=== PATIENT | female | born 1955 | race Hispanic/Latino ===

== ENCOUNTER 2018-10-06 09:09 | Emergency (ER) | payer OTHER ==
[2018-10-06] MEDS ORDERED: ONDANSETRON 4 MG/2 ML VIAL ONE (09:46)
[2018-10-06] MEDS ORDERED: NA CHLORIDE 0.9% 500 ML ONE (09:46)
[2018-10-06] MEDS ORDERED: MORPHINE 4 MG/ML SYR ONE (09:46)
[2018-10-06 10:16] LABS: Urine Blood 2+ (NEG); Urine Glucose NEGATIVE (NEG); Urine Protein NEGATIVE (NEG); Urine pH 5.5 (5.0-7.0)
[2018-10-06 10:19] LABS: Absolute Lymphocytes (CBC) 1.2 K/uL (0.7-4.9); Absolute Monocytes 0.6 K/uL (0.1-1.3); Absolute Neutrophil 7.9 K/uL (1.8-8.0); Basophils % 0.6 % (0-1.3); Eosinophils % 0.8 % (0-4.4); Hematocrit 38.1 % (36.0-45.0); MPV 9.2 fL (7.6-11.3); Monocytes % 6.5 % (3.3-12.3); RBC Red Blood Cell Count 4.18 M/uL (3.86-4.86)
[2018-10-06 10:32] LABS: Albumin 3.2 g/dL (3.4-5.0); Bilirubin Direct 0.1 mg/dL (0-0.2); Bilirubin Total 0.4 mg/dL (0.2-1.0); Potassium 3.8 mmol/L (3.5-5.1); Protein, Total 7.4 g/dL (6.4-8.2)
--- NOTE | 2018-10-06 11:14 | RAD REPORT ---
EXAM DESCRIPTION: CT - Abdomen Pelvis W Contrast - 10/06/2018 10:56 am CLINICAL HISTORY: Left lower quadrant pain COMPARISON: October 2012 TECHNIQUE: Biphasic, helical CT imaging of the abdomen and pelvis was performed following 100 ml non -ionic IV contrast. No oral contrast administered. All CT scans are performed using dose optimization technique as appropriate and may include automated exposure control or mA/KV adjustment according to patient size. A FINDINGS: No suspicious findings in the lung bases. The liver, spleen, and pancreas show no suspicious findings. Gallbladder and biliary tree are also wi thout suspicious finding. Gallstones can be occult on CT imaging. Symmetric renal function is seen with no hydronephrosis or suspicious renal mass. No pyelonephritis o r acute parenchymal process. No bladder abnormalities. No adrenal abnormalities. No stomach or small bowel acute finding. No appendicitis findings. Moderate stool volume in the right -side of the colon. Sigmoid colon shows a 7 centimeter long segment of circumferential wall thickenin g with stranding in the adjacent fat. Infectious/inflammatory process is favored over malignancy. Mal ignancy is not excluded but can be correlated with a follow-up colonoscopy after medical management. Patient has moderate diverticulosis. Trace amount of free fluid adjacent to the involved colon. No ex traluminal free air or abscess. No extravasation of bowel content suspected. No free air or pneumatos is. No hernia, mass or bulky lymphadenopathy. Uterus is absent. Ovaries are absent or atrophic. No suspicious bony findings. IMPRESSION: Moderate sigmoid diverticulitis. Malignancy of the sigmoid colon is unlikely but can be correlated with follow-up endoscopic evaluation after medical management. No abscess, free air or surgically emergent finding.
--- NOTE | 2018-10-06 11:57 | ER ---
Nurse's Notes [facility] Name: Ginger Marquez Age: 63 yrs Sex: Female : 1955 Arrival Date: 10/06/2018 Time: 09:13 Bed 14 Private MD: Diagnosis: Sigmoid Diverticulitis;Abdominal and pelvic pain Presentation: 10/06 09:22 Presenting complaint: Patient states: LLQ pain that radiates to L lower back x 2 days, ph also reports nausea, denies V/D or urinary symptoms. Transition of care: patient was not received from another setting of care. Onset of symptoms was October 06, 2018. Risk Assessment: Do you want to hurt yourself or someone else? Patient reports no desire to harm self or others. Initial Sepsis Screen: Does the patient meet any 2 criteria? No. Patient's initial sepsis screen is negative. Does the patient have a suspected source of infection? No. Patient's initial sepsis screen is negative. Care prior to arrival: None. 09:22 Method Of Arrival: Ambulatory 09:22 Acuity: [place] 3 ph Historical: - Allergies: 09:25 Bactrim; ph - PMHx: 09:25 Hypertension; Hypothyroidism; Depression; ph - Immunization history:: Adult Immunizations unknown. - Social history:: Smoking status: Patient/guardian denies using tobacco. - Ebola Screening: : No symptoms or risks identified at this time. Screenin:20 Abuse screen: Denies threats or abuse. Denies injuries from another. Nutritional jl7 screening: No deficits noted. Tuberculosis screening: No symptoms or risk factors identified. Fall Risk IV access (20 points). Assessment: 09:55 General: Appears in no apparent distress. uncomfortable, Behavior is calm, cooperative, jl7 appropriate for age. Pain: Complains of pain in left lower quadrant and suprapubic area Pain radiates to left flank Pain currently is 7 out of 10 on a pain scale. Pain began 2-3 days ago. Is intermittent. Neuro: Level of Consciousness is awake, alert, obeys commands, Oriented to person, place, time, situation. Cardiovascular: Patient's skin is warm and dry. Respiratory: Airway is patent Respiratory effort is even, unlabored, Respiratory pattern is regular, symmetrical. GI: Abdomen is round non-distended, Reports nausea, Patient currently denies diarrhea, vomiting. : Denies burning with urination, inability to void, pain with urination urinary frequency. Derm: Skin is pink, warm \T\ dry. 11:00 Reassessment: Patient appears in no apparent distress at this time. Patient and/or jl7 family updated on plan of care and expected duration. Pain level reassessed. Patient is alert, oriented x 3, equal unlabored respirations, skin warm/dry/pink. Patient states symptoms have improved. 12:00 Reassessment: Patient appears in no apparent distress at this time. Patient and/or jl7 family updated on plan of care and expected duration. Pain level reassessed. Patient is alert, oriented x 3, equal unlabored respirations, skin warm/dry/pink. pt reports increased pain at this time, ERD notified, see MAR for orders. Vital Signs: 09:23 BP 152 / 62; Pulse 76; Resp 18; Temp 97.5; Pulse Ox 98% on R/A; Weight 92.08 kg; Height ph 5 ft. 3 in. (160.02 cm); 10:00 BP 148 / 59; Pulse 68; Resp 16 S; Pulse Ox 96% on R/A; Pain 7/10; jl7 10:37 Pain 3/10; jl7 12:00 BP 149 / 60; Pulse 69; Resp 16 S; Pulse Ox 98% on R/A; Pain 6/10; jl7 09:23 Body Mass Index 35.96 (92.08 kg, 160.02 cm) ph ED Course: 09:13 Patient arrived in ED. mr 09:16 Yana Abrams RN is Primary Nurse. jl7 09:23 Adrian Horn MD is Attending Physician. kdr 09:23 Triage completed. ph 09:25 Arm band placed on Patient placed in an exam room. ph 09:37 Radiology exam delayed due to lab results not completed at this time. (BUN/Creatinine). vr 10:00 Radiology exam delayed due to lab results not completed at this time. (BUN/Creatinine). kw1 10:20 Patient has correct armband on for positive identification. Placed in gown. Bed in low jl7 position. Call light in reach. Side rails up X 1. Pulse ox on. NIBP on. Warm blanket given. 10:20 Initial lab(s) drawn, by me, sent to lab. Urine collected: clean catch specimen, clear. jl7 Inserted saline lock: 20 gauge in right antecubital area, using aseptic technique. Blood collected. 10:54 CT completed. Patient tolerated procedure well. Patient moved to CT via wheelchair. vr Patient moved back from CT. 10:56 CT Abd/Pelvis - W/Contrast In Process Unspecified. EDMS 12:18 No provider procedures requiring assistance completed. IV discontinued, intact, jl7 bleeding controlled, No redness/swelling at site. Pressure dressing applied. Administered Medications: 10:00 Drug: NS 0.9% 500 ml Route: IV; Rate: bolus; Site: right antecubital; jl7 10:01 Drug: Zofran 4 mg Route: IVP; Site: right antecubital; jl7 10:19 Follow up: Response: No adverse reaction; Nausea is decreased jl7 10:03 Drug: morphine 4 mg Route: IVP; Site: right antecubital; jl7 10:37 Follow up: Pain 3/10 Adult; Response: No adverse reaction; Pain is decreased jl7 12:13 Drug: Flagyl 500 mg Route: PO; jl7 12:14 Follow up: Response: Medication administered at discharge. jl7 12:13 Drug: Cipro 500 mg Route: PO; jl7 12:15 Follow up: Response: Medication administered at discharge. jl7 12:13 Drug: [place] 10 mg-325 mg 1 tabs Route: PO; jl7 12:15 Follow up: Response: Medication administered at discharge. jl7 Outcome: 11:56 Discharge ordered by . kdr 12:18 Discharged to home ambulatory, with family. jl7 12:18 Condition: stable 12:18 Discharge instructions given to patient, family, Instructed on discharge instructions, follow up and referral plans. medication usage, Demonstrated understanding of instructions, follow-up care, medications, Prescriptions given X 4. 12:19 Patient left the ED. jl7 Signatures: Dispatcher [employer] EDMS Adrian Horn MD MD kdr Rivera, Mary mr Davis, Pam Ambrocio RN RN Yana Huff RN RN joi7 Mari Kear[place]1 Corrections: (The following items were deleted from the chart) 12:18 12:00 No provider procedures requiring assistance completed. jl7 jl7 12:18 12:00 IV discontinued, intact, bleeding controlled, No redness/swelling at site. jl7 Pressure dressing applied, jl7
--- NOTE | 2018-10-06 11:57 | EDPHYS ---
Physician Documentation [facility] Name: Ginger Marquez Age: 63 yrs Sex: Female : 1955 Arrival Date: 10/06/2018 Time: 09:13 Bed 14 Private MD: ED Physician Adrian Horn HPI: 10/06 09:34 This 63 yrs old Female presents to ER via Ambulatory with complaints of Flank kdr Pain. 09:34 The patient presents with abdominal pain in the lower abdomen, in the left lower kdr quadrant. Onset: The symptoms/episode began/occurred last night. The symptoms radiate to the left flank. Associated signs and symptoms: Pertinent positives: nausea and vomiting, diarrhea, fever, Pertinent negatives: anorexia, chest pain, constipation, palpitations, vaginal discharge, vomiting, vomiting blood. The symptoms are described as achy, crampy, intermittent, vague, waxing/waning. Modifying factors: The symptoms are alleviated by nothing, the symptoms are aggravated by movement, pressure, touching the area. Severity of pain: At its worst the pain was mild moderate just prior to arrival, in the emergency department the pain is unchanged. The patient has experienced similar episodes in the past, a few times, Has had diverticulitis in the past. The patient has not recently seen a physician. Historical: - Allergies: 09:25 Bactrim; ph - PMHx: 09:25 Hypertension; Hypothyroidism; Depression; ph - Immunization history:: Adult Immunizations unknown. - Social history:: Smoking status: Patient/guardian denies using tobacco. - Ebola Screening: : No symptoms or risks identified at this time. ROS: 09:34 Constitutional: Negative for fever, chills, and weight loss, Eyes: Negative for injury, kdr pain, redness, and discharge, ENT: Negative for injury, pain, and discharge, Neck: Negative for injury, pain, and swelling, Cardiovascular: Negative for chest pain, palpitations, and edema, Respiratory: Negative for shortness of breath, cough, wheezing, and pleuritic chest pain, Back: Negative for injury and pain, : Negative for injury, bleeding, discharge, and swelling, MS/Extremity: Negative for injury and deformity, Skin: Negative for injury, rash, and discoloration, Neuro: Negative for headache, weakness, numbness, tingling, and seizure activity. Psych: Negative for depression, anxiety, suicide ideation, homicidal ideation, and hallucinations, Allergy/Immunology: Negative for hives, rash, and allergies, Endocrine: Negative for neck swelling, polydipsia, polyuria, polyphagia, and marked weight changes, Hematologic/Lymphatic: Negative for swollen nodes, abnormal bleeding, and unusual bruising. 09:34 Abdomen/GI: Positive for abdominal pain, nausea and vomiting, Negative for constipation, abdominal cramps, abdominal distension, anorexia, dysphagia, hematemesis, black/tarry stool, rectal bleeding, bowel incontinence. Exam: 09:34 Constitutional: This is a well developed, well nourished patient who is awake, alert, kdr and in no acute distress. Head/Face: Normocephalic, atraumatic. Eyes: Pupils equal round and reactive to light, extra-ocular motions intact. Lids and lashes normal. Conjunctiva and sclera are non-icteric and not injected. Cornea within normal limits. Periorbital areas with no swelling, redness, or edema. Neck: Trachea midline, no thyromegaly or masses palpated, and no cervical lymphadenopathy. Supple, full range of motion without nuchal rigidity, or vertebral point tenderness. No Meningismus. Chest/axilla: Normal chest wall appearance and motion. Nontender with no deformity. No lesions are appreciated. Cardiovascular: Regular rate and rhythm with a normal S1 and S2. No gallops, murmurs, or rubs. Normal PMI, no JVD. No pulse deficits. Respiratory: Lungs have equal breath sounds bilaterally, clear to auscultation and percussion. No rales, rhonchi or wheezes noted. No increased work of breathing, no retractions or nasal flaring. Back: No spinal tenderness. No costovertebral tenderness. Full range of motion. Skin: Warm, dry with normal turgor. Normal color with no rashes, no lesions, and no evidence of cellulitis. MS/ Extremity: Pulses equal, no cyanosis. Neurovascular intact. Full, normal range of motion. Neuro: Awake and alert, GCS 15, oriented to person, place, time, and situation. Cranial nerves II-XII grossly intact. Motor strength 5/5 in all extremities. Sensory grossly intact. Cerebellar exam normal. Normal gait. Psych: Awake, alert, with orientation to person, place and time. Behavior, mood, and affect are within normal limits. 09:34 Abdomen/GI: Inspection: abdomen appears normal, obese Bowel sounds: active, diminished, in all quadrants, Palpation: soft, mild abdominal tenderness, in the suprapubic area, left upper quadrant and left lower quadrant. Vital Signs: 09:23 BP 152 / 62; Pulse 76; Resp 18; Temp 97.5; Pulse Ox 98% on R/A; Weight 92.08 kg; Height ph 5 ft. 3 in. (160.02 cm); 10:00 BP 148 / 59; Pulse 68; Resp 16 S; Pulse Ox 96% on R/A; Pain 7/10; jl7 10:37 Pain 3/10; jl7 12:00 BP 149 / 60; Pulse 69; Resp 16 S; Pulse Ox 98% on R/A; Pain 6/10; jl7 09:23 Body Mass Index 35.96 (92.08 kg, 160.02 cm) ph MDM: 09:34 Data reviewed: vital signs, nurses notes, lab test result(s), radiologic studies. kdr Counseling: I had a detailed discussion with the patient and/or guardian regarding: the historical points, exam findings, and any diagnostic results supporting the discharge/admit diagnosis, lab results, radiology results, the need for outpatient follow up. 11:56 Patient medically screened. [facility] 10/06 09:34 Order name: Basic Metabolic Panel; Complete Time: 10:50 kdr 10/06 09:34 Order name: CBC with Diff; Complete Time: 10:50 kdr 10/06 09:34 Order name: Creatinine for Radiology; Complete Time: 10:50 kdr 10/06 09:34 Order name: Hepatic Function; Complete Time: 10:50 kdr 10/06 09:34 Order name: Lipase; Complete Time: 10:50 kdr 10/06 10:04 Order name: Urine Dipstick--Ancillary (enter results); Complete Time: 10:50 eb 10/06 09:34 Order name: IV Saline Lock; Complete Time: 10:17 kdr 10/06 09:34 Order name: CT Abd/Pelvis - W/Contrast; Complete Time: 11:54 kdr 10/06 09:34 Order name: Labs collected and sent; Complete Time: 10:17 kdr Administered Medications: 10:00 Drug: NS 0.9% 500 ml Route: IV; Rate: bolus; Site: right antecubital; jl7 10:01 Drug: Zofran 4 mg Route: IVP; Site: right antecubital; jl7 10:19 Follow up: Response: No adverse reaction; Nausea is decreased jl7 10:03 Drug: morphine 4 mg Route: IVP; Site: right antecubital; jl7 10:37 Follow up: Pain 3/10 Adult; Response: No adverse reaction; Pain is decreased jl7 12:13 Drug: Flagyl 500 mg Route: PO; jl7 12:14 Follow up: Response: Medication administered at discharge. jl7 12:13 Drug: Cipro 500 mg Route: PO; jl7 12:15 Follow up: Response: Medication administered at discharge. jl7 12:13 Drug: [place] 10 mg-325 mg 1 tabs Route: PO; jl7 12:15 Follow up: Response: Medication administered at discharge. jl7 Disposition: 10/06/18 11:56 Discharged to Home. Impression: Sigmoid Diverticulitis, Abdominal and pelvic pain. - Condition is Stable. - Discharge Instructions: Abdominal Pain, Adult, [id number]. - Prescriptions for Cipro 500 mg Oral Tablet - take 1 tablet by ORAL route every 12 hours for 10 days; 20 tablet. Flagyl 500 mg Oral Tablet - take 1 tablet by ORAL route every 6 hours for 10 days; 40 tablet. Tylenol- Codeine #3 300-30 mg Oral Tablet - take 2 tablets by ORAL route every 4-6 hours As needed Take one to two tablets every four to six hours as needed for pain.; 16 tablet. Zofran 4 mg Oral Tablet - take 1 tablet by ORAL route every 4-6 hours As needed; 16 tablet. - Medication Reconciliation Form, Thank You Letter, Antibiotic Education, Prescription Opioid Use form. - Follow up: Private Physician; When: 2 - 3 days; Reason: If symptoms return, Further diagnostic work-up, Recheck today's complaints, Continuance of care, Re-evaluation by your physician. - Problem is an acute exacerbation. - Symptoms have improved. Signatures: Dispatcher [employer] EDMS Adrian Horn MD MD kdr Hall, Patricia, RN RN Yana Huff RN RN jl7 Corrections: (The following items were deleted from the chart) 12:19 11:56 10/06/2018 11:56 Discharged to Home. Impression: Sigmoid Diverticulitis; jl7 Abdominal and pelvic pain. Condition is Stable. Forms are Medication Reconciliation Form, Thank You Letter, Antibiotic Education, Prescription Opioid Use. Follow up: Private Physician; When: 2 - 3 days; Reason: If symptoms return, Further diagnostic work-up, Recheck today's complaints, Continuance of care, Re-evaluation by your physician. Problem is an acute exacerbation. Symptoms have improved. kdr
[2018-10-06] MEDS ORDERED: metroNIDAZOLE 500 MG TABLET ONE (12:07)
[2018-10-06] MEDS ORDERED: HYDROCODONE/APAP 10/325 TAB ONE (12:08)
[2018-10-06] MEDS ORDERED: CIPROFLOXACIN HCL 500 MG TAB ONE (12:09)
== END 2018-10-06 12:19 | disposition home or self-care (01) ==
LOC: ER 09:09
DX: K57.32 Diverticulitis of large intestine without perforation or abscess without bleeding (principal); I10 Essential (primary) hypertension; Z88.1 Allergy status to other antibiotic agents
CPT/HCPCS: 36415; 74177; 80048; 80076; 81003; 83690; 85025; J2405; Q9967; 96374; 96375; 99284

== ENCOUNTER 2019-03-22 22:18 | Inpatient (IN) | payer OTHER ==
--- OUTSIDE RECORDS SUMMARY | 2019-03-22 22:20 | XMS REPORT ---
:1955 [facility] Address [address] [place] [place] [address] Care Team Providers Name Role Phone Unavailable Unavailable Unavailable Payers Payer Name Policy Type Policy Number Effective Date Expiration Date Problems This patient has no known problems. Allergies, Adverse Reactions, Alerts Allergy Name Allergy Status Severity Reaction(s) Onset Inactive Treating Comments Type Date Date Clinician levofloxacin DA Active SV 2018-06 00:00:0 0 fluconazole DA Active MO 2017-02 00:00:0 0 levofloxacin DA Active SV 2017-02 00:00:0 0 Medications This patient has no known medications.
[2019-03-22 23:53] LABS: Absolute Lymphocytes (CBC) 1.6 K/uL (0.7-4.9); Basophils % 0.3 % (0-1.3); Eosinophils % 2.2 % (0-4.4); Hematocrit 36.9 % (36.0-45.0); MPV 9.1 fL (7.6-11.3); Monocytes % 8.4 % (3.3-12.3); RBC Red Blood Cell Count 4.05 M/uL (3.86-4.86)
[2019-03-22 23:55] LABS: Urine Blood 1+ (NEG); Urine Glucose NEGATIVE (NEG); Urine Protein NEGATIVE (NEG)
[2019-03-22] MEDS ORDERED: FENTANYL CITR 100 MCG/2 ML ONE (23:57)
[2019-03-23 00:04] LABS: Albumin 3.2 g/dL (3.4-5.0); Bilirubin Direct 0.1 mg/dL (0-0.2); Bilirubin Total 0.3 mg/dL (0.2-1.0); Potassium 3.7 mmol/L (3.5-5.1); Protein, Total 7.6 g/dL (6.4-8.2)
[2019-03-23 00:06] LABS: Urine Bacteria <20 /HPF (<20); Urine Culture Reflex Order NOT NEEDED; Urine RBC <5 /HPF (NONE SEEN)
[2019-03-23] MEDS ORDERED: NA CHLORIDE 0.9% 50 ML IV ONE (01:49)
[2019-03-23] MEDS ORDERED: CEFOXITIN SODIUM 1 GM/VIAL ONE (01:49)
--- NOTE | 2019-03-23 02:49 | EDPHYS ---
Physician Documentation [facility] Name: Ginger Marquez Age: 63 yrs Sex: Female : 1955 Arrival Date: 03/22/2019 Time: 22:21 Bed 17 Private MD: ED Physician Austen [place] Historical: - Allergies: 03/22 22:37 Bactrim; ak1 - Home Meds: 22:37 losartan oral oral [Active]; primin [Active]; levothyroxine oral [Active]; ak1 22:38 Lexapro 15mg Oral once daily [Active]; ak1 - PMHx: 22:37 Depression; Hypertension; Hypothyroidism; Diverticulitis; ak1 - PSHx: 22:37 left knee replacement; Hysterectomy; Bladder suspension; ak1 - Immunization history:: Adult Immunizations up to date. - Social history:: Smoking status: Patient/guardian denies using tobacco. - Ebola Screening: : No symptoms or risks identified at this time. Vital Signs: 22:35 BP 159 / 67; Pulse 73; Resp 16; Temp 97.9; Pulse Ox 97% on R/A; Weight 95.25 kg (R); ak1 Height 5 ft. 3 in. (160.02 cm) (R); Pain 10/10; 23:00 BP 139 / 57; Pulse 72; Resp 17 S; Pulse Ox 100% on R/A; cc3 03/23 00:45 BP 129 / 59; Pulse 68; Resp 16 S; Pulse Ox 96% on R/A; cc3 01:18 BP 134 / 57; Pulse 69; Resp 16 S; Pulse Ox 98% on R/A; cc3 02:25 BP 127 / 53; Pulse 72; Resp 15 S; Pulse Ox 98% on R/A; cc3 03:33 BP 132 / 77; Pulse 75; Resp 16 S; Pulse Ox 98% on R/A; cc3 04:15 BP 131 / 63; Pulse 72; Resp 17 S; Pulse Ox 96% on R/A; cc3 03/22 22:35 Body Mass Index 37.20 (95.25 kg, 160.02 cm) ak1 MDM: 03/22 23:21 Patient medically screened. 03/22 22:53 Order name: Urine Microscopic Only; Complete Time: 00:23 03/22 23:24 Order name: Basic Metabolic Panel; Complete Time: 00:23 03/22 23:24 Order name: CBC with Diff; Complete Time: 00:23 03/22 23:24 Order name: Hepatic Function; Complete Time: 00:23 03/22 23:24 Order name: Lipase; Complete Time: 00:23 03/22 23:41 Order name: Urine Dipstick--Ancillary (enter results); Complete Time: 00:23 [facility] 03/22 22:53 Order name: Urine Dipstick-Ancillary (obtain specimen); Complete Time: 23:40 03/22 23:24 Order name: IV Saline Lock; Complete Time: 23:46 03/22 23:24 Order name: Labs collected and sent; Complete Time: 23:46 03/22 23:24 Order name: CT Stone Protocol gs Administered Medications: 23:40 Drug: fentaNYL (PF) 50 mcg Route: IVP; Site: right antecubital; cc3 03/23 00:30 Follow up: Response: No adverse reaction; Pain is decreased cc3 01:30 Drug: cefOXitin 1 grams Route: IVPB; Infused Over: 30 mins; Site: right antecubital; cc3 02:00 Follow up: Response: No adverse reaction; IV Status: Completed infusion; IV Intake: [id number] Disposition: 03/23/19 02:49 Hospitalization ordered by Marcio Camp for Inpatient Admission. Preliminary diagnosis is Diverticulitis of large intestine without perforation or abscess without bleeding. - Bed requested for Telemetry/MedSurg (Inpatient). - Status is Inpatient Admission. cc3 - Condition is Stable. - Problem is new. - Symptoms have improved. UTI on Admission? No Signatures: Dispatcher [employer] EDMS Ursula Sawyer RN RN ak1 Jessica Neville RN RN Austen Ellington MD MD Davina Last cc3 Corrections: (The following items were deleted from the chart) 03:21 02:49 Hospitalization Ordered by Marcio Camp MD for Inpatient Admission. Preliminary cg diagnosis is Diverticulitis of large intestine without perforation or abscess without bleeding. Bed requested for Telemetry/MedSurg (Inpatient). Status is Inpatient Admission. Condition is Stable. Problem is new. Symptoms have improved. UTI on Admission? No. gs 04:01 03:21 03/23/2019 02:49 Hospitalization Ordered by Marcio Camp MD for Inpatient cg Admission. Preliminary diagnosis is Diverticulitis of large intestine without perforation or abscess without bleeding. Bed requested for Telemetry/MedSurg (Inpatient). Status is Inpatient Admission. Condition is Stable. Problem is new. Symptoms have improved. UTI on Admission? No. cg 04:31 04:01 03/23/2019 02:49 Hospitalization Ordered by Marcio Camp MD for Inpatient cc3 Admission. Preliminary diagnosis is Diverticulitis of large intestine without perforation or abscess without bleeding. Bed requested for Telemetry/MedSurg (Inpatient). Status is Inpatient Admission. Condition is Stable. Problem is new. Symptoms have improved. UTI on Admission? No. cg
--- NOTE | 2019-03-23 02:49 | ER ---
Nurse's Notes [facility] Name: Ginger Marquez Age: 63 yrs Sex: Female : 1955 Arrival Date: 03/22/2019 Time: 22:21 Bed 17 Private MD: Diagnosis: Diverticulitis of large intestine without perforation or abscess without bleeding Presentation: 03/22 22:34 Presenting complaint: Patient states: lower abd pain and burning with urination since ak1 last . Transition of care: patient was not received from another setting of care. Onset of symptoms is unknown. Risk Assessment: Do you want to hurt yourself or someone else? Patient reports no desire to harm self or others. Initial Sepsis Screen: Does the patient meet any 2 criteria? No. Patient's initial sepsis screen is negative. Does the patient have a suspected source of infection? No. Patient's initial sepsis screen is negative. Care prior to arrival: None. 22:34 Method Of Arrival: Ambulatory ak1 22:34 Acuity: [place] 3 ak1 22:35 Note pt started macrobid . ak1 Triage Assessment: 22:37 General: Appears in no apparent distress. Behavior is calm, cooperative. ak1 Historical: - Allergies: 22:37 Bactrim; ak1 - Home Meds: 22:37 losartan oral oral [Active]; primin [Active]; levothyroxine oral [Active]; ak1 22:38 Lexapro 15mg Oral once daily [Active]; ak1 - PMHx: 22:37 Depression; Hypertension; Hypothyroidism; Diverticulitis; ak1 - PSHx: 22:37 left knee replacement; Hysterectomy; Bladder suspension; ak1 - Immunization history:: Adult Immunizations up to date. - Social history:: Smoking status: Patient/guardian denies using tobacco. - Ebola Screening: : No symptoms or risks identified at this time. Screenin:38 Abuse screen: Denies threats or abuse. Denies injuries from another. Nutritional ak1 screening: No deficits noted. Tuberculosis screening: No symptoms or risk factors identified. Fall Risk None identified. Assessment: 23:15 Pain: Complains of pain in abdomen. GI: Bowel sounds present X 4 quads. Abd is soft and cc3 non tender X 4 quads. 23:15 General: Appears in no apparent distress. uncomfortable, Behavior is calm, cooperative, cc3 appropriate for age. Neuro: Level of Consciousness is awake, alert, obeys commands, Oriented to person, place, time, situation, Appropriate for age. Cardiovascular: Patient's skin is warm and dry. Respiratory: Airway is patent Respiratory effort is even, unlabored, Respiratory pattern is regular, symmetrical. EENT: No signs and/or symptoms were reported regarding the EENT system. Derm: Skin is intact, is healthy with good turgor, Skin is pink, warm \T\ dry. normal. Musculoskeletal: Circulation, motion, and sensation intact. Range of motion: intact in all extremities. 03/23 00:18 Reassessment: Patient appears in no apparent distress at this time. Patient and/or cc3 family updated on plan of care and expected duration. Pain level reassessed. Patient is alert, oriented x 3, equal unlabored respirations, skin warm/dry/pink. 01:26 Reassessment: Patient appears in no apparent distress at this time. Patient and/or cc3 family updated on plan of care and expected duration. Pain level reassessed. Patient is alert, oriented x 3, equal unlabored respirations, skin warm/dry/pink. 02:18 Reassessment: Patient appears in no apparent distress at this time. Patient and/or cc3 family updated on plan of care and expected duration. Pain level reassessed. Patient is alert, oriented x 3, equal unlabored respirations, skin warm/dry/pink. 03:00 Reassessment: Patient appears in no apparent distress at this time. Patient and/or cc3 family updated on plan of care and expected duration. Pain level reassessed. Patient is alert, oriented x 3, equal unlabored respirations, skin warm/dry/pink. Patient for admission, Dr. Camp at bedside. 04:15 Reassessment: Patient appears in no apparent distress at this time. Patient and/or cc3 family updated on plan of care and expected duration. Pain level reassessed. Patient is alert, oriented x 3, equal unlabored respirations, skin warm/dry/pink. Room available in 426, called for report and handed over to [facility] for continuity of care and management. 04:30 Reassessment: Patient appears in no apparent distress at this time. Patient and/or cc3 family updated on plan of care and expected duration. Pain level reassessed. Patient is alert, oriented x 3, equal unlabored respirations, skin warm/dry/pink. Patient left ER for admission vitally stable by wheelchair escorted by me and the patient's . Patient denies pain at this time. Patient states feeling better. Patient states symptoms have improved. Vital Signs: 03/22 22:35 BP 159 / 67; Pulse 73; Resp 16; Temp 97.9; Pulse Ox 97% on R/A; Weight 95.25 kg (R); ak1 Height 5 ft. 3 in. (160.02 cm) (R); Pain 10/10; 23:00 BP 139 / 57; Pulse 72; Resp 17 S; Pulse Ox 100% on R/A; cc3 03/23 00:45 BP 129 / 59; Pulse 68; Resp 16 S; Pulse Ox 96% on R/A; cc3 01:18 BP 134 / 57; Pulse 69; Resp 16 S; Pulse Ox 98% on R/A; cc3 02:25 BP 127 / 53; Pulse 72; Resp 15 S; Pulse Ox 98% on R/A; cc3 03:33 BP 132 / 77; Pulse 75; Resp 16 S; Pulse Ox 98% on R/A; cc3 04:15 BP 131 / 63; Pulse 72; Resp 17 S; Pulse Ox 96% on R/A; cc3 03/22 22:35 Body Mass Index 37.20 (95.25 kg, 160.02 cm) ak1 ED Course: 03/22 22:21 Patient arrived in ED. es 22:35 Triage completed. ak1 22:38 Patient has correct armband on for positive identification. Bed in low position. Call ak1 light in reach. Side rails up X 1. Adult w/ patient. 22:38 Arm band placed on Patient placed in an exam room, on a stretcher, Patient notified of ak1 wait time. 22:53 Austen Ellington MD is Attending Physician. gs 23:00 Inserted saline lock: 20 gauge in right antecubital area, using aseptic technique. ea Blood collected. 23:15 Davina Last is Primary Nurse. cc3 03/23 00:41 CT Stone Protocol In Process Unspecified. EDMS 02:47 Marcio Camp MD is Hospitalizing Provider. gs 04:15 No provider procedures requiring assistance completed. Patient admitted, IV remains in cc3 place. Administered Medications: 03/22 23:40 Drug: fentaNYL (PF) 50 mcg Route: IVP; Site: right antecubital; cc3 03/23 00:30 Follow up: Response: No adverse reaction; Pain is decreased cc3 01:30 Drug: cefOXitin 1 grams Route: IVPB; Infused Over: 30 mins; Site: right antecubital; cc3 02:00 Follow up: Response: No adverse reaction; IV Status: Completed infusion; IV Intake: [id number] Intake: 02:00 IV: 50ml; Total: 50ml. cc3 Outcome: 02:49 Decision to Hospitalize by Provider. gs 04:15 Admitted to Tele accompanied by nurse, family with patient, via wheelchair, room 426, cc3 with chart, Report called to [facility] 04:15 Condition: stable 04:15 Instructed on the need for admit, Demonstrated understanding of instructions. 04:31 Patient left the ED. cc3 Signatures: Dispatcher [employer] Angeline Briseno Amber RN RN ak1 Beba Farias RN RN ea Starr, Gregory, MD MD gs Cordel, Charlene cc3
--- NOTE | 2019-03-23 03:22 | P.HP ---
Certification for Inpatient Patient admitted to: Inpatient With expected LOS: >2 Midnights Practitioner: I am a practitioner with admitting privileges, knowledge of patient current condition, hospital course, and medical plan of care. Services: Services provided to patient in accordance with Admission requirements found in Title 42 Section 412.3 of the Code of Federal Regulations Patient History Date of Service: 03/23/19 Reason for admission: Diverticulitis History of Present Illness: Ms Marquez is a 63 years old woman with history of HTN, Hypothyroidism, who start about 4 days ago with lower abdominal pain, more localized on LLQ, associated with nausea but no vomiting. She also had burning urination. The patient went to see her PCP and was prescribed antibiotics for UTI. Then, abdominal pain got worse, intensity 8/10, constant. She continue to be nauseated, some diarrhea, and start having chills. Lab work shows leukocytosis 12.0K, CT abd/pelvis consistent with acute sigmoid diverticulitis. No signs of abscess or perforation. Home medications list reviewed: Yes - Past Medical/Surgical History -: diverticulitis -: HTN -: hypothyroidism -: left knee replacement -: hysterectomy -: bladder suspension - Family History Family History: Reviewed- Non-Contributory - Social History Smoking Status: Former smoker Alcohol use: No CD- Drugs: No Place of Residence: Home Review of Systems 10-point ROS is otherwise unremarkable Physical Examination - Physical Exam General: Alert, In no apparent distress HEENT: Atraumatic, PERRLA, Mucous membr. moist/pink, EOMI, Sclerae nonicteric Neck: Supple, 2+ carotid pulse no bruit, No LAD, Without JVD or thyroid abnormality Respiratory: Clear to auscultation bilaterally, Normal air movement Cardiovascular: Regular rate/rhythm, Normal S1 S2 Gastrointestinal: Normal bowel sounds, Tenderness (LLQ) Musculoskeletal: No tenderness Integumentary: No rashes Neurological: Normal speech, Normal strength at 5/5 x4 extr, Normal tone, Normal affect Lymphatics: No axilla or inguinal lymphadenopathy - Studies Laboratory Data (last 24 hrs) 03/22/19 23:30: WBC 12.0 H, Hgb 12.5, Hct 36.9, Plt Count 296 03/22/19 23:30: Sodium 138, Potassium 3.7, BUN 17, Creatinine 0.74, Glucose 111 H, Total Bilirubin 0.3, AST 11 L, ALT 13, Alkaline Phosphatase 79, Lipase 44 L Assessment and Plan - Problems (Diagnosis) (1) Diverticulitis Current Visit: Yes Status: Acute (2) HTN (hypertension) Current Visit: Yes Status: Acute Qualifiers: Hypertension type: essential hypertension Qualified Code(s): I10 - Essential (primary) hypertension (3) Hypothyroidism Current Visit: Yes Status: Acute Qualifiers: Hypothyroidism type: unspecified Qualified Code(s): E03.9 - Hypothyroidism , unspecified - Plan Will admit the patient due to acute diverticulitis. Her UA is slightly abnormal as well. Order empiric treatment with Cipro and Flagyl IV. Check C.Diff. Order symptomatic medication for nausea and pain. - Advance Directives Does patient have a Living Will: No Does patient have a Durable POA for Healthcare: No - Code Status/Comfort Care Code Status Assessed: Yes Code Status: Full Code
[2019-03-23] MEDS ORDERED: ONDANSETRON 4 MG/2 ML VIAL IV PRN (04:46)
[2019-03-23] MEDS ORDERED: ACETAMINOPHEN 500 MG TAB PO PRN (04:46)
[2019-03-23] MEDS: NA CHLORIDE 0.9% 1,000 ML IV SCH ×3 (05:00→20:13)
[2019-03-23] MEDS: KETOROLAC 30 MG/ML INJ IV PRN ×3 (05:20→18:47)
[2019-03-23] MEDS: METRONIDAZOLE 500mg IVPB 500 MG/100 ML BAG IV SCH ×2 (08:30→09:00)
[2019-03-23] MEDS: CIPROFLOXACIN 400mg IV 400 MG/200 ML BAG IV SCH ×2 (08:31→20:13)
[2019-03-23 08:47] VITALS: BMI 39.6
[2019-03-23] MEDS ORDERED: DIPHENHYDRAMINE 25 MG TAB/CAP PO STA (08:49)
--- NOTE | 2019-03-23 09:53 | RAD REPORT ---
EXAM DESCRIPTION: CT - Stone Protocol - 03/23/2019 2:37 am CLINICAL HISTORY: The patient is 63 years old and is Female; ABD PAIN TECHNIQUE: Axial computed tomography images of the abdomen and pelvis without intravenous contrast. Sagittal and coronal reformatted images were created and reviewed. This CT exam was performed usi ng one or more of the following dose reduction techniques: automated exposure control, adjustment o f the mA and/or kV according to patient size, and/or use of iterative reconstruction technique. COMPARISON: Comparison: CT of the abdomen and pelvis October 06, 2018. FINDINGS: LUNG BASES: Unremarkable. No mass. No consolidation. ABDOMEN: LIVER: There is a diffuse decrease in hepatic parenchymal density, consistent with fatty infiltr ation. The liver is enlarged. GALLBLADDER AND BILE DUCTS: No calcified stones. No ductal dilation. PANCREAS: Unremarkable. No ductal dilation. SPLEEN: Unremarkable. ADRENALS: Unremarkable. No mass. KIDNEYS AND URETERS: No obstructing stones. No hydronephrosis. STOMACH AND BOWEL: The stomach is decompressed. The small bowel is normal in caliber. Stool is p resent throughout the colon. Scattered colonic diverticula are noted. Colonic wall thickening with sainz rrounding inflammatory stranding involving the sigmoid colon is present. PELVIS: APPENDIX: The appendix is normal in caliber without surrounding inflammation. BLADDER: The bladder is moderately distended. No stones. REPRODUCTIVE: The patient is status post hysterectomy. ABDOMEN and PELVIS: INTRAPERITONEAL SPACE: Unremarkable. No free air. No significant fluid collection. BONES/JOINTS: No acute fracture. SOFT TISSUES: The soft tissues are normal. VASCULATURE: Unremarkable. No abdominal aortic aneurysm. LYMPH NODES: Unremarkable. No enlarged lymph nodes. IMPRESSION: Findings consistent with acute sigmoid colon diverticulitis. No evidence of a diverticul ar abscess at this time. Electronically signed by: Bety Waters MD 03/23/2019 12:52 AM CDT Due to temporary technical issues with the PACS/Fluency reporting system, reports are being signed by the in house radiologist as a courtesy to ensure prompt reporting. The interpreting radiologist is ryley robertsonly responsible for the content of the report.
[2019-03-24] MEDS: KETOROLAC 30 MG/ML INJ IV PRN ×3 (01:35→15:20)
[2019-03-24 04:30] LABS: Absolute Lymphocytes (CBC) 2.5 K/uL (0.7-4.9); Basophils % 0.4 % (0-1.3); Hematocrit 31.3 % (36.0-45.0); Lymphocytes % 34.5 % (15.3-44.8); MPV 9.3 fL (7.6-11.3); Monocytes % 8.5 % (3.3-12.3); RBC Red Blood Cell Count 3.43 M/uL (3.86-4.86)
[2019-03-24 04:38] LABS: Magnesium 1.9 mg/dL (1.8-2.4)
[2019-03-24] MEDS: CIPROFLOXACIN 400mg IV 400 MG/200 ML BAG IV SCH (08:00)
[2019-03-24] MEDS: NA CHLORIDE 0.9% 1,000 ML IV SCH ×2 (10:46→14:31)
--- NOTE | 2019-03-24 14:55 | P.PN ---
Subjective Date of Service: 03/24/19 Chief Complaint: Diverticulitis Subjective: Improving Patient seen and examined at bedside. No family at bedside. Chart reviewed and case discussed with nursing staff. Patient reports improvement in abdominal pain. Denies any nausea/vomting, fevers , chills No bowel movement but passing gas. Review of Systems 10-point ROS is otherwise unremarkable Physical Examination - Vital Signs Temperature: 97.3 F Blood Pressure: 130/58 Pulse: 61 Respirations: 16 Pulse Ox (%): 94 - Physical Exam General: Alert, In no apparent distress, Oriented x3 HEENT: Atraumatic, PERRLA, EOMI Neck: Supple, JVD not distended Respiratory: Clear to auscultation bilaterally, Normal air movement Cardiovascular: Regular rate/rhythm, Normal S1 S2 Gastrointestinal: Normal bowel sounds, Tenderness (1+ pain on palpation, LLQ) Musculoskeletal: No tenderness Integumentary: No rashes Neurological: Normal speech, Normal tone, Normal affect Lymphatics: No axilla or inguinal lymphadenopathy Assessment And Plan - Current Problems (Diagnosis) (1) Diverticulitis Current Visit: Yes Status: Acute Plan: Improving. - Flagyl discontinued due to allergic reaction. Medication added to list of allergies. Ciprofloxacin adjusted to zosyn to add anaerobic coverage. - Start CLD, advance as tolerated (2) HTN (hypertension) Current Visit: Yes Status: Acute Plan: Stable, continue home medications. Qualifiers: Hypertension type: essential hypertension Qualified Code(s): I10 - Essential (primary) hypertension (3) Hypothyroidism Current Visit: Yes Status: Acute Plan: Stable, continue home medications Qualifiers: Hypothyroidism type: unspecified Qualified Code(s): E03.9 - Hypothyroidism , unspecified - Plan DVT prophylaxis: Lovenox GI prophylaxis: None Diet: CLD, advance as tolerated Disposition: Pending symptomatic improvement.
[2019-03-24] MEDS: PIPER/TAZO/NS 3.375gm 3.375 GM/100 ML BAG IV SCH (16:19)
[2019-03-24] MEDS ORDERED: FLUCONAZOLE 100 MG TAB PO ONE (17:00)
[2019-03-24] MEDS: LOSARTAN/HCTZ 50-12.5 PO SCH (20:45)
[2019-03-24] MEDS: ESCITALOPRAM 5 MG PO SCH (20:47)
[2019-03-24] MEDS: ESCITALOPRAM 10 MG TABLETS PO SCH (20:48)
[2019-03-24] MEDS ORDERED: MELATONIN 3 MG TABLET PO PRN (21:47)
[2019-03-25] MEDS: PIPER/TAZO/NS 3.375gm 3.375 GM/100 ML BAG IV SCH ×2 (01:00→08:07)
[2019-03-25] MEDS: NA CHLORIDE 0.9% 1,000 ML IV SCH ×2 (01:00→06:46)
[2019-03-25] MEDS ORDERED: LEVOTHYROXINE SOD 0.075 MG TAB PO SCH (06:00)
[2019-03-25] MEDS: LOSARTAN/HCTZ 50-12.5 PO SCH (08:07)
[2019-03-25] MEDS: ESCITALOPRAM 5 MG PO SCH (08:09)
[2019-03-25] MEDS: ESCITALOPRAM 10 MG TABLETS PO SCH (08:10)
[2019-03-25] MEDS ORDERED: LOSARTAN POTASSIUM 50 MG TABLET PO SCH (09:00)
[2019-03-25] MEDS ORDERED: ESCITALOPRAM 20 MG TAB PO SCH (09:00)
[2019-03-25] MEDS ORDERED: ESTROGENS CONJUGATED 0.9 MG PO SCH (09:00)
[2019-03-25] MEDS ORDERED: HOME MED 1 EA UNK (Losartan/Hydrochlorothiazide [Losartan-Hctz 100-12.5 Mg Tab] 1 TAB) PO SCH (09:00)
[2019-03-25 09:37] VITALS: O2SAT 94
--- NOTE | 2019-03-25 10:37 | P.DS ---
Admission Date: 03/23/19 Discharge Date: 03/25/19 Disposition: ROUTINE DISCHARGE Discharge Condition: GOOD Reason for Admission: Diverticulitis - Problems (1) Diverticulitis Current Visit: Yes Status: Acute (2) HTN (hypertension) Current Visit: Yes Status: Acute Qualifiers: Hypertension type: essential hypertension Qualified Code(s): I10 - Essential (primary) hypertension (3) Hypothyroidism Current Visit: Yes Status: Acute Qualifiers: Hypothyroidism type: unspecified Qualified Code(s): E03.9 - Hypothyroidism , unspecified Brief History of Present Illness: Ms Marquez is a 63 years old woman with history of HTN, Hypothyroidism, who start about 4 days ago with lower abdominal pain, more localized on LLQ, associated with nausea but no vomiting. She also had burning urination. The patient went to see her PCP and was prescribed antibiotics for UTI. Then, abdominal pain got worse, intensity 8/10, constant. She continue to be nauseated, some diarrhea, and start having chills. Lab work shows leukocytosis 12.0K, CT abd/pelvis consistent with acute sigmoid diverticulitis. No signs of abscess or perforation. Hospital Course: Patient was admitted for acute diverticulitis. She was started on IV Flagyl ciprofloxacin. She had a reaction after Flagyl. This medication was discontinued, added to list of allergies. Ciprofloxacin was adjusted to Zosyn to add anaerobic coverage. Her symptoms improved. She tolerated the new antibiotics well. She was started on clear liquid diet, advance as tolerated. Prior to discharge, she was tolerating a GI soft diet. Her abdominal pain, nausea vomiting had resolved. She remained otherwise hemodynamically stable. Her labs were stable. Her diagnoses and treatment plan were explained to her. All questions were answered and then she was discharged home in a safe and stable manner. She was discharged on oral ciprofloxacin and Augmentin to complete a 12 day course. She was instructed to follow up with the primary care physician in 2-3 days. Vital Signs/Physical Exam: Temp Pulse Resp BP Pulse Ox 97.5 F 61 14 134/60 96 03/25/19 08:00 03/25/19 08:07 03/25/19 08:00 03/25/19 08:07 03/25/19 08:00 General: Alert, In no apparent distress, Oriented x3, Obese HEENT: Atraumatic, PERRLA, EOMI Neck: Supple, JVD not distended Respiratory: Clear to auscultation bilaterally, Normal air movement Cardiovascular: Regular rate/rhythm, Normal S1 S2 Gastrointestinal: Normal bowel sounds, No tenderness Musculoskeletal: No tenderness Integumentary: No rashes Neurological: Normal speech, Normal tone, Normal affect Lymphatics: No axilla or inguinal lymphadenopathy Laboratory Data at Discharge: WBC 7.3 K/uL (4.3-10.9) D 03/24/19 03:43 Hgb 10.6 g/dL (12.0-15.0) L 03/24/19 03:43 Hct 31.3 % (36.0-45.0) L D 03/24/19 03:43 Plt Count 254 K/uL (152-406) 03/24/19 03:43 Sodium 140 mmol/L (136-145) 03/24/19 03:43 Potassium 4.0 mmol/L (3.5-5.1) 03/24/19 03:43 BUN 20 mg/dL (7-18) H 03/24/19 03:43 Creatinine 0.83 mg/dL (0.55-1.3) 03/24/19 03:43 Glucose 107 mg/dL (74-106) H 03/24/19 03:43 Magnesium 1.9 mg/dL (1.8-2.4) 03/24/19 03:43 Total Bilirubin 0.3 mg/dL (0.2-1.0) 03/22/19 23:30 AST 11 U/L (15-37) L 03/22/19 23:30 ALT 13 U/L (12-78) 03/22/19 23:30 Alkaline Phosphatase 79 U/L (45-117) 03/22/19 23:30 Lipase 44 U/L (73-393) L 03/22/19 23:30 Home Medications: RX: Escitalopram [Lexapro*] 15 mg PO DAILY 03/23/19 RX: Estrogens, Conjugated [Premarin] 0.9 mg PO DAILY 03/23/19 RX: Levothyroxine Sodium 75 mcg PO [id number] 03/23/19 RX: Losartan/Hydrochlorothiazide [Losartan-Hctz 100-12.5 mg Tab] 1 tab PO DAILY 03/23/19 RX: Temazepam [Restoril*] 15 mg PO BEDTIME PRN 03/24/19 Amoxicillin/Potassium Clav [Augmentin 500-125 Tablet] 1 each PO Q12HR #20 tablet 03/25/19 Ciprofloxacin HCl [Cipro 500 MG Tablet] 500 mg PO BID #20 tab 03/25/19 New Medications: Amoxicillin/Potassium Clav [Augmentin 500-125 Tablet] 1 each PO Q12HR #20 tablet Ciprofloxacin HCl [Cipro 500 MG Tablet] 500 mg PO BID #20 tab Followup: Tayo Schaffer MD [Primary Care Provider] - 2-3 Days Time spent managing pt's care (in minutes): 55
[2019-03-25 12:04] VITALS: BP 148/60; TEMP 98.4
== END 2019-03-25 12:28 | disposition home or self-care (01) | DRG 392 ==
LOC: ER 22:18 → ERHOLD 03-23 03:07 → 4TH 03-23 04:22
PROVIDERS: ADMIT Internal Medicine; ATTEND Family Medicine
DX: K57.92 Diverticulitis of intestine, part unspecified, without perforation or abscess without bleeding (principal); I10 Essential (primary) hypertension; Z87.891 Personal history of nicotine dependence; E03.9 Hypothyroidism, unspecified
CPT/HCPCS: 36415; 74176; 76377; 80048; 80076; 81003; 81015; 83690; 83735; 85025; 96365; 96375; 99285; J0694; J0744; J2405; J2543; J3010; J7030

== ENCOUNTER 2023-03-31 02:21 | Emergency (ER) | payer OTHER ==
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
[2023-03-31] MEDS ORDERED: MORPHINE 4 MG/ML SYR ONE (03:05)
[2023-03-31] MEDS ORDERED: ONDANSETRON 4 MG/2 ML VIAL ONE (03:05)
[2023-03-31 03:13] LABS: Renal Epithelial <5 /HPF (None Seen); Specific Gravity 1.022 (1.005-1.030); Urine Bacteria None Seen /HPF (<20); Urine Bilirubin 1+ (Negative); Urine Blood Negative (Negative); Urine Clarity Extremely Turbid (Clear); Urine Color Dark-Yellow (Yellow); Urine Glucose NEGATIVE (Negative); Urine Mucus Slight /HPF (None Seen); Urine Protein TRACE (Negative); Urine RBC <5 /HPF (None Seen); Urine Urobilinogen 1+ (Normal); Urine pH 5.5 (5.0-7.0)
[2023-03-31 03:47] LABS: Absolute Lymphocytes (CBC) 0.6 K/uL (0.7-4.9); Hematocrit 34.3 % (36.0-45.0); Lymphocytes % 4.9 % (15.3-44.8); MCV 90.6 fL (80-100); RBC Red Blood Cell Count 3.79 M/uL (3.86-4.86)
[2023-03-31 04:14] LABS: Bilirubin Total 0.5 mg/dL (0.2-1.0); Potassium 3.2 mEq/L (3.5-5.1); Protein, Total 7.2 g/dL (6.4-8.2)
[2023-03-31 05:28] LABS: Blood Morphology Comment NOT SEEN (NOT SEEN); Platelet Estimate ADEQ
--- NOTE | 2023-03-31 05:36 | ER ---
Nurse's Notes [facility] Name: Ginger Marquez Age: 67 yrs Sex: Female : 1955 Arrival Date: 03/31/2023 Time: 02:21 Bed 6 Private MD: Diagnosis: Diverticulitis of large intestine without perforation or abscess without bleeding;Abdominal pain, unspecified;Essential (primary) hypertension Presentation: 03/31 02:39 Chief complaint: Patient states: I started having urination problems on and jb4 abdominal pain on Friday. Coronavirus screen: At this time, the client does not indicate any symptoms associated with coronavirus-19. Ebola Screen: No symptoms or risks identified at this time. Initial Sepsis Screen: Does the patient meet any 2 criteria? No. Patient's initial sepsis screen is negative. Does the patient have a suspected source of infection? No. Patient's initial sepsis screen is negative. Risk Assessment: Do you want to hurt yourself or someone else? Patient reports no desire to harm self or others. Onset of symptoms was March 31, 2023. Transition of care: patient was not received from another setting of care. 02:39 Method Of Arrival: Wheelchair jb4 02:39 Acuity: [place] 3 jb4 Historical: - Allergies: 02:42 Bactrim; jb4 02:42 Levaquin; jb4 - PMHx: 02:42 Depression; Diverticulitis; Hypertension; Hypothyroidism; jb4 - PSHx: 02:42 Left knee replacement; jb4 - Immunization history:: Adult Immunizations up to date, Pneumococcal vaccine is not up to date, Flu vaccine is not up to date. - Social history:: Smoking status: Patient denies any tobacco usage or history of. Screenin:48 [facility] ED Fall Risk Assessment (Adult) History of falling in the last 3 months, jb4 including since admission No falls in past 3 months (0 pts) Confusion or Disorientation No (0 pts) Score/Fall Risk Level 0 - 2 = Low Risk Oriented to surroundings, Maintained a safe environment. Abuse screen: Denies threats or abuse. Nutritional screening: No deficits noted. Tuberculosis screening: No symptoms or risk factors identified. Assessment: 02:43 General: Appears in no apparent distress. uncomfortable, Behavior is calm, cooperative, jb4 appropriate for age. Pain: Complains of pain in abdomen Pain does not radiate. Pain currently is 8 out of 10 on a pain scale. Neuro: Level of Consciousness is awake, alert, obeys commands, Oriented to person, place, time, situation. Cardiovascular: Patient's skin is warm and dry. Respiratory: Airway is patent Respiratory effort is even, unlabored, Respiratory pattern is regular, symmetrical. GI: Abdomen is non-distended, obese, Abd is soft X 4 quads Abdomen is tender to palpation X 4 quads. Reports upper abdominal pain. :. EENT: No signs and/or symptoms were reported regarding the EENT system. Derm: Skin is intact, Skin is pink, warm \T\ dry. Musculoskeletal: Circulation, motion, and sensation intact. Range of motion: intact in all extremities. 03:42 Reassessment: Patient appears in no apparent distress at this time. Patient and/or jb4 family updated on plan of care and expected duration. Pain level reassessed. Patient is alert, oriented x 3, equal unlabored respirations, skin warm/dry/pink. 05:01 Reassessment: Patient appears in no apparent distress at this time. Patient and/or jb4 family updated on plan of care and expected duration. Pain level reassessed. Patient is alert, oriented x 3, equal unlabored respirations, skin warm/dry/pink. Vital Signs: 02:39 BP 183 / 66; Pulse 83; Resp 16; Temp 98.1(O); Pulse Ox 98% on R/A; Weight 102.51 kg; jb4 Height 5 ft. 3 in. ; 03:30 BP 124 / 42; Pulse 70; Resp 16; Pulse Ox 93% on R/A; jb4 05:01 BP 150 / 50; Pulse 66; Resp 16; Pulse Ox 95% on R/A; jb4 02:39 Body Mass Index 40.03 (102.51 kg, 160.02 cm) jb4 ED Course: 02:25 Patient arrived in ED. ja2 02:26 Ousmane Newell DO is Attending Physician. ms3 02:39 Rodríguez Sandoval, [facility] is Primary Nurse. jb4 02:42 Triage completed. jb4 02:42 Arm band placed on right wrist. jb4 02:49 Inserted saline lock: 20 gauge in right antecubital area, using aseptic technique. rv1 Blood collected. 02:49 CBC with Diff Sent. rv1 02:49 CMP Sent. rv1 02:49 Lipase Sent. rv1 02:49 Urinalysis w/ reflexes Sent. rv1 04:40 CT Abd/Pelvis - IV Contrast Only In Process Unspecified. EDMS 05:35 Raymundo Clinton MD is Referral Physician. ms3 05:48 Patient has correct armband on for positive identification. Bed in low position. Call jb4 light in reach. Side rails up X 1. Client placed on continuous cardiac and pulse oximetry monitoring. NIBP monitoring applied. 05:48 No provider procedures requiring assistance completed. IV discontinued, intact, jb4 bleeding controlled, No redness/swelling at site. Pressure dressing applied. Administered Medications: 03:01 Drug: Ondansetron IVP 4 mg Route: IVP; Site: right antecubital; jb4 03:01 Drug: morphine IVP or IV 4 mg Route: IVP; Infused Over: 4 mins; Site: right antecubital;jb4 05:46 Drug: Amoxicillin-Clavulanate PO 875 mg Route: PO; jb4 Outcome: 05:35 Discharge ordered by . ms3 05:48 Discharged to home ambulatory, with family. jb4 05:48 Condition: stable 05:48 Discharge instructions given to patient, family, Instructed on discharge instructions, follow up and referral plans. medication usage, Demonstrated understanding of instructions, follow-up care, medications, Prescriptions given X 1. 05:49 Patient left the ED. jb4 Signatures: Dispatcher [employer] EDMS Rodríguez Sandoval, [facility] RN jb4 Ousmane Newell DO DO ms3 Madisyn Alonso Cristina Corona rv1
--- NOTE | 2023-03-31 05:36 | EDPHYS ---
Physician Documentation [facility] Name: Ginger Marquez Age: 67 yrs Sex: Female : 1955 Arrival Date: 03/31/2023 Time: 02:21 Bed 6 Private MD: ED Physician Ousmane Newell HPI: 03/31 02:40 This 67 yrs old Female presents to ER via Unassigned with complaints of ms3 abdominal pain. 02:40 67-year-old female with past medical history of hypertension hypothyroidism presents ms3 for abdominal pain. Patient states she developed dysuria on and generalized abdominal pain on Friday. Patient had a virtual visit yesterday and was prescribed Macrobid which she has taken. Patient states her pain is currently an 8/10 located generally throughout the abdomen. Patient denies alleviating or inciting factors. Patient endorses chills. Patient denies nausea, vomiting, diarrhea.. Historical: - Allergies: 02:42 Bactrim; jb4 02:42 Levaquin; jb4 - PMHx: 02:42 Depression; Diverticulitis; Hypertension; Hypothyroidism; jb4 - PSHx: 02:42 Left knee replacement; jb4 - Immunization history:: Adult Immunizations up to date, Pneumococcal vaccine is not up to date, Flu vaccine is not up to date. - Social history:: Smoking status: Patient denies any tobacco usage or history of. ROS: 02:40 Eyes: Negative for injury, pain, redness, and discharge, Neck: Negative for injury, ms3 pain, and swelling, Cardiovascular: Negative for chest pain, and palpitations. Respiratory: Negative for shortness of breath, cough, wheezing, and pleuritic chest pain, MS/Extremity: Negative for injury and deformity. 02:40 Constitutional: Positive for chills. 02:40 Abdomen/GI: Positive for abdominal pain. 02:40 All other systems are negative. Exam: 02:40 Constitutional: This is a well developed, well nourished patient who is awake, alert, ms3 and in no acute distress. Head/Face: Normocephalic, atraumatic. Neck: Trachea midline, no cervical lymphadenopathy. Supple, full range of motion without nuchal rigidity, or vertebral point tenderness. No Meningismus. Chest/axilla: Normal chest wall appearance and motion. Nontender with no deformity. Cardiovascular: Regular rate and rhythm with a normal S1 and S2. No gallops, murmurs, or rubs. Normal PMI, no JVD. No pulse deficits. Respiratory: Lungs have equal breath sounds bilaterally, clear to auscultation and percussion. No rales, rhonchi or wheezes noted. No increased work of breathing, no retractions or nasal flaring. 02:40 Skin: Warm, dry with normal turgor. Normal color with no rashes, no lesions, and no evidence of cellulitis. MS/ Extremity: Pulses equal, no cyanosis. Neurovascular intact. Full, normal range of motion. 02:40 Abdomen/GI: Inspection: abdomen appears normal, Bowel sounds: normal, Palpation: moderate abdominal tenderness, in all quadrants. Vital Signs: 02:39 BP 183 / 66; Pulse 83; Resp 16; Temp 98.1(O); Pulse Ox 98% on R/A; Weight 102.51 kg; jb4 Height 5 ft. 3 in. ; 03:30 BP 124 / 42; Pulse 70; Resp 16; Pulse Ox 93% on R/A; jb4 05:01 BP 150 / 50; Pulse 66; Resp 16; Pulse Ox 95% on R/A; jb4 02:39 Body Mass Index 40.03 (102.51 kg, 160.02 cm) jb4 MDM: 02:38 Patient medically screened. ms3 02:40 Differential diagnosis: bowel obstruction, diverticulitis, gastritis, urinary tract ms3 infection. 05:41 Data reviewed: vital signs, nurses notes, lab test result(s), radiologic studies, and ms3 as a result, I will discharge patient. I considered the following discharge prescriptions or medication management in the emergency department Medications were administered in the Emergency Department. See MAR. Historians other than the Patient: Spouse/Significant Other: Patient's . Care significantly affected by the following chronic conditions: Hypertension. Counseling: I had a detailed discussion with the patient and/or guardian regarding: the historical points, exam findings, and any diagnostic results supporting the discharge/admit diagnosis, lab results, radiology results, the need for outpatient follow up, to return to the emergency department if symptoms worsen or persist or if there are any questions or concerns that arise at home. Response to treatment: the patient's symptoms have markedly improved after treatment, and as a result, I will discharge patient. Special discussion: I discussed with the patient/guardian in detail that at this point there is no indication for admission to the hospital. It is understood, however, that if the symptoms persist or worsen the patient needs to return immediately for re-evaluation. 03/31 02:40 Order name: CBC with Diff; Complete Time: 05:30 ms3 03/31 02:40 Order name: CMP; Complete Time: 04:37 ms3 03/31 02:40 Order name: Lipase; Complete Time: 04:37 ms3 03/31 02:40 Order name: Urinalysis w/ reflexes; Complete Time: 03:33 ms3 03/31 03:57 Order name: Manual Differential; Complete Time: 05:30 EDMS 03/31 02:40 Order name: CT Abd/Pelvis - IV Contrast Only ms3 03/31 02:40 Order name: IV Saline Lock; Complete Time: 02:49 ms3 03/31 02:40 Order name: Labs collected and sent; Complete Time: 02:49 ms3 Administered Medications: 03:01 Drug: Ondansetron IVP 4 mg Route: IVP; Site: right antecubital; jb4 03:01 Drug: morphine IVP or IV 4 mg Route: IVP; Infused Over: 4 mins; Site: right antecubital;jb4 05:46 Drug: Amoxicillin-Clavulanate PO 875 mg Route: PO; jb4 Disposition Summary: 03/31/23 05:35 Discharge Ordered Location: Home ms3 Condition: Stable ms3 Diagnosis - Diverticulitis of large intestine without perforation or abscess without bleeding ms3 - Abdominal pain, unspecified ms3 - Essential (primary) hypertension ms3 Followup: ms3 - With: Raymundo Clinton MD - When: 2 - 3 days - Reason: Recheck today's complaints Discharge Instructions: - Discharge Summary Sheet ms3 - Abdominal Pain, Adult ms3 - Diverticulitis ms3 Forms: - Medication Reconciliation Form ms3 - Thank You Letter ms3 - Antibiotic Education ms3 - Prescription Opioid Use ms3 Prescriptions: - Augmentin 875-125 mg Oral Tablet - take 1 tablet by ORAL route every 12 hours for 10 days; 20 tablet; Refills: 0, ms3 Product Selection Permitted Signatures: Dispatcher [employer] Rodríguez Mcknight RN RN jb4 Ousmane Newell DO DO ms3
[2023-03-31] MEDS ORDERED: AMOX/K CLAV 875 MG TAB ONE (05:47)
[2023-03-31 06:07] VITALS: TEMP 98.1
[2023-03-31 06:14] VITALS: BP 150/50; O2SAT 95
--- NOTE | 2023-04-01 11:10 | RAD REPORT ---
EXAM DESCRIPTION: CT - Abdomen Pelvis W Contrast - 03/31/2023 6:37 am CLINICAL HISTORY: ABD PAIN TECHNIQUE: Contiguous axial images obtained through the abdomen and pelvis following the uneventful administration of IV contrast. Coronal and sagittal reformatted images were provided. This exam was performed according to our departmental dose-optimization program, which includes autom ated exposure control, adjustment of the mA and/or kV according to patient size and/or use of iterati ve reconstruction technique. COMPARISON: None available for comparison. FINDINGS: Lung bases: Scattered tiny pulmonary nodules in the lung bases the largest measuring appro ximately 3 mm No routine follow-up imaging is recommended per Fleischner Society Guidelines. These guidelines do not apply to immunocompromised patients and patients with cancer. Follow up in pa tients with significant comorbidities as clinically warranted. For lung cancer screening, adhere to L juan [place]-RADS guidelines. Reference: Radiology. 2017; 284(1):228-43. . Liver: Mild diffuse fatty infiltration of the liver. Gallbladder and biliary system: Multiple small gallstones. Pancreas: Unremarkable Spleen: Unremarkable Adrenals: Unremarkable Kidneys: Normal renal cortical enhancement. No calculi. No hydronephrosis. GI: Multiple sigmoid diverticula. Pericolonic inflammatory changes and thickening of the sigmoid colo n consistent with acute sigmoid diverticulitis. No evidence of perforation or organized pericolonic abscess. Appendix: No findings to suggest acute appendicitis. Urinary bladder: Unremarkable Reproductive: Status post hysterectomy. Lymph nodes: No pathologically enlarged lymph nodes. Peritoneum: No focal fluid collection. No free air. Vessels: No abdominal aortic aneurysm. Abdominal wall: Unremarkable Bones: No acute bony pathology. IMPRESSION: 1. Acute sigmoid diverticulitis without evidence of perforation or organized pericolon ic abscess. 2. Mild diffuse fatty infiltration of the liver. 3. Cholelithiasis. 4. Scattered tiny pulmonary nodules in the lung bases the largest measuring approximately 3 mm. See recommendations above. Electronically signed by: Ludwin Elder MD 03/31/2023 5:10 AM CDT Due to temporary technical issues with the PACS/Fluency reporting system, reports are being signed by the in house radiologists without review as a courtesy to insure prompt reporting. The interpreting radiologist is fully responsible for the content of the report.
== END 2023-03-31 05:49 | disposition home or self-care (01) ==
LOC: ER 02:21
DX: K57.32 Diverticulitis of large intestine without perforation or abscess without bleeding (principal); I10 Essential (primary) hypertension; Z88.1 Allergy status to other antibiotic agents
CPT/HCPCS: 85025; 81001; 36415; 83690; 80053; 74177; Q9967; J2405

== ENCOUNTER 2023-05-06 18:10 | Emergency (ER) | payer OTHER ==
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
[2023-05-06] MEDS ORDERED: MORPHINE 4 MG/ML SYR ONE (18:38)
[2023-05-06] MEDS ORDERED: DIAZEPAM 10 MG/2 ML INJ SYRINGE ONE (18:39)
[2023-05-06] MEDS ORDERED: NA CHLORIDE 0.9% 1,000 ML ONE (18:40)
[2023-05-06] MEDS ORDERED: KETOROLAC 30 MG/ML INJ ONE (18:40)
[2023-05-06] MEDS ORDERED: FAMOTIDINE 20 MG/2 ML VIAL IV ONE (18:40)
[2023-05-06 19:02] LABS: Absolute Lymphocytes (CBC) 2.1 K/uL (0.7-4.9); Hematocrit 37.6 % (36.0-45.0); Lymphocytes % 15.7 % (15.3-44.8); MCV 90.7 fL (80-100); MPV 8.9 fL (7.6-11.3); RBC Red Blood Cell Count 4.14 M/uL (3.86-4.86)
[2023-05-06 19:18] LABS: Albumin 3.3 g/dL (3.4-5.0); Bilirubin Total 0.5 mg/dL (0.2-1.0); Potassium 3.6 mEq/L (3.5-5.1); Protein, Total 7.6 g/dL (6.4-8.2)
--- NOTE | 2023-05-06 20:21 | RAD REPORT ---
EXAM DESCRIPTION: CT - Abdomen Pelvis W Contrast - 05/06/2023 8:03 pm CLINICAL HISTORY: Abdominal pain COMPARISON: March 2023 TECHNIQUE: Computed axial tomography of the abdomen pelvis was obtained. 100 cc Isovue-300 was admin istered intravenously. Oral contrast was not requested which limits evaluation of bowel and appendix All CT scans are performed using dose optimization technique as appropriate and may include automated exposure control or mA/KV adjustment according to patient size. FINDINGS: Mild fatty liver. Multiple gallstones. Gallbladder wall not thickened. Spleen, pancreas, adrenals and kidneys unremarkable Hysterectomy. No adnexal mass. Diverticula stem from the colon without visualization diverticulitis. No evidence of appendicitis IMPRESSION: Resolution of sigmoid diverticulitis Cholelithiasis
[2023-05-06] MEDS ORDERED: CEFTRIAXONE 1000 MG/VIAL ONE (21:35)
[2023-05-06 22:03] LABS: Urine Bacteria None Seen /HPF (<20); Urine Bilirubin NEGATIVE (Negative); Urine Blood Trace (Negative); Urine Clarity Clear (Clear); Urine Color Light-Yellow (Yellow); Urine Glucose NEGATIVE (Negative); Urine Mucus Slight /HPF (None Seen); Urine Protein TRACE (Negative); Urine RBC <5 /HPF (None Seen); Urine Urobilinogen Normal (Normal)
[2023-05-06 22:05] LABS: Specific Gravity > 1.030 (1.005-1.030)
--- NOTE | 2023-05-06 22:13 | EDPHYS ---
Physician Documentation [facility] Name: Ginger Marquez Age: 67 yrs Sex: Female : 1955 Arrival Date: 05/06/2023 Time: 18:10 Bed 8 Private MD: ED Physician Samir Guadarrama HPI: 05/06 18:35 This 67 yrs old Female presents to ER via EMS with complaints of Hip Pain. snw 18:35 sustained from unknown reason, The patient is able to bear partial body weight. The snw complaints affect the left leg. Onset: The symptoms/episode began/occurred acutely, and became worse today. Associated signs and symptoms: Pertinent positives: abdominal pain. Severity of symptoms: At their worst the symptoms were moderate, severe. The patient has experienced similar episodes in the past. sees Dr. Abel. Historical: - Allergies: 18:21 Bactrim; aa5 18:21 Levaquin; aa5 - PMHx: 18:21 Depression; Diverticulitis; Hypertension; Hypothyroidism; "nerve pain"; aa5 - PSHx: 18:21 Left knee replacement; aa5 - Immunization history:: Adult Immunizations up to date. - Social history:: Smoking status: Patient denies any tobacco usage or history of. ROS: 18:36 Constitutional: Negative for fever, chills, and weight loss, Eyes: Negative for injury, snw pain, redness, and discharge, ENT: Negative for injury, pain, and discharge, Neck: Negative for injury, pain, and swelling, Cardiovascular: Negative for chest pain, palpitations, and edema, Respiratory: Negative for shortness of breath, cough, wheezing, and pleuritic chest pain, Back: Negative for injury and pain, : Negative for injury, bleeding, discharge, and swelling, Skin: Negative for injury, rash, and discoloration, Neuro: Negative for headache, weakness, numbness, tingling, and seizure, Psych: Negative for depression, anxiety, suicide ideation, homicidal ideation, and hallucinations. 18:36 Abdomen/GI: Positive for abdominal pain, of the left lower quadrant. 18:36 MS/extremity: Positive for decreased range of motion, pain, of the left leg. Exam: 18:34 Head/Face: Normocephalic, atraumatic. Eyes: Pupils equal round and reactive to light, snw extra-ocular motions intact. Lids and lashes normal. Conjunctiva and sclera are non-icteric and not injected. Cornea within normal limits. Periorbital areas with no swelling, redness, or edema. ENT: Nares patent. No nasal discharge, no septal abnormalities noted. Tympanic membranes are normal and external auditory canals are clear. Oropharynx with no redness, swelling, or masses, exudates, or evidence of obstruction, uvula midline. Mucous membranes moist. Neck: Trachea midline, no thyromegaly or masses palpated, and no cervical lymphadenopathy. Supple, full range of motion without nuchal rigidity, or vertebral point tenderness. No Meningismus. Chest/axilla: Normal chest wall appearance and motion. Nontender with no deformity. No lesions are appreciated. Cardiovascular: Regular rate and rhythm with a normal S1 and S2. No gallops, murmurs, or rubs. Normal PMI, no JVD. No pulse deficits. Respiratory: Lungs have equal breath sounds bilaterally, clear to auscultation and percussion. No rales, rhonchi or wheezes noted. No increased work of breathing, no retractions or nasal flaring. Abdomen/GI: Soft, non-tender exept to left lower quad, with normal bowel sounds. No distension or tympany. mild guarding to left lower abd Back: No spinal tenderness. No costovertebral tenderness. Full range of motion. Skin: Warm, dry with normal turgor. Normal color with no rashes, no lesions, and no evidence of cellulitis. 18:34 Constitutional: The patient appears alert, awake, anxious, obese, uncomfortable. 18:34 Musculoskeletal/extremity: Extremities: grossly normal except: noted in the left inner thigh and medial aspect of left thigh: tenderness, Circulation is intact in all extremities. Sensation intact. Vital Signs: 18:19 BP 155 / 51; Pulse 74; Resp 20 S; Temp 99.1(O); Pulse Ox 98% on R/A; aa5 18:30 BP 142 / 52; Pulse 64; Resp 20 S; Pulse Ox 98% on R/A; aa5 19:00 BP 134 / 44; Pulse 62; Resp 18 S; Pulse Ox 96% on R/A; aa5 19:56 BP 137 / 47; Pulse 64; Resp 18 S; Pulse Ox 98% on R/A; lg3 21:37 BP 137 / 68; Pulse 65; Resp 17 S; Pulse Ox 97% on R/A; lg3 MDM: 18:13 Patient medically screened. snw 18:25 ED course: sees Dr. Abel. snw 18:37 Differential diagnosis: bursitis, arthritis, strain, diverticulitis. snw 18:38 Data reviewed: vital signs, nurses notes, lab test result(s), radiologic studies. snw 05/06 18:24 Order name: CBC with Diff; Complete Time: 19:06 snw 05/06 18:24 Order name: CMP; Complete Time: 19:28 snw 05/06 18:24 Order name: Lipase; Complete Time: 19:28 snw 05/06 18:24 Order name: Urinalysis w/ reflexes; Complete Time: 22:11 snw 05/06 18:24 Order name: CT Abd/Pelvis - IV Contrast Only; Complete Time: 20:24 snw 05/06 18:24 Order name: IV Saline Lock; Complete Time: 18:54 snw 05/06 18:24 Order name: Labs collected and sent; Complete Time: 18:54 snw Administered Medications: 18:30 Drug: NS 0.9% IV 1000 ml Route: IV; Rate: 75 ml/hr; Site: left forearm; aa5 18:33 Drug: Diazepam IVP 2 mg Route: IVP; Site: left forearm; aa5 21:36 Follow up: Response: No adverse reaction; RASS: Alert and Calm (0) lg3 18:35 Drug: Famotidine IVP 20 mg Route: IVP; Site: left forearm; aa5 21:36 Follow up: Response: No adverse reaction lg3 18:35 Drug: TORadol - Ketorolac IVP 15 mg Route: IVP; Site: left forearm; aa5 21:36 Follow up: Response: No adverse reaction lg3 18:37 Drug: morphine IVP or IV 4 mg Route: IVP; Infused Over: 4 mins; Site: left forearm; aa5 21:36 Follow up: Response: No adverse reaction lg3 21:36 Drug: Rocephin IV 1 grams Route: IV; Rate: calculated rate; Site: left forearm; lg3 22:27 Follow up: Response: No adverse reaction; IV Status: Completed infusion; IV Intake: [id number] Disposition Summary: 05/06/23 22:12 Discharge Ordered Location: Home snw Condition: Stable snw Diagnosis - Lumbago with sciatica, left side snw - Dental caries, unspecified snw - Other cholelithiasis without obstruction snw - Diverticulosis of intestine, part unspecified, without perforation or abscess snw without bleeding Followup: snw - With: Emergency Department - When: As needed - Reason: Worsening of condition Followup: snw - With: Private Physician - When: 2 - 3 days - Reason: Recheck today's complaints, Continuance of care, Re-evaluation by your physician Discharge Instructions: - Discharge Summary Sheet snw - Dental Abscess snw - Diverticulitis snw - Sciatica snw - Cholelithiasis snw Forms: - Medication Reconciliation Form snw - Thank You Letter snw - Antibiotic Education snw - Prescription Opioid Use snw - Patient Portal Instructions snw Prescriptions: - acetaminophen-codeine 300-30 mg Oral tablet - take 1 tablet by ORAL route 3 times per day as needed for pain; 12 tablet; snw Refills: 0, Product Selection Permitted - Augmentin 875-125 mg Oral Tablet - take 1 tablet by ORAL route every 12 hours for 10 days; 20 tablet; Refills: 0, snw Product Selection Permitted - Neurontin 300 mg Oral Capsule - take 1 capsule by ORAL route At bedtime; 20 capsule; Refills: 0, Product snw Selection Permitted Signatures: Dispatcher [employer] EDJanice Schumacher FNP-C COLLAR SEPARATOR-Csnw Lori Gale, RN RN aa5 Trupti Hernandez RN RN lg3 Jose Molina RN RN as6 Corrections: (The following items were deleted from the chart) 18:38 18:37 Data reviewed: snw snw
--- NOTE | 2023-05-06 22:13 | ER ---
Nurse's Notes [facility] Name: Ginger Marquez Age: 67 yrs Sex: Female : 1955 Arrival Date: 05/06/2023 Time: 18:10 Bed 8 Private MD: Diagnosis: Lumbago with sciatica, left side;Dental caries, unspecified;Other cholelithiasis without obstruction;Diverticulosis of intestine, part unspecified, without perforation or abscess without bleeding Presentation: 05/06 18:19 Chief complaint: EMS states: sharp shooting pain to left hip down left leg that began aa5 while vacuuming. Pt reports she has been taking cyclobenzaprine for "nerve pain" to left hip but today was worse. Coronavirus screen: At this time, the client does not indicate any symptoms associated with coronavirus-19. Ebola Screen: Patient denies travel to an Ebola-affected area in the 21 days before illness onset. Initial Sepsis Screen: Does the patient meet any 2 criteria? No. Patient's initial sepsis screen is negative. Does the patient have a suspected source of infection? No. Patient's initial sepsis screen is negative. Risk Assessment: Do you want to hurt yourself or someone else? Patient reports no desire to harm self or others. Onset of symptoms was May 06, 2023. Care prior to arrival: IV initiated. 20 GA, in the left forearm. 18:19 Acuity: [place] 3 aa5 18:19 Method Of Arrival: EMS: [facility] aa5 Historical: - Allergies: 18:21 Bactrim; aa5 18:21 Levaquin; aa5 - PMHx: 18:21 Depression; Diverticulitis; Hypertension; Hypothyroidism; "nerve pain"; aa5 - PSHx: 18:21 Left knee replacement; aa5 - Immunization history:: Adult Immunizations up to date. - Social history:: Smoking status: Patient denies any tobacco usage or history of. Screenin:23 [facility] ED Fall Risk Assessment (Adult) History of falling in the last 3 months, aa5 including since admission No falls in past 3 months (0 pts) Confusion or Disorientation No (0 pts) Intoxicated or Sedated No (0 pts) Impaired Gait No (0 pts) Mobility Assist Device Used No (0 pt) Altered Elimination No (0 pt) Score/Fall Risk Level 0 - 2 = Low Risk Oriented to surroundings, Maintained a safe environment, Educated pt \\T\\ family on fall prevention, incl call for assistance when getting out of bed. Abuse screen: Denies threats or abuse. Nutritional screening: No deficits noted. Tuberculosis screening: No symptoms or risk factors identified. Assessment: 18:20 General: Appears uncomfortable, Behavior is calm, cooperative. Pain: Complains of pain aa5 in left hip Pain radiates to left leg Quality of pain is described as crampy, sharp, shooting, Pain began today while vacuuming. Neuro: Level of Consciousness is awake, alert, obeys commands, Oriented to person, place, time, situation. Cardiovascular: Patient's skin is warm and dry. Respiratory: Airway is patent Respiratory effort is even, unlabored, Respiratory pattern is regular, symmetrical. GI: Abdomen is round Abd is soft and non tender X 4 quads. Patient currently denies nausea, vomiting. : No signs and/or symptoms were reported regarding the genitourinary system. EENT: No signs and/or symptoms were reported regarding the EENT system. Derm: Skin is pink, warm \\T\\ dry. Musculoskeletal: Reports pain in left hip. Injury Description: Denies fall. 18:30 Reassessment: Patient is alert, oriented x 3, equal unlabored respirations, skin aa5 warm/dry/pink. 19:56 General: Appears in no apparent distress. uncomfortable, Behavior is cooperative, lg3 fussy, restless. Pain: Complains of pain in left hip Pain radiates to left leg Noted to be grimacing, guarding, moaning, resistant to movement, restless. Neuro: No deficits noted. Watson Agitation-Sedation Scale (RASS): +1 Restless Level of Consciousness is awake, alert, obeys commands, Oriented to person, place, time, situation. Cardiovascular: No deficits noted. Denies chest pain, shortness of breath, Capillary refill < 3 seconds Clubbing of nail beds is absent JVD is absent Patient's skin is warm and dry. Respiratory: No deficits noted. Airway is patent Respiratory effort is even, unlabored, Respiratory pattern is regular, symmetrical. GI: No deficits noted. No signs and/or symptoms were reported involving the gastrointestinal system. Abdomen is round non-distended, obese. : No deficits noted. No signs and/or symptoms were reported regarding the genitourinary system. EENT: No deficits noted. No signs and/or symptoms were reported regarding the EENT system. Derm: No deficits noted. No signs and/or symptoms reported regarding the dermatologic system. Skin is intact, is healthy with good turgor, Skin is dry, Skin is normal, Skin temperature is warm. Musculoskeletal: Circulation, motion, and sensation intact. Range of motion: intact in all extremities, Reports pain in left hip. 21:37 Reassessment: Patient appears in no apparent distress at this time. No changes from lg3 previously documented assessment. Patient and/or family updated on plan of care and expected duration. Pain level reassessed. Patient is alert, oriented x 3, equal unlabored respirations, skin warm/dry/pink. Vital Signs: 18:19 BP 155 / 51; Pulse 74; Resp 20 S; Temp 99.1(O); Pulse Ox 98% on R/A; aa5 18:30 BP 142 / 52; Pulse 64; Resp 20 S; Pulse Ox 98% on R/A; aa5 19:00 BP 134 / 44; Pulse 62; Resp 18 S; Pulse Ox 96% on R/A; aa5 19:56 BP 137 / 47; Pulse 64; Resp 18 S; Pulse Ox 98% on R/A; lg3 21:37 BP 137 / 68; Pulse 65; Resp 17 S; Pulse Ox 97% on R/A; lg3 ED Course: 18:11 Patient arrived in ED. aa5 18:12 [facility] snw 18:12 Samir Guadarrama MD is Attending Physician. snw 18:15 Maintain EMS IV. Dressing intact. Site clean \\T\\ dry. Gauge \\T\\ site: 20G to L FA. aa 5 18:18 Lori Gale, [facility] is Primary Nurse. aa5 18:19 Arm band placed on. aa5 18:19 Patient has correct armband on for positive identification. Bed in low position. Call aa5 light in reach. Side rails up X2. 18:20 Triage completed. aa5 18:30 Initial lab(s) drawn, by me, sent to lab. aa5 19:00 Report given to [facility] Garcia and [facility] Lyles. aa5 19:26 Radiology exam delayed due to pt requesting pain meds and to use the restroom prior to ls3 CT. 20:05 CT Abd/Pelvis - IV Contrast Only In Process Unspecified. EDMS 21:36 Urinalysis w/ reflexes Sent. lg3 22:47 No provider procedures requiring assistance completed. IV discontinued, intact, as6 bleeding controlled, No redness/swelling at site. Pressure dressing applied. 22:48 Provided Education on: discharge teaching. as6 Administered Medications: 18:30 Drug: NS 0.9% IV 1000 ml Route: IV; Rate: 75 ml/hr; Site: left forearm; aa5 18:33 Drug: Diazepam IVP 2 mg Route: IVP; Site: left forearm; aa5 21:36 Follow up: Response: No adverse reaction; RASS: Alert and Calm (0) lg3 18:35 Drug: Famotidine IVP 20 mg Route: IVP; Site: left forearm; aa5 21:36 Follow up: Response: No adverse reaction lg3 18:35 Drug: TORadol - Ketorolac IVP 15 mg Route: IVP; Site: left forearm; aa5 21:36 Follow up: Response: No adverse reaction lg3 18:37 Drug: morphine IVP or IV 4 mg Route: IVP; Infused Over: 4 mins; Site: left forearm; aa5 21:36 Follow up: Response: No adverse reaction lg3 21:36 Drug: Rocephin IV 1 grams Route: IV; Rate: calculated rate; Site: left forearm; lg3 22:27 Follow up: Response: No adverse reaction; IV Status: Completed infusion; IV Intake: [id number] Medication: 22:48 VIS not applicable for this client. as6 Intake: 22:27 IV: 10ml; Total: 10ml. lg3 Outcome: 22:12 Discharge ordered by MD. sahni 22:48 Discharged to home via wheelchair, with significant other. as6 22:48 Condition: stable 22:48 Discharge instructions given to patient, Instructed on discharge instructions, follow up and referral plans. medication usage, Demonstrated understanding of instructions, follow-up care, medications, Prescriptions given X 3. 22:48 Patient left the ED. as6 Signatures: Dispatcher [employer] EDMS Janice Lua, JUSTINO-C CHILD CARE NURSE-Regiw Lori Gale, [facility] RN aa5 China Andres ls3 Trupti Hernandez, RN RN lg3 Jose Molina, RN RN as6
[2023-05-06 22:59] VITALS: TEMP 99.1
[2023-05-06 23:04] VITALS: BP 137/68; O2SAT 97
== END 2023-05-06 22:48 | disposition home or self-care (01) ==
LOC: ER 18:10
DX: M54.42 Lumbago with sciatica, left side (principal); K02.9 Dental caries, unspecified; K80.80 Other cholelithiasis without obstruction; K57.30 Diverticulosis of large intestine without perforation or abscess without bleeding; Z88.1 Allergy status to other antibiotic agents
CPT/HCPCS: 85025; 81001; 36415; 83690; 80053; 74177; Q9967; J3360; J7030; J0696

== ENCOUNTER 2023-05-07 20:02 | Inpatient (IN) | payer OTHER ==
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
[2023-05-07] MEDS ORDERED: ONDANSETRON 4 MG/2 ML VIAL ONE (20:26)
[2023-05-07] MEDS ORDERED: NA CHLORIDE 0.9% 1,000 ML ONE (20:26)
[2023-05-07] MEDS ORDERED: MORPHINE 4 MG/ML SYR ONE ×2 (20:26→21:17)
[2023-05-07 20:45] LABS: Hematocrit 35.3 % (36.0-45.0); Lymphocytes % 18.8 % (15.3-44.8); MCV 90.6 fL (80-100); MPV 8.7 fL (7.6-11.3); RBC Red Blood Cell Count 3.89 M/uL (3.86-4.86)
[2023-05-07 20:58] LABS: Albumin 3.1 g/dL (3.4-5.0); Bilirubin Total 0.4 mg/dL (0.2-1.0); Potassium 3.4 mEq/L (3.5-5.1); Protein, Total 7.5 g/dL (6.4-8.2)
--- NOTE | 2023-05-07 21:05 | RAD REPORT ---
EXAM DESCRIPTION: CTAbdomen Pelvis W Contrast - 05/07/2023 8:56 pm CLINICAL HISTORY: Abdominal pain. ABD PAIN COMPARISON: Abdomen Pelvis W Contrast dated 05/06/2023; Abdomen Pelvis W Contrast dated 03/31/2023; Abdomen Pelvis W Contrast dated 10/06/2018; CT ABD PELVIS W CONTRAST dated 10/27/2012 TECHNIQUE: Biphasic CT imaging of the abdomen and pelvis was performed with 100 ml non-ionic IV cont rast. All CT scans are performed using dose optimization technique as appropriate and may include automated exposure control or mA/KV adjustment according to patient size. FINDINGS: The lung bases are clear. The liver is diffusely fatty. Spleen, pancreas, adrenal glands and kidneys are within normal limits. Cholelithiasis. No bowel obstruction, free air, free fluid or abscess. Moderate stool is present throughout the colon . The appendix is not identified as a discrete structure, however, no secondary findings of appendici tis are identified. No evidence of significant lymphadenopathy. No suspicious bony findings. IMPRESSION: No acute intra-abdominal or pelvic finding. Cholelithiasis.
[2023-05-07 21:46] LABS: Specific Gravity > 1.030 (1.005-1.030); Urine Bilirubin NEGATIVE (Negative); Urine Blood Negative (Negative); Urine Clarity Clear (Clear); Urine Color Light-Yellow (Yellow); Urine Glucose NEGATIVE (Negative); Urine Protein NEGATIVE (Negative); Urine Urobilinogen Normal (Normal)
--- NOTE | 2023-05-07 22:16 | ER ---
Nurse's Notes [facility] Name: Ginger Marquez Age: 67 yrs Sex: Female : 1955 Arrival Date: 05/07/2023 Time: 20:02 Bed 4 Private MD: Diagnosis: Intractable back, abdominal pain Presentation: 05/07 20:04 Chief complaint: EMS states: Toned out for abdominal pain, states got discharged ll3 yesterday from the ER with diverticulitis, gallstones, and sciatica. Coronavirus screen: Vaccine status: Patient reports being unvaccinated. At this time, the client does not indicate any symptoms associated with coronavirus-19. Ebola Screen: No symptoms or risks identified at this time. Initial Sepsis Screen: Does the patient meet any 2 criteria? No. Patient's initial sepsis screen is negative. Does the patient have a suspected source of infection? No. Patient's initial sepsis screen is negative. Risk Assessment: Do you want to hurt yourself or someone else? Patient reports no desire to harm self or others. Onset of symptoms was May 07, 2023. Care prior to arrival: IV initiated. 20 GA, in the left wrist. 20:04 Method Of Arrival: EMS: [facility] ll3 20:04 Acuity: [place] 3 ll3 Triage Assessment: 20:08 General: Appears uncomfortable, Behavior is cooperative, anxious. Pain: Complains of ll3 pain in left lower quadrant Pain radiates to back Pain currently is 10 out of 10 on a pain scale. Pain began States got worse today Is continuous. GI: Abdomen is round non-distended, Reports lower abdominal pain, Patient currently denies constipation, diarrhea, nausea, vomiting. Derm: Skin is pink, warm \\T\\ dry. Historical: - Allergies: 20:08 Bactrim; ll3 20:08 Levaquin; ll3 - PMHx: 20:08 "Nerve pain"; Depression; Diverticulitis; Hypertension; Hypothyroidism; ll3 - PSHx: 20:08 Left knee replacement; ll3 - Immunization history:: Client reports having NOT received the Covid vaccine. - Social history:: Smoking status: Patient denies any tobacco usage or history of. Screenin:10 Abuse screen: Denies threats or abuse. Denies injuries from another. Nutritional ll3 screening: No deficits noted. Tuberculosis screening: No symptoms or risk factors identified. 22:55 [facility] ED Fall Risk Assessment (Adult) History of falling in the last 3 months, kd3 including since admission No falls in past 3 months (0 pts) Confusion or Disorientation No (0 pts) Intoxicated or Sedated No (0 pts) Impaired Gait No (0 pts) Mobility Assist Device Used No (0 pt) Altered Elimination No (0 pt) Score/Fall Risk Level 0 - 2 = Low Risk Maintained a safe environment. Assessment: 20:08 General: See triage assessment. ll3 21:50 General: Appears uncomfortable, Behavior is cooperative, anxious. Pain: Complains of kd3 pain in abdomen. Neuro: Level of Consciousness is awake, alert, obeys commands, Oriented to person, place, time, situation. 22:54 GI: Bowel sounds present X 4 quads. Abdomen is tender to palpation in left lower kd3 quadrant. Vital Signs: 20:04 BP 166 / 66; Pulse 66; Resp 18; Temp 98.2(O); Pulse Ox 99% on R/A; Weight 99.79 kg (R); ll3 Height 5 ft. 3 in. (R); Pain 10/10; 21:12 BP 156 / 62; Pulse 68; Resp 20; Pulse Ox 100% on R/A; kd3 22:06 BP 138 / 70; Pulse 68; Resp 19; Pulse Ox 93% on R/A; kd3 22:42 BP 141 / 50; Pulse 66; Resp 19; Pulse Ox 95% on R/A; kd3 20:04 Body Mass Index 38.97 (99.79 kg, 160.02 cm) ll3 20:04 Pain Scale: Adult ll3 ED Course: 20:03 Patient arrived in ED. jj6 20:03 Nahum Hunt MD is Attending Physician. rt 20:08 Triage completed. ll3 20:08 Arm band placed on Patient placed in an exam room, on a stretcher, on pulse oximetry. ll3 20:10 Patient has correct armband on for positive identification. Bed in low position. Call ll3 light in reach. Side rails up X 1. 20:13 Britt Ray RN is Primary Nurse. kd3 20:30 Maintain EMS IV. Dressing intact. Good blood return noted. Site clean \\T\\ dry. Gauge \\T\\ ll 3 site: 20 L wrist. 20:58 CT Abd/Pelvis - IV Contrast Only In Process Unspecified. EDMS 22:14 Zaheer Abel MD is Hospitalizing Provider. rt 22:54 No provider procedures requiring assistance completed. Patient admitted, IV remains in kd3 place. 22:55 Provided Education on: . kd3 Administered Medications: 20:29 Drug: NS 0.9% IV 1000 ml Route: IV; Rate: 1 bolus; Site: left wrist; ll3 22:00 Follow up: Response: No adverse reaction; IV Status: Completed infusion; IV Intake: ll3 1000ml 20:29 Drug: Ondansetron IVP 4 mg Route: IVP; Site: left wrist; ll3 21:50 Follow up: Response: No adverse reaction; Nausea is decreased kd3 20:29 Drug: morphine IVP or IV 4 mg Route: IVP; Infused Over: 4 mins; Site: left wrist; ll3 21:50 Follow up: Response: No adverse reaction; Pain is unchanged, physician notified kd3 21:11 Drug: morphine IVP or IV 4 mg Route: IVP; Infused Over: 4 mins; Site: left forearm; kd3 23:01 Drug: MethylPrednisoLONE IVP 40 mg Route: IVP; Site: left wrist; ll3 Medication: 22:55 VIS not applicable for this client. kd3 Intake: 22:00 IV: 1000ml; Total: 1000ml. ll3 Outcome: 22:15 Decision to Hospitalize by Provider. rt 22:54 Admitted to Med/surg kd3 22:54 Condition: stable 22:54 Discharge instructions given to patient, Instructed on the need for admit, Demonstrated understanding of instructions. 23:32 Patient left the ED. kd3 Signatures: Dispatcher [employer] EDMS Jannette Gonzalez jj6 Rachana Palm RN RN ll3 Britt Ray RN RN kd3 Nahum Hunt MD MD rt Corrections: (The following items were deleted from the chart) 20:30 20:04 Care prior to arrival: IV initiated. 20 GA, in the left hand, ll3 ll3
--- NOTE | 2023-05-07 22:16 | EDPHYS ---
Physician Documentation [facility] Name: Ginger Marquez Age: 67 yrs Sex: Female : 1955 Arrival Date: 05/07/2023 Time: 20:02 Bed 4 Private MD: [place] Physician Nahum Hunt HPI: 05/08 01:10 This 67 yrs old Female presents to ER via EMS with complaints of Abdominal rt Pain. 01:10 Patient presents to the ED with abdominal pain to the left lower quadrant radiating to rt the back. Patient was seen in the ED yesterday, was diagnosed with cholelithiasis as well as sciatic type pain. Patient states that the symptoms have worsened, currently severe in severity, aching nature today. Patient was sent to the department from primary care for further evaluation. Denies other acute complaints at this time.. Historical: - Allergies: 05/07 20:08 Bactrim; ll3 20:08 Levaquin; ll3 - PMHx: 20:08 "Nerve pain"; Depression; Diverticulitis; Hypertension; Hypothyroidism; ll3 - PSHx: 20:08 Left knee replacement; ll3 - Immunization history:: Client reports having NOT received the Covid vaccine. - Social history:: Smoking status: Patient denies any tobacco usage or history of. ROS: 05/08 01:10 Constitutional: Negative for fever, chills, and weight loss, Cardiovascular: Negative rt for chest pain, palpitations, and edema, Respiratory: Negative for shortness of breath, cough, wheezing, and pleuritic chest pain, Skin: Negative for injury, rash, and discoloration, Neuro: Negative for headache, weakness, numbness, tingling, and seizure, Psych: Negative for depression, anxiety, suicide ideation, homicidal ideation, and hallucinations. Abdomen/GI: Positive for abdominal pain, Negative for nausea and vomiting. Back: Positive for pain at rest, pain with movement. Exam: 01:10 Constitutional: This is a well developed, well nourished patient who is awake, alert, rt and in no acute distress. Head/Face: Normocephalic, atraumatic. Chest/axilla: Normal chest wall appearance and motion. Nontender with no deformity. No lesions are appreciated. Cardiovascular: Regular rate and rhythm with a normal S1 and S2. No gallops, murmurs, or rubs. Normal PMI, no JVD. No pulse deficits. Respiratory: Lungs have equal breath sounds bilaterally, clear to auscultation and percussion. No rales, rhonchi or wheezes noted. No increased work of breathing, no retractions or nasal flaring. Skin: Warm, dry with normal turgor. Normal color with no rashes, no lesions, and no evidence of cellulitis. MS/ Extremity: Pulses equal, no cyanosis. Neurovascular intact. Full, normal range of motion. Neuro: Awake and alert, GCS 15, oriented to person, place, time, and situation. Cranial nerves II-XII grossly intact. Motor strength 5/5 in all extremities. Sensory grossly intact. Cerebellar exam normal. Normal gait. Psych: Awake, alert, with orientation to person, place and time. Behavior, mood, and affect are within normal limits. 01:10 ECG was reviewed by the Attending Physician. 01:10 Abdomen/GI: Tenderness diffusely on the abdomen, mild guarding, no rebound. Vital Signs: 05/07 20:04 BP 166 / 66; Pulse 66; Resp 18; Temp 98.2(O); Pulse Ox 99% on R/A; Weight 99.79 kg (R); ll3 Height 5 ft. 3 in. (R); Pain 10/10; 21:12 BP 156 / 62; Pulse 68; Resp 20; Pulse Ox 100% on R/A; kd3 22:06 BP 138 / 70; Pulse 68; Resp 19; Pulse Ox 93% on R/A; kd3 22:42 BP 141 / 50; Pulse 66; Resp 19; Pulse Ox 95% on R/A; kd3 20:04 Body Mass Index 38.97 (99.79 kg, 160.02 cm) ll3 20:04 Pain Scale: Adult ll3 MDM: 20:04 Patient medically screened. rt 05/08 01:10 Differential diagnosis: Abdominal aortic aneurysm, ureterolithiasis, pyelonephritis, rt diverticulitis. Data reviewed: vital signs, nurses notes, lab test result(s), EKG, radiologic studies. Consideration of Admission/Observation Patient was admitted/placed on observation. Management of patient was discussed with the following: Primary Care Provider: Request the patient be admitted to the hospital.. I considered the following discharge prescriptions or medication management in the emergency department Medications were administered in the Emergency Department. See MAR. Independent interpretation of the following test(s) in the Emergency Department CT Scan: My interpretation is No obstruction seen on interpretation of the CT scan images. Care significantly affected by the following chronic conditions: Hypertension. Counseling: I had a detailed discussion with the patient and/or guardian regarding: the historical points, exam findings, and any diagnostic results supporting the discharge/admit diagnosis, lab results, radiology results, the need for further work-up and treatment in the hospital. 05/07 20:04 Order name: CBC with Diff; Complete Time: 21:03 rt 05/07 20:04 Order name: CMP; Complete Time: 21:03 rt 05/07 20:04 Order name: Lipase; Complete Time: 21:03 rt 05/07 20:04 Order name: Urinalysis w/ reflexes; Complete Time: 21:50 rt 05/07 20:04 Order name: CT Abd/Pelvis - IV Contrast Only; Complete Time: 21:06 rt 05/07 20:04 Order name: IV Saline Lock; Complete Time: 20:29 rt 05/07 20:04 Order name: Labs collected and sent; Complete Time: 20:29 rt EC:10 Rate is 63 beats/min. Rhythm is regular, Normal Sinus Rhythm with No ectopy. QRS rt interval is normal. QT interval is normal. No Q waves. Clinical impression: NSR w/ Non-specific ST/T Changes. Administered Medications: 05/07 20:29 Drug: NS 0.9% IV 1000 ml Route: IV; Rate: 1 bolus; Site: left wrist; ll3 22:00 Follow up: Response: No adverse reaction; IV Status: Completed infusion; IV Intake: ll3 1000ml 20:29 Drug: Ondansetron IVP 4 mg Route: IVP; Site: left wrist; ll3 21:50 Follow up: Response: No adverse reaction; Nausea is decreased kd3 20:29 Drug: morphine IVP or IV 4 mg Route: IVP; Infused Over: 4 mins; Site: left wrist; ll3 21:50 Follow up: Response: No adverse reaction; Pain is unchanged, physician notified kd3 21:11 Drug: morphine IVP or IV 4 mg Route: IVP; Infused Over: 4 mins; Site: left forearm; kd3 23:01 Drug: MethylPrednisoLONE IVP 40 mg Route: IVP; Site: left wrist; ll3 Disposition Summary: 05/07/23 22:15 Hospitalization Ordered Hospitalization Status: Observation rt Provider: Zaheer Able rt Location: Telemetry/MedSurg (observation) rt Condition: Stable rt Problem: an ongoing problem rt Symptoms: have improved rt Bed/Room Type: Standard rt Room Assignment: 218(05/07/23 22:34) cg Diagnosis - Intractable back, abdominal pain rt Forms: - Medication Reconciliation Form rt - SBAR form rt Signatures: Dispatcher [employer] Jessica Painting RN RN cg Rachana Palm RN RN ll3 Britt Ray RN RN kd3 Nahum Hunt MD MD rt Corrections: (The following items were deleted from the chart) 22:15 rt cg
[2023-05-07] MEDS ORDERED: METHYLPREDNISOLONE 125 MG INJ ONE (22:55)
[2023-05-07] MEDS ORDERED: METHYLPRED NA SUC 40 MG in NA CHLORIDE 0.9% 100 ML IV SCH (23:01)
[2023-05-07 23:54] VITALS: BMI 38.9
[2023-05-08] MEDS: MORPHINE 2 MG/ML SYR IV PRN ×4 (01:01→14:18)
[2023-05-08] MEDS ORDERED: ONDANSETRON 4 MG/2 ML VIAL IV PRN (02:00)
[2023-05-08] MEDS: LEVOTHYROXINE SOD 0.088 MG TAB PO SCH (06:11)
[2023-05-08] MEDS: LOSARTAN POTASSIUM 50 MG TABLET PO SCH (10:17)
[2023-05-08] MEDS: ESCITALOPRAM 20 MG TAB PO SCH (10:17)
[2023-05-08] MEDS: hydroCHLOROthiazide 25 MG TAB PO SCH (10:17)
[2023-05-08] MEDS: HYDRALAZINE HCL 10 MG TABLET PO SCH ×2 (10:18→21:14)
[2023-05-08] MEDS: METHYLPREDNISOLONE 40 MG INJ IV SCH ×2 (10:18→21:14)
[2023-05-08] MEDS: ENOXAPARIN 40 MG/0.4 ML SQ SCH (10:18)
--- NOTE | 2023-05-08 16:13 | RAD REPORT ---
EXAM DESCRIPTION: RAD - Hip Bilateral With Pelvis - 05/08/2023 4:08 pm CLINICAL HISTORY: hip pain Pain and swelling COMPARISON: No comparisons FINDINGS: Mild diffuse osteopenia. Mild bilateral hip arthritic changes. No fracture, dislocation or AVN.
[2023-05-08] MEDS ORDERED: LORazepam 2 MG/ML VIAL IV ONE (16:52)
[2023-05-08 18:41] VITALS: O2SAT 95
--- NOTE | 2023-05-08 20:00 | RAD REPORT ---
EXAM DESCRIPTION: MRI - Lumbar Spine Feroz Dang- 05/08/2023 6:20 pm CLINICAL HISTORY: lumbar radiculopathy Radiculopathy COMPARISON: No comparisons FINDINGS: Vertebral body heights are within normal limits. No aggressive marrow pattern is observed. No fracture is suspected. The conus medullaris terminates at a normal level. No thickening of the cauda equina or clumping of n erve roots seen. L1-2 level: Mild posterior disc bulge. L2-3 level: Mild posterior disc bulge with mild facet hypertrophy. L3-4 level: Moderate posterior disc bulge is seen with moderate facet and ligamentum flavum hypertrop hy. No significant canal stenosis or foraminal narrowing L4-5 level: 4 mm degenerative anterolisthesis is present moderate posterior disc bulges with signific ant left-sided facet hypertrophy. Left lateral recess stenosis is present. Moderate central canal shlomo nosis. L5-S1 level: Broad-based posterior disc bulge is seen with mild facet hypertrophy. Significant exit f oraminal stenosis. IMPRESSION: Moderate degenerative spondylosis L4-5.
[2023-05-08] MEDS ORDERED: AMLODIPINE 5 MG TAB PO SCH (21:00)
[2023-05-09] MEDS: LEVOTHYROXINE SOD 0.088 MG TAB PO SCH (06:34)
[2023-05-09] MEDS: HYDRALAZINE HCL 10 MG TABLET PO SCH (09:17)
[2023-05-09] MEDS: ESCITALOPRAM 20 MG TAB PO SCH (09:17)
[2023-05-09] MEDS: LOSARTAN POTASSIUM 50 MG TABLET PO SCH (09:17)
[2023-05-09] MEDS: hydroCHLOROthiazide 25 MG TAB PO SCH (09:17)
[2023-05-09] MEDS: MORPHINE 2 MG/ML SYR IV PRN ×2 (09:17→14:16)
[2023-05-09] MEDS: METHYLPREDNISOLONE 40 MG INJ IV SCH (09:18)
[2023-05-09] MEDS: ENOXAPARIN 40 MG/0.4 ML SQ SCH (09:18)
[2023-05-09 11:50] VITALS: BP 142/69; TEMP 99
--- NOTE | 2023-05-09 13:09 | HP ---
Date of Admission: 05/08/2023 Chief Complaint: Back pain and leg pain. History Of Present Illness: This is a 67-year-old female patient who came into the emergency room with lower back pain and left lateral leg pain and left groin pain. After she was evaluated, she was released to go home and next day, her contacted and informed me that her pain is not any better at all and they are not able to manage pain control at home and she is having trouble walking. So with that, he was advised to bring her back to emergency room and she was brought in yesterday evening. After she was evaluated, I did communicate details with the ER physicians and the patient was admitted to the hospital. She was started on IV steroid medication, which is Solu-Medrol 40 mg every 12 hours and pain medication for pain control. When I saw her this morning, her was present with her at bedside. The patient is having pain in her lower back and left groin area as well as left lateral thigh. Denies any fall or injury. Pain is worse with any standing or walking. No loss of bladder or bowel control. No tingling or numbness of legs. Allergies: LEVAQUIN, CAUSING NAUSEA. Medications: List reviewed. Review of Systems: Musculoskeletal: As mentioned above. All other systems reviewed and negative. Past Medical History: Significant for hypothyroidism, impaired fasting glucose, COVID-19 infection in April 2021 and October 2021, hypertension, hyperlipidemia, known alcoholic fatty liver disease, diverticulosis, anxiety, depression, osteopenia. Past Surgical History: Hysterectomy, bladder suspension, left knee replacement surgery. Family History: Father , had heart disease and hypertension. Mother , had hypertension. Sister has heart disease, hypertension, and thyroid disorder. Social History: Prior history of smoking, not at present time. Use of alcohol, negative. Physical Examination: Vital Signs: Height 5 feet 3 inches, weight 220 pounds, temperature 98.1, pulse 65, respiratory rate 14, blood pressure 138/50, oxygen saturation 97%. General: Awake, alert, oriented, not in distress. HEENT: Head atraumatic, normocephalic. Conjunctivae nonerythematous. Sclerae white. Mouth, no thrush or edema noted. Ears/Nose, no mass, lesion, discharge noted. Neck: Supple. No JVD, lymph nodes, bruit, thyromegaly noted. Lungs: Bilateral good equal air entry. Clear to auscultation. No rhonchi. No rales. Heart: Normal heart sounds, no murmur or gallop. Abdomen: Soft, bowel sounds normal. No guarding, rigidity, tenderness, mass, hepatosplenomegaly, distention, or bruit noted. Extremities: No leg edema. No calf tenderness. Skin: No rash, ulcer, cellulitis. Lymphatics: No lymph node enlargement in neck, supraclavicular, infraclavicular region. Neuro: Patient's straight leg raising is positive in left leg. Power is equal in both lower extremities. No focal neurological deficits noted. Deep tendon reflexes 2+ in both legs. Chest: Unremarkable. External Genitalia: Deferred. Rectal: Deferred. Laboratory Data: Her CAT scan of the abdomen and pelvis done in the emergency room yesterday shows no acute intraabdominal or pelvic findings. Presence of gallstones, but no evidence of any other acute abnormalities. WBC 10.5, hemoglobin 11.7, platelets 285, sodium 137, potassium 3.4, chloride 106, bicarb 24, BUN 19, creatinine 0.76, glucose 121. Liver function tests unremarkable and urinalysis unremarkable. Impression: 1. Lumbar radiculopathy. 2. Hypertension. 3. Hypothyroidism. 4. Impaired fasting glucose. 5. Hyperlipidemia. 6. Known alcoholic fatty liver disease. 7. Diverticulosis. 8. Anxiety. 9. Depression. Plan: We will go ahead and admit the patient to hospital for further evaluation and management of this problem. The patient was started on IV Solu-Medrol 40 mg every 12 hours. We will give DVT prophylaxis per order. Home medications will be continued for hypertension, and monitor blood pressure, make necessary adjustment on antihypertensive medications, if needed to do so. For her hypothyroidism, I will continue her levothyroxine per order. Continue escitalopram for her anxiety and depression. Today, I will go ahead and order MRI of lumbar spine per order and bilateral hip and pelvis x-ray and I have advised the patient to use walker for ambulation at home and the patient's who was at bedside informed me that they do have a walker at home so she does not need a prescription for it. Plan of treatment discussed with them. HIREN/BEBETO Voice ID: [id number] [email or web address]
--- NOTE | 2023-05-09 13:09 | DS ---
Date of Discharge: 05/09/2023 Disposition: The patient will be discharged to go home. Physical Examination: HEENT: Unremarkable. Lungs: Clear to auscultation. Heart: Sounds normal. Abdomen: Soft. Bowel sounds normal. No guarding, rigidity, tenderness, distention. Extremities: No leg edema. DIRECTOR OF PATIENT CARE: No focal neurological deficits. Discharge Diagnoses: 1.Lumbar radiculopathy. 2.Hypertension. 3.Hyperlipidemia. 4.Hypothyroidism. 5.Impaired fasting glucose. 6.Anxiety. 7.Depression. 8.Osteopenia, multiple sites. 9.Nonalcoholic fatty liver disease. Hospital Course: This is a 67-year-old female patient, who was admitted to the hospital with intract able pain in her lower back and left leg. Please see dictated H and P for more information. After s econd visit to emergency room, she was admitted to the hospital for further evaluation and management of this problem. The patient was started on IV Solu-Medrol and pain medications for pain control. She was complaining of pain in the lower back, left lateral thigh as well as left groin area. CAT sc an of the abdomen and pelvis done in the emergency room was unremarkable for any acute findings. The patient does have presence of gallstones, but she is asymptomatic from that. No need for further in tervention for gallstones at this time. Her bilateral hip and pelvis x-ray shows mild degenerative c hanges in bilateral hips, no fracture, no acute changes. MRI of the lumbar spine done yesterday with out contrast shows evidence of degenerative joint disease with bulging disk and facet joint arthropat hy. There is also moderate spinal stenosis. Overall, the patient's symptoms have improved and today she will be discharged to go home in stable condition with following discharge medications and instr uctions. I have instructed her to come see me next week and depending on how she responds with conse rvative treatment, we will have to make a decision whether we provide her outpatient referral to Neur osurgery or not depends on her symptoms and improvement. We will also consider outpatient physical t herapy when I see her next week at office. All this plan of treatment discussed with the patient and the patient's who was at bedside an d I have also discussed with both of them regarding how to take prednisone and meloxicam as prescribe d upon discharge. Discharge Medications And Instructions: 1.Continue all prior home medication. 2.Start prednisone 10 mg tablet, take 3 tablets daily for 3 days, then 2 tablets daily for 3 days, t hen 1 tablet daily for 3 days, then stop, take it with food in the morning after breakfast starting t omorrow. 3.Meloxicam 15 mg, take 1 tablet by mouth daily in the evening after meal. 4.Follow up at my office next week and the patient was advised to use walker to ambulate. HIREN/BEBETO Voice ID: [id number] Report ID: [id number]
--- NOTE | 2023-05-12 13:19 | EKG ---
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
== END 2023-05-09 14:47 | disposition home or self-care (01) | DRG 552 ==
LOC: ER 20:02 → ERHOLD 22:17 → 2ND 22:54 → OBSVTOIN 05-08 21:24
PROVIDERS: ADMIT Internal Medicine; ATTEND Internal Medicine
DX: M54.16 Radiculopathy, lumbar region (principal); M47.896 Other spondylosis, lumbar region; I10 Essential (primary) hypertension; E78.5 Hyperlipidemia, unspecified; E03.9 Hypothyroidism, unspecified; R73.01 Impaired fasting glucose; K57.90 Diverticulosis of intestine, part unspecified, without perforation or abscess without bleeding; F41.9 Anxiety disorder, unspecified; F32.A Depression, unspecified; M85.89 Other specified disorders of bone density and structure, multiple sites; K76.0 Fatty (change of) liver, not elsewhere classified; M48.061 Spinal stenosis, lumbar region without neurogenic claudication; M79.652 Pain in left thigh; K80.20 Calculus of gallbladder without cholecystitis without obstruction; Z88.3 Allergy status to other anti-infective agents; Z87.891 Personal history of nicotine dependence; Z86.16 Personal history of COVID-19; Z28.310 Unvaccinated for COVID-19; Z90.710 Acquired absence of both cervix and uterus; Z82.49 Family history of ischemic heart disease and other diseases of the circulatory system
CPT/HCPCS: 36415; 72148; 73521; 74177; 80053; 81001; 81003; 83690; 85025; 93005; 96365; 96375; 99284; 99285; J0696; J1650; J2270; J2405; J2920; J2930; J3360; J7030; Q9967

== ENCOUNTER 2023-07-24 13:20 | Inpatient (IN) | payer OTHER ==
--- OUTSIDE RECORDS SUMMARY | 2023-07-24 13:26 | XMS REPORT | Continuity of Care Document ---
:1955 Author Organization Formerly [facility] t Address [address] [facility] [address] [place] [id number] Care Team Providers Name Role Phone Sky Attending Clinician Unavailable Harrison Attending Clinician Unavailable Cristiane Becerra Attending Clinician Sky Admitting Clinician Unavailable Harrison Admitting Clinician Unavailable UNDEFINED Admitting Clinician Unavailable Payers Payer Name Policy Type Policy Number Effective Date Expiration Date S joo MEDICARE B-[place]: [id number] 2018 404 Found! 00:00:00 [employer] (MEDICARE [id number] SUPPLEMENT) [employer] [id number] AND HEALTH INSURANCE - [employer] LIFE INSURANCE [...] fluconaz DA Active [facility] ole 02-04 [place] 00:00: Orthope 00 dic Hospita l levoflox [...] Quantity Comments Source Exposure to Not sure [facility] SARS-CoV-2 [place] Medical (event) Branch Tobacco use and 2021-04-26 2021-04-26 Never used Universit y of exposure 00:00:00 00:00:00 [facility] Alcohol intake 2021-04-26 2021-04-26 Current University 00:00:00 00:00:00 non-drinker of [facility] alcohol Branch (finding) Sex Ass[birth year] At [birth year] Universit y of 00:00:00 00:00:00 [facility] Smoking Status Start Date Stop Date Source Never smoker General acute hospital Medications Ordered Filled Start Stop Current Ordering [...] by mouth ity of iazide 21:37: daily. [place] (HYZAAR) Medical 100-12.5 mg Branch per tablet conjugated Yes .625mg Take 0.625 Univers estrogens 7-17 mg by ity of (PREMARIN) 21:37: mouth [place] 0.625 mg 16 daily. Medical tablet Branch PREDNISONE Yes 10mg Take 10 mg U nivers ORAL 7-17 by mouth ity of 21:37: daily. [place] [address] Medical Branch LORazepam Yes .5mg Take 0.5 Univ ers 0.5 mg 7-17 mg by ity of tablet 21:37: mouth at [place] 16 bedtime. Medical Branch fluocinolon Yes 2g Apply 2-4 U nivers e 0.01 % 7-17 g to ity of cream 21:37: area(s) 2 [place] 16 (two) Medical times Branch daily. sennosides- Yes 1{tbl} Take 1 Un trayn docusate 7-17 tablet by ity of sodium [...] DAY A DAY MOUTH TWICE A DAY nitrofurant nitrofurant No nitrofuran Beth oin oin toin Orthope monohydrate monohydrate monohydrat dic /macrocryst /macrocryst e/macrocry Sports als 100 mg als 100 mg stals 100 Medicin capsule capsule mg capsule e TAKE 1 TAKE 1 TAKE 1 CAPSULE BY CAPSULE BY CAPSULE BY MOUTH TWICE MOUTH TWICE MOUTH A DAY A DAY TWICE A DAY atorvastati atorvastati No atorvastat [facility] n 10 mg n 10 mg in 10 mg Medic al tablet TAKE tablet TAKE tablet 1 TABLET BY 1 TABLET BY TAKE 1 MOUTH MOUTH TABLET BY EVERYDAY AT EVERYDAY AT MOUTH BEDTIME BEDTIME EVERYDAY AT BEDTIME Plenvu 140 Plenvu 140 No Plenvu 140 Beth gram-9 gram-9 gram-9 Orthope gram-5.2 gram-5.2 gram-5.2 dic gram powder gram powder gram S ports packs TAKE packs TAKE powder M edicin DIRECTED DIRECTED packs TAKE e BY BY PHYSICIAN PHYSICIAN DIRECTED OFFICE OFFICE BY PHYSICIAN OFFICE cyclobenzap cyclobenzap No cyclobenza [facility] rine 5 mg rine 5 mg bettie 5 mg Medical tablet TAKE tablet TAKE tablet 1 TABLET BY 1 TABLET BY TAKE 1 MOUTH MOUTH TABLET BY EVERYDAY AT EVERYDAY AT MOUTH BEDTIME BEDTIME EVERYDAY AT BEDTIME Premarin Premarin No Premarin Aza yudelka 0.625 mg 0.625 mg 0.625 mg Ort hope tablet TAKE tablet TAKE tablet dic 1 TABLET BY 1 TABLET BY TAKE 1 Sports MOUTH EVERY MOUTH EVERY TABLET BY Medicin DAY DAY MOUTH e EVERY DAY escitalopra escitalopra No escitalopr [facility] m 20 [...] BMI (Body Mass 2022-10-09 00:00:00 38.6 kg/m2 [facility] Medical Index) BP Systolic 2022-10-09 00:00:00 172 mm[Hg] Jakob victoria Body Weight 2022-10-09 00:00:00 218 [lb_av] Jakob victoria Systolic blood 2021-04-26 21:56:00 145 mm[Hg] [facility] Diastolic blood 2021-04-26 21:56:00 58 mm[facility]Hg[facility] 2021-04-26 21:56:00 67 /min [facility] Body temperature 2021-04-26 21:56:00 37.17 [facility] Respiratory rate 2021-04-26 21:56:00 18 /min [facility] Body height 2021-04-26 21:56:00 160 cm [facility] Body weight 2021-04-26 21:56:00 97.977 kg [facility] BMI 2021-04-26 21:56:00 38.26 kg/m2 [facility] Oxygen saturation in 2021-04-26 21:56:00 95 /min [facility] Arterial blood by [facility] Pulse oximetry Branch Procedures Procedure Date [...] PRIVACY 2021-04-26 21:37:21 Doctor Unassigned, [facility] Branch Orthopedic - Knee 2017-02-04 00:00:00 [facility] Tubal Ligation [facility] Other [facility] Surgery [facility] Hysterectomy with [facility] Medical Oopherectomy (Ovaries Removed) Plan of Care Planned Activity Planned Date Details Comments Source Diagnostic Test 2022-10-09 Mucor racemosus [facility] dical Pending 00:00:00 IgE Ab [Units/volume] in Serum [code = 6182-0] Future Appointment 2023-10-09 Manish Mcneil, [address] Medical 00:00:[address] , [place] [address] Instructions [facility] Orthoped ic Sports Medicine Encounters Start End Encounter Admission Attending Care Care Encounter Source Date/Time Date/Time Type Type Clinicians Facility Department ID 2023-01-07 2023-01-07 Outpatient FOG_Burke_R AOSM AOSM [id number] Beth 00:00:00 00:00:00 Isiah [id number] Ortho pe dic Sports Medicin e 2023-01-03 2023-01-03 Outpatient FOG_Burke_R AOSM AOSM [id number] Beth 00:00:00 00:00:00 Isiah [id number] Ortho pe dic Sports Medicin e 2023-01-03 2023-01-03 Juan David Strong AOSM [place] - Ortho [id number] Beth 00:00:00 00:00:00 Velia Meza MD: [id number] FOG_Ofc dic [facility] Spo [facility]3], [place] [address] , Ph. [phone] 2022-12-16 2022-12-16 Outpatient GC_SWHAOMC_ PRIV PRIV [id number] [facility] 00:00:00 00:00:00 Freddy [id number] Medic al 2022-11-29 2022-11-29 Outpatient FOG_Burke_R AOSM AOSM [id number] Beth 00:00:00 00:00:00 Isiah [id number] Ortho pe dic Sports Medicin e 2022-11-29 2022-11-29 Outpatient FOG_Burke_R AOSM AOSM [id number] Beth 00:00:00 00:00:00 Isiah [id number] Ortho pe dic Sports Medicin e 2022-11-18 2022-11-18 Outpatient GC_SWHAOMC_ PRIV PRIV [id number] [facility] 00:00:00 00:00:00 Freddy [id number] Medic al 2022-10-09 2022-10-09 Manish PRIV [facility] - [facility] [id number] [facility] 00:00:00 00:00:00 [facility] Medic al BRITTNY Mcneil_ : [address], [place] [address] , Ph. 2022-09-23 2022-09-23 Outpatient GC_SWHAOMC_ PRIV PRIV 505 [id number] [facility] 00:00:00 00:00:00 Freddy [id number] Medic al 2022-09-23 2022-09-23 Outpatient GC_SWHAOMC_ PRIV PRIV 505 [id number] [facility] 00:00:00 00:00:00 Freddy [id number] Medic al 2022-09-23 2022-09-23 Outpatient GC_SWHAOMC_ PRIV PRIV 505 [id number] [facility] 00:00:00 00:00:00 Freddy [id number] Medic al 2022-09-23 2022-09-23 Outpatient GC_SWHAOMC_ PRIV PRIV 505 [id number] [facility] 00:00:00 00:00:00 Freddy [id number] Medic al 2022-06-11 2022-06-11 Outpatient GC_SWHAOMC_ PRIV PRIV [id number] [facility] 00:00:00 00:00:00 Freddy [id number] Medic al 2022-05-20 2022-05-20 Outpatient GC_SWHAOMC_ PRIV PRIV 505 [id number] [facility] 00:00:00 00:00:00 Freddy [id number] Medic al 2021-06-06 2021-06-06 Outpatient GC_SWHAOMC_ PRIV PRIV [id number] [facility] 00:00:00 00:00:00 Freddy [id number] Medic al 2021-04-26 2021-04-26 Emergency [facility] [id number] Univers 16:59:00 18:00:00 Cristiane Wong [id number] i ty odell Iraheta [id number] [facility] [id number] [facility] 084 Branch 2021-04-26 2021-04-26 Emergency X [facility] ERT [id number] Univers 16:36:00 16:36:00 ity of [facility] 2019-10-29 2019-11-05 Inpatient HCAPM NASIR [id number] [facility] 13:26:00 21:03:10 80 [facility] Results Test Description Test Time Test Comments Results Result Comments Source Hemoglobin.gastrointestinal.lower [Presence] in Stool by 10-14-03 00:00:00 Immunoassay Test Item Value Reference Range Interpretation Comme nts occult bld, immunochem (test code = occult bld, immunochem) negativ e negative [facility] Medicalpap, LB + HR [id number] 00:00:00 Test Item Value Reference Range Interpretation Comments LMP date: (test code = LMP 06/06/2021 date:) Pap, liquid-based (test code = nilm nilm Pap, liquid-based) source (liquid-based cytology): vaginal cuff (test code = source (liquid-based cytology):) [facility]- CT ABD PELVIS [id number] 15:38:00 Name: JEFFERY MATHIS [facility] : 1955 Age/S: 64 / F [address] Unit #: [id number] Loc: [place] [address] Phys: Scar Munoz MD Acct: [id number] Dis Date: Status: REG ER PHONE #: [phone] Exam Date: 10/29/2019 1512 FAX #: Reason: trauma EXAMS: CPT: [id number] CT ABD PELVIS W/CONT [address] CHEST, ABDOMEN AND PELVIS WITH [...] 1 Signed Report (CONTINUED) Name: JEFFERY MATHIS [facility] : 1955 Age/S: 64 / F [address] Unit #: [id number] Loc: [place] [address] Phys: Scar Munoz MD Acct: [id number] Dis Date: Status: REG ER PHONE #: [phone] Exam Date: 0 10/29/2019 1519 FAX #: Reason: trauma EXAMS: CPT: [id number] CT ABD PELVIS W/CONT 37588 <Continued> at 1538 Reported and signed by: Addison Topete M.D. CC: Scar Munoz MD Technologist:Ludwin Lilly, RT(R)(CT); .. CTDI: DLP: Trnscb Date/Time: 10/29/2019 (1538) [email or web address] Orig Print D/T: S: 10/29/2019 (1111) PAGE 2 Signed Report- CT CHEST [id number] 15:38:00 Name: JEFFERY MATHIS [facility] : 1955 Age/S: 64 / F [address] [address] Unit #: [id number] Loc: [place] [address] Phys: Scar Munoz MD Acct: [id number] Dis Date: Status: REG ER PHONE #: [phone] Exam Date: 10/29/2019 1510 FAX #: Reason: trauma EXAMS: CPT: [id number] CT CHEST W/CONTRAST [address] CHEST, ABDOMEN AND PELVIS WITH [...] 1 Signed Report (CONTINUED) Name: JEFFERY MATHIS [facility] : 1955 Age/S: 64 / F [address] [facility] Unit #: [id number] Loc: [place] [address] Phys: Scar Munoz MD Acct: [id number] Dis Date: Status: [facility] ER PHONE #: [phone] Exam Date: 10/29/2019 1517 FAX #: Reason: trauma EXAMS: CPT: [id number] CT CHEST W/CONTRAST 42120 <Continued> at 1538 Reported and signed by: Addison Topete M.D. CC: Scar Munoz MD Technologist:Ludwin Lilly, RT(R)(CT); .. CTDI: DLP: Trnscb Date/Time: 10/29/2019 (1538) [email or web address] Orig Print D/T: S: 10/29/2019 (1691) PAGE 2 Signed Report- XR ANKLE 3+V [id number] 15:37:00 Name: JEFFERY MATHIS [facility] : 1955 Age/S: 64 / F [address] [facility] Unit #: [id number] Loc: [place] [address] Phys: Scar Munoz MD Acct: [id number] Dis Date: Status: REG ER PHONE #: [phone] Exam Date: 10/29/2019 1535 FAX #: Reason: ankle pain EXAMS: CPT: [id number] XR ANKLE 3+[place] [address] Fluoro Time: DAP (Gy m2): Air Kerma [...] PAGE 1 Signed Report Name: JEFFERY MATHIS [facility] : 1955 Age/S: 64 / F [address] [facility] Unit #: [id number] Loc: [place] [address] Phys: Scar Munoz MD Acct: [id number] Dis Date: Status: REG ER PHONE #: [phone] Exam Date: 10/29/2019 1535 FAX #: Reason: ankle pain EXAMS: CPT: [id number] XR ANKLE 3+V [place] [address] Fluoro Time: DAP (Gy m2): Air Kerma (mGy): <Continued> Technologist: Lesvia Gallardo RT(R)(CT) Trnscb Date/Time: 10/29/2019 (1537) John Orig Print D/T: S: 10/29/2019 (1695) PAGE 2 Signed Report- CT C-SPINE W/O [id number] 15:19:00 Name: JEFFERY MATHIS [facility] : 1955 Age/S: 64 / F [address] [address] Unit #: [id number] Loc: [place] [address] Phys: Scar Munoz MD Acct: [id number] Dis Date: Status: REG ER PHONE #: [phone] Exam Date: 10/29/2019 1510 FAX #: Reason: neck pain EXAMS: CPT: [id number] CT C-SPINE W/O CONT 57253 CT CERVICAL SPINE WITHOUT CONTRAST LOCATION: R16 [...] and sagittal reconstructive images are within normal limits. IMPRESSION: No acute osseous abnormality involving the cervical spine. Loss of cervical lordosis, possibly due to positioning or muscle spasm. at 1519 Reported and signed by: Patricia Plascencia M.D. CC: Scar Munoz MD Technologist:Ludwin Lilly, RT(R)(CT); .. CTDI: DLP: Trnscb Date/Time: 10/29/2019 (1519) [email or web address] Orig Print D/T: S: 10/29/2019 (1522) PAGE 1 Signed Report- CT HEAD/BRAIN W/O [id number] 15:18:00 Name: JEFFERY MATHIS [facility] : 1955 Age/S: 64 / F [address] [address] Unit #: [id number] Loc: [place] [address] Phys: Scar Munoz MD Acct: [id number] Dis Date: Status: REG ER PHONE #: [phone] Exam Date: 10/29/2019 1509 FAX #: Reason: headache EXAMS: CPT: [id number] CT HEAD/BRAIN W/O CONT 55014 Site ID: [id number] CT head TECHNIQUE: CT [...] is seen. Cerebral and cerebellar hemispheres are well-formed. There is no evidence for acute cerebral edema. The bony calvarium and visualized paranasal sinuses are normal. No focal soft tissue swelling or scalp hematoma. IMPRESSION: Negative noncontrast head CT. at 1518 Reported and signed by: Bakari Munoz M.D. CC: Scar Munoz MD Technologist:Ludwin Lilly, RT(R)(CT); .. CTDI: DLP:Trnscb Date/Time: 10/29/2019 (1518) [email or web address] Orig Print D/T: S: 10/29/2019 (5162) PAGE 1 Signed ReportUA RFLX MICR CULT IF [id number] 14:58:00 Test Item Value Reference Range Interpretation [...] for culture: Dysuria/FrequencyUA RFLX MICR CULT IF [id number] 14:46:00 Test Item Value Reference Range Interpretation [...] URINE: CLEAN CATCHIndication for culture: Dysuria/FrequencyBASIC METABOLIC [id number] 14:22:00 Test Item Value Reference Range Interpretation [...] CA) 9.1 MG/DL 8.5-10.1 N CBC W/AUTO [id number] 14:03:00 Test Item Value Reference Range Interpretation [...]
[2023-07-24 14:09] VITALS: BMI 38.2
[2023-07-24] MEDS ORDERED: ONDANSETRON 4 MG/2 ML VIAL IV PRN (14:53)
[2023-07-24] MEDS: D5 0.9 NS 1,000 ML IV SCH (15:25)
[2023-07-24] MEDS: MORPHINE 2 MG/ML SYR IV PRN ×2 (15:28→19:54)
--- NOTE | 2023-07-24 15:50 | RAD REPORT ---
EXAM DESCRIPTION: CT - Abdomen Pelvis Wo Contrast - 07/24/2023 3:11 pm CLINICAL HISTORY: diverticulitis COMPARISON: Abdomen Pelvis W Contrast dated 05/07/2023; Abdomen Pelvis W Contrast dated 05/06/2023; Abdomen Pelvis W Contrast dated 03/31/2023; Stone Protocol dated 03/23/2019 TECHNIQUE: Thin cut axial CT imaging of the abdomen and pelvis was performed without IV contrast. Mu ltiplanar reformats were generated and reviewed. All CT scans are performed using dose optimization technique as appropriate and may include automated exposure control or mA/KV adjustment according to patient size. FINDINGS: No suspicious findings in the lung bases. Diffuse hepatic parenchymal hypoattenuation suggesting steatosis, without focal parenchymal suspiciou s lesion The adrenal glands, spleen, and pancreas show no suspicious findings. Gallbladder is filled with radiopaque stones. Symmetric renal contour, without suspicious parenchymal findings within limits of noncontrast techniq ue. No evidence of radiopaque calculi or hydroureteronephrosis. No dilated bowel loops. Colonic diverticulosis. Focal wall thickening of the mid to distal sigmoid co kelvin, with inflammatory changes along a superiorly directed diverticulum, see axial image 63 series 20 1, with adjacent fat stranding. No free air, free fluid or localized collections. No hernia, mass or bulky lymphadenopathy. The urinary bladder is without significant finding. No suspicious bony findings. IMPRESSION: Findings of acute uncomplicated diverticulitis of the mid to distal sigmoid colon. Cholelithiasis. Diffuse hepatic steatosis.
[2023-07-24 16:00] LABS: Absolute Lymphocytes (CBC) 1.9 K/uL (0.7-4.9); Hematocrit 36.5 % (36.0-45.0); Lymphocytes % 20.5 % (15.3-44.8); MCV 91.7 fL (80-100); MPV 8.2 fL (7.6-11.3); Platelets 237 thou/uL (152-406); RBC Red Blood Cell Count 3.98 M/uL (3.86-4.86)
[2023-07-24 16:17] LABS: Albumin 2.8 g/dL (3.4-5.0); Bilirubin Total 0.6 mg/dL (0.2-1.0); Magnesium 1.9 mg/dL (1.6-2.4); Potassium 3.4 mEq/L (3.5-5.1); Protein, Total 6.8 g/dL (6.4-8.2)
[2023-07-24 16:19] LABS: Specific Gravity 1.023 (1.005-1.030); Urine Bacteria <20 /HPF (<20); Urine Bilirubin NEGATIVE (Negative); Urine Blood 1+ (Negative); Urine Clarity Turbid (Clear); Urine Color Yellow (Yellow); Urine Glucose NEGATIVE (Negative); Urine Mucus Slight /HPF (None Seen); Urine Protein TRACE (Negative); Urine Urobilinogen Normal (Normal)
[2023-07-24] MEDS: ENOXAPARIN 40 MG/0.4 ML SQ SCH (17:17)
[2023-07-24] MEDS: PIPER TAZO 3.375 GM in NA CHLORIDE 0.9% 100 ML IV SCH (17:17)
[2023-07-25] MEDS: PIPER TAZO 3.375 GM in NA CHLORIDE 0.9% 100 ML IV SCH ×3 (00:47→18:05)
[2023-07-25] MEDS: MORPHINE 2 MG/ML SYR IV PRN ×4 (02:37→22:33)
[2023-07-25] MEDS: D5 0.9 NS 1,000 ML IV SCH ×3 (04:20→08:00)
--- NOTE | 2023-07-25 08:39 | HP ---
Date of Admission: 07/24/2023 Chief Complaint: Abdominal pain. History Of Present Illness: This is a 67-year-old pleasant female patient who came into office today with about 3 days history of lower abdominal pain. Her pain has been continuous. She has had some constipation lately, but last bowel movement was yesterday. Denies any blood in stool. Denies any urinary complaints. No fever, chills, nausea, or vomiting. No blood in the urine or blood in stool. After she was evaluated at office, she was diagnosed to have acute diverticulitis and she was admitted to the hospital for further management. Allergies: AT OFFICE, SHE IS LISTED ALLERGIC TO LEVAQUIN, CAUSING NAUSEA, BUT HERE IN THE HOSPITAL RECORD, SHE IS LISTED ALLERGIC TO BACTRIM AND METRONIDAZOLE WELL. Medications: List reviewed. Review of Systems: GI: As mentioned above. All other systems reviewed and negative. Past Medical History: Significant for hypothyroidism, impaired fasting glucose, COVID-19 infection in April of 2021 and October of 2021, hypertension, hyperlipidemia, non-alcoholic fatty liver disease, diverticulosis, anxiety, depression, osteopenia. Past Surgical History: Hysterectomy, bladder suspension, left knee replacement surgery. Family History: Father , had heart disease and hypertension. Mother and had hypertension. Sister has heart disease, hypertension, and thyroid disorder. Social History: Prior history of smoking, not at present time. Use of alcohol is negative. Physical Examination: Vital Signs: Blood pressure 141/76, pulse 69, temperature 98 degrees Fahrenheit, respiratory rate 18. Weight 215.6 pounds and height 63 inches. General: Awake, alert, oriented, not in distress. HEENT: Head atraumatic, normocephalic. Conjunctivae nonerythematous. Sclerae white. Mouth, no thrush or edema noted. Ears/Nose, no mass, lesion, discharge noted. Neck: Supple. No JVD, lymph nodes, bruit, thyromegaly noted. Lungs: Bilateral good equal air entry. Clear to auscultation. No rhonchi. No rales. Heart: Normal heart sounds, no murmur or gallop. Abdomen: Soft, bowel sounds normal. Presence of tenderness in left lower and right lower quadrant and suprapubic area. No guarding, rigidity, distention. No bruit. Extremities: No leg edema. No calf tenderness. Skin: No rash, ulcer, cellulitis. Lymphatics: No lymph node enlargement in neck, supraclavicular, infraclavicular region. Neuro: No focal neurological deficit. Chest: Unremarkable. External Genitalia: Deferred. Rectal: Deferred. Laboratory Data: White count 9.2, hemoglobin 12.6. Sodium 136, potassium 3.4, chloride 105, bicarb 28, BUN 11, creatinine 0.68, glucose 120. Liver function tests unremarkable. Urinalysis unremarkable. CT scan of abdomen and pelvis without contrast shows evidence of fatty liver, gallstones and uncomplicated diverticulitis of mid to distal sigmoid colon. Impression: 1. Acute diverticulitis. 2. Hypokalemia. 3. Non-alcoholic fatty liver disease. 4. Gallstones. 5. Hypertension. 6. Hypothyroidism. 7. Impaired fasting glucose. 8. Hyperlipidemia. 9. Anxiety. 10. Depression. Plan: Admit patient to hospital for further evaluation and management of this problem. Patient is appropriate for inpatient and is expected to spend 2 midnights in hospital. We will go ahead and keep her n.p.o. today and start her on IV antibiotics, Zosyn. Pain medication and nausea medication will be given on an as needed basis. DVT prophylaxis will be given using Lovenox. We will replace potassium per electrolyte replacement protocol. For hypertension, we will continue antihypertensive medication with parameters to hold if systolic blood pressure less than 120. For hypothyroidism, we will continue her levothyroxine as per order. The patient takes escitalopram for her anxiety and depression, and we will continue that. Ambulation will be encouraged. I will see her tomorrow morning for followup and give IV fluid per order. Depending on her condition tomorrow, we will decide if we can start her on clear liquid diet tomorrow or not. HIREN/MODL Voice ID: [id number] MTDD
--- NOTE | 2023-07-25 08:45 | PN ---
Date of Progress Note: 07/25/2023 Subjective: Patient was seen this morning for followup. No new complaints or problems reported by her. Denies any nausea, vomiting. No bowel movement overnight. Objective: Vital Signs: Reviewed. HEENT: Unremarkable. Lungs: Clear to auscultation. Heart: Sounds normal. Abdomen: Soft. Bowel sounds normal. No guarding, rigidity, distention. No rebound tenderness. Patient does have tenderness present in lower quadrant, which is left lower quadrant suprapubic and right lower quadrant, but overall it is better today than yesterday. Impression: 1. Acute diverticulitis. 2. Hypokalemia. 3. Hypertension. 4. Hyperlipidemia. 5. Hypothyroidism. 6. Gallstones, asymptomatic. Plan: We will go ahead and continue IV fluid, but reduce rate down to 50 cc/hour. We will start her on clear liquid diet today. Ambulation was encouraged. Continue current pain medication and nausea medication as needed. Continue current antibiotic, which is IV Zosyn and I will see her tomorrow for followup. Depending on her condition, we will decide if we can possibly discharge her to go home tomorrow or not. HIREN/MODL Voice ID: [id number] Report ID: [id number] MC
[2023-07-25] MEDS: ESCITALOPRAM 20 MG TAB PO SCH (08:57)
[2023-07-25] MEDS: LOSARTAN POTASSIUM 50 MG TABLET PO SCH (08:57)
[2023-07-25] MEDS: LEVOTHYROXINE SOD 0.088 MG TAB PO SCH (08:58)
[2023-07-25] MEDS: HYDRALAZINE HCL 10 MG TABLET PO SCH ×2 (08:58→21:21)
[2023-07-25] MEDS ORDERED: HYDRALAZINE HCL 10 MG TABLET PO SCH (09:00)
[2023-07-25] MEDS ORDERED: HOME MED 1 EA UNK (Losartan Potassium [Cozaar] 100 MG Tablet) PO SCH (09:00)
[2023-07-25] MEDS: ENOXAPARIN 40 MG/0.4 ML SQ SCH (18:07)
[2023-07-25] MEDS ORDERED: AMLODIPINE 5 MG TAB PO SCH ×2 (21:00)
[2023-07-26] MEDS: PIPER TAZO 3.375 GM in NA CHLORIDE 0.9% 100 ML IV SCH ×2 (00:52→08:54)
[2023-07-26] MEDS: LEVOTHYROXINE SOD 0.088 MG TAB PO SCH (05:10)
[2023-07-26] MEDS: MORPHINE 2 MG/ML SYR IV PRN ×2 (05:53→11:53)
[2023-07-26] MEDS ORDERED: POTASSIUM CL SA 10 MEQ TAB PO ONE (08:00)
[2023-07-26] MEDS: ESCITALOPRAM 20 MG TAB PO SCH (08:52)
[2023-07-26] MEDS: LOSARTAN POTASSIUM 50 MG TABLET PO SCH (08:54)
[2023-07-26] MEDS: HYDRALAZINE HCL 10 MG TABLET PO SCH (08:54)
[2023-07-26] MEDS: D5 0.9 NS 1,000 ML IV SCH (08:55)
[2023-07-26] MEDS ORDERED: POTASSIUM 25 MEQ EFFERV TAB PO ONE (11:07)
[2023-07-26] MEDS ORDERED: MELOXICAM 7.5 MG TAB PO ONE (13:30)
--- NOTE | 2023-07-26 14:00 | DS ---
Date of Discharge: 07/26/2023 Disposition: Discharged to go home. Objective: Vital Signs: Reviewed. HEENT: Unremarkable. Lungs: Clear to auscultation. Heart: Sounds normal. Abdomen: Soft. Bowel sounds normal. No guarding, rigidity, distention. No rebound tenderness. No guarding, rigidity or tenderness. Extremities: No leg edema. Hospital Course: A 67-year-old pleasant female patient admitted to the hospital with abdominal pain. Please see dictated H and P for more information. After she came into my office, a decision was made to admit her directly to the hospital with diagnosis of acute diverticulitis. Further workup done in the hospital after she was admitted including blood work and CAT scan and the CAT scan did prove that she had acute diverticulitis without any complication. Initially on the day of admission, she was kept n.p.o. Next day on, we started her on clear liquid diet, which she has tolerated very well. The patient is ambulating very well. Vital signs are stable this morning. Patient informed me that since she has been lying in the hospital bed, now she is having pain in her lower back on the right side going down to right thigh and she had this lumbar radiculopathy type of problem requiring hospital admission about 2 months ago. What I will plan to do is there is no reason for her to require ongoing hospitalization for diverticulitis and definitely no reason to keep her hospital for this lumbar radiculopathy pain, so my plan is to go ahead and discharge her to go home today with appropriate antibiotics and anti-inflammatory medication for her lower back and I will follow up on her next week as outpatient and if she is not improving with anti-inflammatory medication, then we will consider oral steroid therapy. Laboratory Data: Upon admission white count 9.2, hemoglobin 12.6, potassium 3.4, sodium 136, chloride 105, bicarb 28, BUN 11, creatinine 0.68, glucose 120. Liver function tests unremarkable. Urinalysis unremarkable. CAT scan of abdomen and pelvis shows fatty liver disease, gallstones, and uncomplicated diverticulitis involving the mid to distal sigmoid colon. Final Diagnoses: 1. Acute diverticulitis. 2. Hypokalemia. 3. Nonalcoholic fatty liver disease. 4. Gallstones. 5. Hypertension. 6. Hypothyroidism. 7. Lumbar radiculopathy. 8. Impaired fasting glucose. 9. Hyperlipidemia. 10. Anxiety. 11. Depression. Discharge Medications And Instructions: 1. Continue all prior home medication. 2. Take Augmentin 875 mg 1 tablet 2 times a day for 1 week and meloxicam 15 mg daily with food and follow up at office next week. HIREN/MODL Voice ID: [id number] Report ID: [id number] MTDD
[2023-07-31 12:39] VITALS: BP 147/60; TEMP 98.5
[2023-07-31 12:41] VITALS: O2SAT 97
== END 2023-07-26 16:24 | disposition home or self-care (01) | DRG 392 ==
LOC: 2ND 13:20
PROVIDERS: ADMIT Internal Medicine; ATTEND Internal Medicine
DX: K57.32 Diverticulitis of large intestine without perforation or abscess without bleeding (principal); E03.9 Hypothyroidism, unspecified; I10 Essential (primary) hypertension; F32.A Depression, unspecified; E78.5 Hyperlipidemia, unspecified; F41.9 Anxiety disorder, unspecified; E87.6 Hypokalemia; K76.0 Fatty (change of) liver, not elsewhere classified; M54.16 Radiculopathy, lumbar region; K80.20 Calculus of gallbladder without cholecystitis without obstruction; R73.01 Impaired fasting glucose; Z88.8 Allergy status to other drugs, medicaments and biological substances; Z88.1 Allergy status to other antibiotic agents; Z86.16 Personal history of COVID-19; Z96.652 Presence of left artificial knee joint; Z90.710 Acquired absence of both cervix and uterus
CPT/HCPCS: 36415; 74176; 80053; 81001; 83735; 85025; 87086; 87088; J1650; J2270; J2405; J2543; J7042

== ENCOUNTER 2023-11-25 13:11 | Observation (INO) | payer OTHER ==
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
[2023-11-25 15:35] VITALS: BMI 38.2
[2023-11-25] MEDS ORDERED: ONDANSETRON 4 MG/2 ML VIAL IV PRN (15:44)
[2023-11-25 16:17] LABS: Absolute Lymphocytes (CBC) 2.2 K/uL (0.7-4.9); Hematocrit 35.1 % (36.0-45.0); MCV 90.8 fL (80-100); MPV 8.7 fL (7.6-11.3); Platelets 254 thou/uL (152-406); RBC Red Blood Cell Count 3.86 M/uL (3.86-4.86)
[2023-11-25] MEDS: MORPHINE 2 MG/ML SYR IV PRN (16:30)
[2023-11-25 16:53] LABS: Bilirubin Total 0.3 mg/dL (0.2-1.0); Magnesium 1.8 mg/dL (1.6-2.4); Potassium 3.5 mEq/L (3.5-5.1); Protein, Total 6.8 g/dL (6.4-8.2); Thyroid Stimulating Hormone 1.68 uIU/mL (0.358-3.740)
--- NOTE | 2023-11-25 19:25 | RAD REPORT ---
EXAM DESCRIPTION: CT - Abdomen Pelvis W Contrast - 11/25/2023 7:01 pm CLINICAL HISTORY: Abdominal pain/right lower quadrant pain COMPARISON: 2022 TECHNIQUE: Computed axial tomography of the abdomen and pelvis was obtained. 100 cc Isovue-300 is ad ministered intravenously. Oral contrast was given. All CT scans are performed using dose optimization technique as appropriate and may include automated exposure control or mA/KV adjustment according to patient size. FINDINGS: Fatty liver Cholelithiasis without gallbladder wall thickening Spleen, pancreas, adrenals and kidneys unremarkable Hysterectomy. No adnexal mass. Diverticula stem from the colon without visualization of diverticuliti s. An abnormal appendix is not seen IMPRESSION: Cholelithiasis without evidence of cholecystitis
--- NOTE | 2023-11-25 20:01 | RAD REPORT ---
EXAM DESCRIPTION: MRI - Lumbar Spine Wo Con - 11/25/2023 7:36 pm CLINICAL HISTORY: Lumbar radiculopathy COMPARISON: 2022 TECHNIQUE: Sagittal T1, T2 and STIR weighted sequences were obtained. Axial T1 and T2 sequences were obtained through the lumbar disc levels. FINDINGS: Mild spondylosis L1-2, L2-3 and L3-4 Mild anterior subluxation L4 on L5. Disc bulge, ligamentum flavum and facet hypertrophy. Thecal sac 6 .5 millimeters. Mild to moderate narrowing of the neural foramina bilaterally Moderate disc bulge L5-S1. Significant encroachment upon the thecal sac is not present. Mild facet hy pertrophy. Mild narrowing of the neural foramina bilaterally No significant abnormal signal within the bones IMPRESSION: Spondylosis L4-5 with mild anterior subluxation. This results in moderate central spinal stenosis
[2023-11-25] MEDS: ENOXAPARIN 40 MG/0.4 ML SQ SCH (20:13)
[2023-11-25 23:47] LABS: Urine Bacteria None Seen /HPF (<20); Urine Bilirubin NEGATIVE (Negative); Urine Blood Trace (Negative); Urine Clarity Clear (Clear); Urine Color Light-Yellow (Yellow); Urine Glucose NEGATIVE (Negative); Urine Protein NEGATIVE (Negative); Urine RBC <5 /HPF (None Seen); Urine Urobilinogen Normal (Normal); Urine pH 6.5 (5.0-7.0)
[2023-11-25 23:48] LABS: Specific Gravity > 1.035 (1.005-1.030)
--- NOTE | 2023-11-26 03:26 | HP ---
Date of Admission: 11/25/2023 Chief Complaint: Back pain and abdominal pain. History Of Present Illness: This is a 68-year-old very pleasant female patient, who has chronic lowe r back pain, came into office today with her . The patient reported that so far she had lower back pain radiating to her left leg in the past, but lately she is having lower back pain radiating to her right leg. Denies any fall or injury. In last few days, she is also complaining of having ri ght lower quadrant pain. No nausea, vomiting, fever. No constipation or diarrhea. No blood in urin e. No urinary complaints. After she was evaluated at office, [facility] problems. Allergies: TO LEVAQUIN CAUSING NAUSEA. Medications: Amlodipine 5 mg daily at bedtime, docusate sodium 100 mg daily, escitalopram 20 mg jessica y, gabapentin 100 mg takes 2 capsules 3 times a day, hydralazine 10 mg 2 times a day, levothyroxine 8 8 mcg daily, hydrochlorothiazide 12.5 mg daily, and losartan 100 mg daily. Review of Systems: Musculoskeletal: As mentioned above. GI: As mentioned above. All other systems reviewed and negative. Past Medical History: Significant for hypothyroidism, impaired fasting glucose, hypertension, hyperl ipidemia, known alcoholic fatty liver disease, diverticulosis, lumbar radiculopathy, anxiety, depress ion, osteopenia. Past Surgical History: Bladder suspension and knee surgery. Also significant for hysterectomy. Social History: Negative for smoking and alcohol use. Family History: Father , had hypertension and heart disease. Mother , had hypertension. Si ster with heart disease, hypertension, and thyroid disorder. Physical Examination: Vital Signs: Blood pressure 138/58, pulse 66, temperature 98.1, respiratory rate 18, weight 216 poun ds, height 63 inches. General: Awake, alert, oriented, not in distress. HEENT: Head atraumatic, normocephalic. Conjunctivae nonerythematous. Sclerae white. Mouth, no thr ush or edema noted. Ears/Nose, no mass, lesion, discharge noted. Neck: Supple. No JVD, lymph nodes, bruit, thyromegaly noted. Lungs: Bilateral good equal air entry. Clear to auscultation. No rhonchi. No rales. Heart: Normal heart sounds, no murmur or gallop. Abdomen: Soft. Bowel sounds normal. No guarding, rigidity, distention. Bowel sounds normoactive. The patient does have tenderness in the right lower quadrant. Extremities: No leg edema. No calf tenderness. Skin: No rash, ulcer, cellulitis. Lymphatics: No lymph node enlargement in neck, supraclavicular, infraclavicular region. Neuro: No focal neurological deficit. Chest: Unremarkable. External Genitalia: Deferred. Rectal: Deferred. CITY EDITOR: No focal neurological deficit, but straight leg raising sign positive in right leg. Laboratory Data: WBC 8.2, hemoglobin 12.2, platelets 254. Sodium , potassium , chloride , bicarb , BUN , creatinine , glucose , li laura function tests , chest x-ray . Impression: 1.Right lower quadrant abdominal pain. 2.Lumbar radiculopathy. 3.Hypertension. 4.Hyperlipidemia. 5.Impaired fasting glucose. 6.Hypothyroidism. 7.Anxiety. 8.Depression. Plan: We will go ahead and admit the patient to hospital for further evaluation and management of th is problem. The patient is appropriate for observation. We will go ahead and give her pain medicati on per order. Follow up on CAT scan of abdomen as well as MRI of lumbar spine and we will give morph ine and Zofran as needed. Home medications will be continued per order. For her hypertension, we wi ll continue antihypertensive medication. Monitor blood pressure and if necessary, adjust medication. We will also get urinalysis and urine culture. Details of treatment discussed with the patient and her . I will see her tomorrow morning for followup. HIREN/MODL Voice ID: [id number]
[2023-11-26] MEDS: LOSARTAN POTASSIUM 50 MG TABLET PO ONE (08:02)
[2023-11-26] MEDS: HYDRALAZINE HCL 10 MG TABLET PO ONE (08:02)
[2023-11-26 08:21] VITALS: BP 149/56; TEMP 98.6
--- NOTE | 2023-11-26 10:01 | RAD REPORT ---
EXAM DESCRIPTION: RAD - Hip Bilateral With Pelvis - 11/26/2023 9:55 am CLINICAL HISTORY: Hip pain FINDINGS: No fracture or dislocation Mild osteoarthritis involves the hips consisting of mild joint space narrowing and subchondral sclero sis. Prominent sclerosis pubic bones near the pubic symphysis may indicate osteitis pubis
[2023-11-26 11:21] VITALS: O2SAT 94
== END 2023-11-26 12:06 | disposition home or self-care (01) ==
LOC: 2ND 13:13
PROVIDERS: ADMIT Internal Medicine; ATTEND Internal Medicine
DX: M54.16 Radiculopathy, lumbar region (principal); R10.31 Right lower quadrant pain; I10 Essential (primary) hypertension; E78.5 Hyperlipidemia, unspecified; E03.9 Hypothyroidism, unspecified; F41.9 Anxiety disorder, unspecified; F32.A Depression, unspecified; R73.01 Impaired fasting glucose
CPT/HCPCS: 85025; 81001; 36415; 83735; 84443; 80053; 74177; 71046; 73521; 72148; Q9967; J1650; J2270 ×4; G0378; G0379

== ENCOUNTER 2024-02-02 05:14 | Emergency (ER) | payer OTHER ==
--- OUTSIDE RECORDS SUMMARY | 2024-02-02 05:17 | XMS REPORT | Continuity of Care Document ---
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 JEFFERY MATHIS UNIT #: [id number]#: [id number] ROOM/BED:: 53 AGE: 64 SEX: F PCP [...] % (Auto) (20.5 - 51.1 %) 21.9 Mathews % (Auto) (1.7 - 9.3 %) 6.8 Eos % (Auto) (0.0 - 6.0 %) 0.9 Baso % (Auto) (0.0 - 2.0 %) 0.3 Neut # (Auto) (1.8 - 7.6 K/mm3) 6.13 Lymph # (Auto) (0.6 - 3.2 K/mm3) 1.9 Mathews # (Auto) (0.3 - 1.1 K/mm3) 0.6 Eos # (Auto) (0.0 - 0.4 K/mm3) 0.1 Baso # (Auto) (0.0 - 0.1 K/mm3) 0.0 Add Manual Diff (CRITERIA DIFF/SCN) NO Urines Urine Color (YEL/STRAW discript) YELLOW Urine Appearance (CLEAR discript) CLEAR Urine pH (5.0 - 7.0 pH UNITS) 6.5 Ur Specific Malone (1.005 - 1.030 SG) <=1.005 Urine Protein [...] 1522 IMPRESSION: Negative noncontrast head CT.Impression By: [email or web address] - Bakari Munoz M.D.CAT SCAN - CT C-SPINE W/O CONT 10/29 1507 Report Impression - Status: SIGNED Entered: 10/29/2019 1522 IMPRESSION: No acute osseous abnormality involving the cervical spine.Loss of cervical lordosis, possibly due to positioning or musclespasm. Impression By: Tram Plascencia M.D.CAT SCAN - CT CHEST W/CONTRAST 10/29 [...] Location: U 19Impression By: John - Placido Arnodl M.D. Lab Imaging StatementLaboratory radiographic studies reviewed and considered in the medical decision-making. Point of Care TestingPulse Oximetry Pulse Ox % 100 On: Room air Interpretation Interpreted by mt, Pulse oximetry normal Time 1327 Portions of [...] Screened, non user Supervising Physician Note Scribe Brenda Holliday, 10/29/19 1336, scribing for and in the presence of Dr. Munoz.Signed By: Brenda Bradshaw, 10/29/19 1336 Harriett Shirley, 10/29/19 1336, scribing for and in the presence of Dr. Munoz.Signed By: Harriett Shirley, 10/29/19 1336 Physician Scribed StatementI personally performed the services described in this documentation and reviewedthe documentation that was dictated to the scribe(s) in my presence, and it accurately records my words and actions. Scar Munoz, 10/29/19 Portions of this section were scribed by Brenda Bradshaw on 10/29/19 at 1418 Portions of this section were scribed by Harriett Shirley on 10/29/19 at 1551 at 0942 RUST #: [id number] OF REPORTWilson N. Jones Regional [facility] department [id number]:35:00L.[id number] ilable for patient [id number]:52:49 [facility]
[2024-02-02] MEDS ORDERED: MORPHINE 4 MG/ML SYR ONE (05:34)
[2024-02-02] MEDS ORDERED: KETOROLAC 30 MG/ML INJ ONE (05:34)
[2024-02-02] MEDS ORDERED: ONDANSETRON 4 MG/2 ML VIAL ONE (05:34)
--- NOTE | 2024-02-02 07:19 | EDPHYS ---
Physician Documentation [facility] Name: Ginger Marquez Age: 68 yrs Sex: Female : 1955 Arrival Date: 02/02/2024 Time: 05:14 Bed 6 Private MD: ED Physician Alireza Sheridan HPI: 02/01 05:26 This 68 yrs old Female presents to ER via Unassigned with complaints of Back sp4 Pain, Leg Pain. 22:00 68-year-old female presents with complaint of left lower back pain with radiation down sp4 the left leg. Pain is chronic with periodic worsening. Historical: - Allergies: 05:38 Bactrim; cm10 05:38 Levaquin; cm10 - PMHx: 05:38 Depression; Diverticulitis; Hypertension; Hypothyroidism; cm10 - PSHx: 05:38 Left knee replacement; cm10 - Immunization history:: Adult Immunizations up to date. - Infectious Disease History:: Denies. - Social history:: Smoking status: Patient denies any tobacco usage or history of. - Family history:: not pertinent. ROS: 22:00 Constitutional: Negative for fever, chills, and weight loss, positive left lower back sp4 pain positive left leg pain 22:00 All other systems are negative, Exam: 22:00 Constitutional: This is a well developed, well nourished patient who is awake, alert, sp4 and in no acute distress. Head/Face: Normocephalic, atraumatic. Eyes: Pupils equal round and reactive to light, extra-ocular motions intact. Lids and lashes normal. Conjunctiva and sclera are not injected. Cornea within normal limits. Periorbital areas with no swelling, redness, or edema. ENT: Nares patent. No nasal discharge, no septal abnormalities noted. Tympanic membranes are normal and external auditory canals are clear. Oropharynx with no redness, swelling, or masses, exudates, or evidence of obstruction, uvula midline. Mucous membranes moist. Neck: Trachea midline, no thyromegaly or masses palpated, and no cervical lymphadenopathy. Supple, full range of motion without nuchal rigidity, or vertebral point tenderness. Chest/axilla: Normal chest wall appearance and motion. Nontender with no deformity. No lesions are appreciated. Cardiovascular: Regular rate and rhythm with a normal S1 and S2. No gallops, murmurs, or rubs. Normal PMI, no JVD. No pulse deficits. Respiratory: Lungs have equal breath sounds bilaterally, clear to auscultation and percussion. No rales, rhonchi or wheezes noted. No increased work of breathing, no retractions or nasal flaring. Abdomen/GI: Soft, with normal bowel sounds. No distension or tympany. No guarding or rebound. No evidence of tenderness throughout. Back: No spinal tenderness. No costovertebral tenderness. Skin: Warm, dry with normal turgor. Normal color with no rashes, no lesions, and no evidence of cellulitis. MS/ Extremity: Pulses equal, no cyanosis. Neurovascular intact. Full, normal range of motion. Neuro: Awake and alert, GCS 15, oriented to person, place, time, and situation. Cranial nerves II-XII grossly intact. Motor strength 5/5 in all extremities. Sensory grossly intact. Psych: Awake, alert, with orientation to person, place and time. Behavior, mood, and affect are within normal limits Vital Signs: 05:34 BP 168 / 82; Pulse 65; Resp 18; Temp 98.5; Pulse Ox 98% on R/A; Weight 117.93 kg; cm10 Height 5 ft. 3 in. ; Pain 10/10; 05:34 Body Mass Index 46.06 (117.93 kg, 160.02 cm) cm10 05:34 Pain Scale: Adult cm10 [place] Coma Score: 22:00 Eye Response: spontaneous(4). Motor Response: obeys commands(6). Verbal Response: sp4 oriented(5). Total: 15. MDM: 05:27 Patient medically screened. sp4 22:00 Differential diagnosis: chronic back pain, Fatigue Fracture. Data reviewed: vital sp4 signs, nurses notes. ED course: Patient improved after medications. Imaging not necessary. Patient managed to ambulate. She is stable for discharge home. No sign of acute paralysis or otherwise spinal radicular compromise. 02/01 05:28 Order name: Saline Lock; Complete Time: 05:54 sp4 Administered Medications: 05:54 Drug: morphine IVP or IV 8 mg IVP once over 4 mins Route: IVP; Infused Over: 4 mins; jw7 Site: left antecubital; 08:33 Follow up: Response: No adverse reaction ph 05:54 Drug: Ketorolac IVP 30 mg IVP once Route: IVP; Site: left antecubital; jw7 08:33 Follow up: Response: No adverse reaction ph 05:54 Drug: Ondansetron IVP 4 mg IVP once; over 2 minutes Route: IVP; Site: left antecubital; jw7 08:33 Follow up: Response: No adverse reaction ph 07:46 Drug: predniSONE PO 60 mg PO once Route: PO; iw 08:33 Follow up: Response: No adverse reaction ph 07:46 Drug: [place] PO 10 mg-325 mg 1 tabs PO once Route: PO; iw 08:33 Follow up: Response: No adverse reaction ph 07:46 Drug: Methocarbamol PO 750 mg PO once Route: PO; iw 08:33 Follow up: Response: No adverse reaction ph Disposition Summary: 02/02/24 07:19 Discharge Ordered Notes: Location: Home sp4 Problem: new sp4 Symptoms: have improved sp4 Condition: Stable sp4 Diagnosis - Lumbago with sciatica, left side sp4 - Acute lower back pain with left sciatica sp4 Followup: sp4 - With: Private Physician - When: 7 - 10 days - Reason: Recheck today's complaints Discharge Instructions: - Discharge Summary Sheet sp4 - Sciatica, [place]me sp4 Forms: - Patient Portal Instructions sp4 Prescriptions: - meloxicam 15 mg Oral tablet - take 1 tablet ORAL route daily PRN pain; 30 tablet; Refills: 0, Product sp4 Selection Permitted - Tramadol 50 mg Oral tablet - take 1 tablet ORAL route every 8 hours as needed; 20 tablet; Refills: 0, sp4 Product Selection Permitted - Prednisone 20 mg Oral Tablet - take 2 tablets ORAL route once daily for 5 days; 10 tablet; Refills: 0, Product sp4 Selection Permitted - methocarbamol 750 mg Oral tablet - take 2 tablets ORAL route every 8 hours for 2 days PRN pain; 60 tablet; sp4 Refills: 0, Product Selection Permitted Signatures: Remedios Gurrola RN RN iw Yoana Macias RN RN jw7 Alireza Sheridan MD MD sp4 Magda Randolph RN RN cm10 Pam Lomeli RN ph
--- NOTE | 2024-02-02 07:19 | ER ---
Nurse's Notes [facility] Name: Ginger Marquez Age: 68 yrs Sex: Female : 1955 Arrival Date: 02/02/2024 Time: 05:14 Bed 6 Private MD: Diagnosis: Lumbago with sciatica, left side;Acute lower back pain with left sciatica Presentation: 02/01 05:34 Chief complaint: Patient states: Left sided back pain that radiates down left leg. Pt cm10 reports that she has been dealing with sciatic issues since August and is scheduled for shots on Friday. Coronavirus screen: Client denies travel out of the [place] in the last 14 days. At this time, the client does not indicate any symptoms associated with coronavirus-19. Ebola Screen: Patient denies travel to an Ebola-affected area in the 21 days before illness onset. No symptoms or risks identified at this time. Initial Sepsis Screen: Does the patient meet any 2 criteria? No. Patient's initial sepsis screen is negative. Does the patient have a suspected source of infection? No. Patient's initial sepsis screen is negative. Risk Assessment: Do you want to hurt yourself or someone else? Patient reports no desire to harm self or others. Onset of symptoms was February 02, 2024. 05:34 Method Of Arrival: Wheelchair cm10 05:34 Acuity: [place] 4 cm10 Triage Assessment: 05:38 General: Appears in no apparent distress. uncomfortable, Behavior is calm, cooperative. cm10 Neuro: No deficits noted. Level of Consciousness is awake, alert, obeys commands, Oriented to person, place, time, situation. Historical: - Allergies: 05:38 Bactrim; cm10 05:38 Levaquin; cm10 - PMHx: 05:38 Depression; Diverticulitis; Hypertension; Hypothyroidism; cm10 - PSHx: 05:38 Left knee replacement; cm10 - Immunization history:: Adult Immunizations up to date. - Infectious Disease History:: Denies. - Social history:: Smoking status: Patient denies any tobacco usage or history of. - Family history:: not pertinent. Screenin:45 [facility] ED Fall Risk Assessment (Adult) History of falling in the last 3 months, jw7 including since admission No falls in past 3 months (0 pts) Confusion or Disorientation No (0 pts) Intoxicated or Sedated No (0 pts) Impaired Gait Yes (1 pt) Mobility Assist Device Used No (0 pt) Altered Elimination No (0 pt) Score/Fall Risk Level 0 - 2 = Low Risk Oriented to surroundings, Maintained a safe environment, Educated pt \T\ family on fall prevention, incl call for assistance when getting out of bed. Abuse screen: Denies threats or abuse. Denies injuries from another. Nutritional screening: No deficits noted. Tuberculosis screening: No symptoms or risk factors identified. Assessment: 05:45 General: Appears in no apparent distress. uncomfortable, Behavior is calm, cooperative, jw7 appropriate for age. Pain: Complains of pain in back Pain radiates to left leg Pain currently is 10 out of 10 on a pain scale. Quality of pain is described as sharp, shooting, pinching, Pain began gradually, Is intermittent. Neuro: Level of Consciousness is awake, alert, obeys commands, Oriented to person, place, time, situation. Cardiovascular: Heart tones S1 S2 present Capillary refill < 3 seconds Clubbing of nail beds is absent JVD is absent Patient's skin is warm and dry. Respiratory: Airway is patent Trachea midline Respiratory effort is even, unlabored, Respiratory pattern is regular, symmetrical, Breath sounds are clear bilaterally. GI: Abdomen is round non-distended, obese, Bowel sounds present X 4 quads. Abd is soft and non tender X 4 quads. : No deficits noted. No signs and/or symptoms were reported regarding the genitourinary system. EENT: No deficits noted. No signs and/or symptoms were reported regarding the EENT system. Derm: Skin is intact, is healthy with good turgor, Skin is dry, Skin is normal, Skin temperature is warm. Musculoskeletal: Circulation, motion, and sensation intact. Range of motion: intact in all extremities. 07:46 Reassessment: pt requested pudding to take with pills. iw Vital Signs: 05:34 BP 168 / 82; Pulse 65; Resp 18; Temp 98.5; Pulse Ox 98% on R/A; Weight 117.93 kg; cm10 Height 5 ft. 3 in. ; Pain 10/10; 05:34 Body Mass Index 46.06 (117.93 kg, 160.02 cm) cm10 05:34 Pain Scale: Adult cm10 Andriy Coma Score: 22:00 Eye Response: spontaneous(4). Motor Response: obeys commands(6). Verbal Response: sp4 oriented(5). Total: 15. ED Course: 05:17 Patient arrived in ED. gm2 05:24 Alireza Sheridan MD is Attending Physician. sp4 05:37 Triage completed. cm10 05:38 Arm band placed on Patient placed in an exam room, on a stretcher. cm10 05:45 Patient has correct armband on for positive identification. Bed in low position. Call jw7 light in reach. Side rails up X2. Provided Education on: Use of Call Light. 05:45 Inserted saline lock: 22 gauge in left antecubital area, using aseptic technique. jw7 05:54 No provider procedures requiring assistance completed. jw7 07:59 Pam Lomeli, RN is Primary Nurse. ph 08:34 IV discontinued, intact, bleeding controlled, No redness/swelling at site. Pressure ph dressing applied. Administered Medications: 05:54 Drug: morphine IVP or IV 8 mg IVP once over 4 mins Route: IVP; Infused Over: 4 mins; jw7 Site: left antecubital; 08:33 Follow up: Response: No adverse reaction ph 05:54 Drug: Ketorolac IVP 30 mg IVP once Route: IVP; Site: left antecubital; jw7 08:33 Follow up: Response: No adverse reaction ph 05:54 Drug: Ondansetron IVP 4 mg IVP once; over 2 minutes Route: IVP; Site: left antecubital; jw7 08:33 Follow up: Response: No adverse reaction ph 07:46 Drug: predniSONE PO 60 mg PO once Route: PO; iw 08:33 Follow up: Response: No adverse reaction ph 07:46 Drug: [place] PO 10 mg-325 mg 1 tabs PO once Route: PO; iw 08:33 Follow up: Response: No adverse reaction ph 07:46 Drug: Methocarbamol PO 750 mg PO once Route: PO; iw 08:33 Follow up: Response: No adverse reaction ph Medication: 05:54 VIS not applicable for this client. jw7 Outcome: 07:19 Discharge ordered by . sp4 08:34 Discharged to home ambulatory, with significant other, ph 08:34 Condition: good 08:34 Discharge instructions given to patient, significant other, Instructed on discharge instructions, follow up and referral plans. medication usage, Demonstrated understanding of instructions, follow-up care, medications, Prescriptions given X 4, 08:34 Patient left the ED. ph Signatures: Remedios Gurrola, RN RN iw Pam Lomeli RN RN ph Yoana Macias RN RN jw7 Alireza Sheridan MD MD sp4 Magda Randolph RN RN cm10 Agnes Robles 2
[2024-02-02] MEDS ORDERED: HYDROCODONE/APAP 10/325 TAB ONE (07:38)
[2024-02-02] MEDS ORDERED: predniSONE 20 MG TAB ONE (07:39)
[2024-02-02] MEDS ORDERED: methocarbamoL 750 MG TAB ONE (07:39)
[2024-02-02 08:45] VITALS: BP 168/82; TEMP 98.5; O2SAT 98
== END 2024-02-02 08:34 | disposition home or self-care (01) ==
LOC: ER 05:14
DX: M54.42 Lumbago with sciatica, left side (principal); Z96.652 Presence of left artificial knee joint; Z88.1 Allergy status to other antibiotic agents
CPT/HCPCS: J7512; J2405; 96374; 96375; 99284

== ENCOUNTER 2024-07-16 20:36 | Emergency (ER) | payer OTHER ==
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
[2024-07-16] MEDS ORDERED: IBUPROFEN 200 MG TAB PO ONE (22:57)
[2024-07-16] MEDS ORDERED: methocarbamoL 750 MG TAB ONE (22:57)
[2024-07-16] MEDS ORDERED: ONDANSETRON 4 MG (ODT) TAB ONE (22:57)
[2024-07-16] MEDS ORDERED: IBUPROFEN 400 MG TAB ONE (22:57)
[2024-07-16] MEDS ORDERED: HYDROCODONE/APAP 5/325 MG TAB ONE (22:58)
--- NOTE | 2024-07-16 23:19 | RAD REPORT ---
EXAM DESCRIPTION: Humerus Left CLINICAL HISTORY: 68 years Female, humerus pain left TECHNIQUE: 2 views COMPARISON: None. FINDINGS: BONES/JOINT: Small focal calcification/ossification subjacent to the greater tuberosity likely repres enting calcific tendinitis and less likely tiny avulsion fracture. Remaining osseous structures are intact without fracture or dislocation. No focal lytic or blastic abnormality. SOFT TISSUES: Unremarkable. No radiopaque foreign body. IMPRESSION: 1. Small focal calcification/ossification subjacent to the greater tuberosity likely representing c alcific tendinitis and less likely tiny avulsion fracture. Correlate with point tenderness. Electronically signed by: Ba Pulliam MD 07/16/2024 10:54 PM CDT RP N Due to temporary technical issues with the PACS/[employer] reporting system, reports are being jaya d by the in-house radiologist without review as a courtesy to ensure prompt reporting the interpreting radiologist is fully responsible for the content of the report. Transcribed Date/Time: 07/16/2024 11:23 PM
--- NOTE | 2024-07-16 23:20 | RAD REPORT ---
EXAM: XR Right Foot Complete, 3 or More Views CLINICAL HISTORY: The patient is 68 years old and is Female; right foot pain TECHNIQUE: Frontal, lateral and oblique views of the right foot. COMPARISON: No relevant prior studies available. FINDINGS: BONES/JOINTS: Fracture involving the head of the fifth metatarsal is noted with mild displacement . Remaining bones of the foot are intact. No dislocation. SOFT TISSUES: Soft tissue swelling of the forefoot is noted. No radiopaque foreign body. IMPRESSION: Fifth metatarsal fracture. Electronically signed by: Bety Waters MD 07/16/2024 10:54 PM CDT RP Due to temporary technical issues with the PACS/[employer] reporting system, reports are being jaya d by the in-house radiologist without review as a courtesy to ensure prompt reporting the interpreting radiologist is fully responsible for the content of the report. Transcribed Date/Time: 07/16/2024 11:20 PM
--- NOTE | 2024-07-16 23:20 | RAD REPORT ---
EXAM: XR Right Tibia and Fibula, 2 Views CLINICAL HISTORY: The patient is 68 years old and is Female; Right leg pain TECHNIQUE: Frontal and lateral views of the right tibia and fibula. COMPARISON: No relevant prior studies available. FINDINGS: BONES/JOINTS: Unremarkable. No acute fracture. No dislocation. SOFT TISSUES: Soft tissue swelling of the mid aspect of the lower leg is noted. No radiopaque f oreign body. IMPRESSION: Soft tissue swelling of the mid aspect of the lower leg is noted. No underlying acute bony abnorm ality. Electronically signed by: Bety Waters MD 07/16/2024 10:53 PM CDT RP Due to temporary technical issues with the PACS/[employer] reporting system, reports are being jaya d by the in-house radiologist without review as a courtesy to ensure prompt reporting the interpreting radiologist is fully responsible for the content of the report. Transcribed Date/Time: 07/16/2024 11:19 PM
--- NOTE | 2024-07-16 23:21 | RAD REPORT ---
CLINICAL HISTORY: Pain from a fall. COMPARISON: None. TECHNIQUE: XR KNEE 1-2 VIEWS LEFT 07/16/2024 9:50 PM CDT FINDINGS: There is no fracture. Total left knee arthroplasty was performed. Soft tissues are unremarkable. IMPRESSION: No acute osseous findings. Electronically signed by: Phan Hargrove MD 07/16/2024 10:57 PM CDT RP Due to temporary technical issues with the PACS/[employer] reporting system, reports are being jaya d by the in-house radiologist without review as a courtesy to ensure prompt reporting the interpreting radiologist is fully responsible for the content of the report. Transcribed Date/Time: 07/16/2024 11:21 PM
--- NOTE | 2024-07-16 23:22 | RAD REPORT ---
EXAM DESCRIPTION: Shoulder Left 2+ Views CLINICAL HISTORY: 68 years Female, PAIN TECHNIQUE: 2 views COMPARISON: None. FINDINGS: Small focal calcification/ossification subjacent to the greater tuberosity likely representing calcif ic tendinitis and less likely tiny avulsion fracture. Remaining osseous structures are intact without fracture or dislocation. Unremarkable acromioclavicular and glenohumeral joints. SOFT TISSUES: Unremarkable. No radiopaque foreign body. IMPRESSION: 1. Small focal calcification/ossification subjacent to the greater tuberosity likely representing c alcific tendinitis and less likely tiny avulsion fracture. Correlate with point tenderness. Electronically signed by: Ba Pulliam MD 07/16/2024 10:55 PM CDT RP N Due to temporary technical issues with the PACS/[employer] reporting system, reports are being jaya d by the in-house radiologist without review as a courtesy to ensure prompt reporting the interpreting radiologist is fully responsible for the content of the report. Transcribed Date/Time: 07/16/2024 11:21 PM
--- NOTE | 2024-07-17 01:09 | ER ---
Nurse's Notes [facility] Name: Ginger Marquez Age: 68 yrs Sex: Female : 1955 Arrival Date: 07/16/2024 Time: 20:36 Bed 7 Private MD: Diagnosis: Right fifth metatarsal fracture without displacement, Right and Left Knee contusion, acute left shoulder contusion, left elbow contusion, acute fall from standing, Presentation: 07/16 21:18 Chief complaint: Patient states: fell last Friday. Left shoulder pain, travels to [facility]. tm6 Both legs hurt, especially right foot. Coronavirus screen: Client denies travel out of the [place] in the last 14 days. Ebola Screen: Patient negative for fever greater than or equal to 101.5 degrees Fahrenheit, and additional compatible Ebola Virus Disease symptoms Patient denies exposure to infectious person. Patient denies travel to an Ebola-affected area in the 21 days before illness onset. No symptoms or risks identified at this time. Initial Sepsis Screen: Does the patient meet any 2 criteria? No. Patient's initial sepsis screen is negative. Does the patient have a suspected source of infection? No. Patient's initial sepsis screen is negative. Risk Assessment: Do you want to hurt yourself or someone else? Patient reports no desire to harm self or others. Onset of symptoms was July 11, 2024. 21:18 Acuity: [place] 4 tm6 21:18 Method Of Arrival: Wheelchair tm6 Triage Assessment: 21:18 General: Appears in no apparent distress. Behavior is calm, cooperative. General: tm6 Appears uncomfortable. Pain: Complains of pain in anterior aspect of left shoulder, posterior aspect of left shoulder, right leg and left leg Pain currently is 8 out of 10 on a pain scale. Pain began Friday. EENT: No signs and/or symptoms were reported regarding the EENT system. Neuro: Level of Consciousness is awake, alert, obeys commands, Oriented to person, place, time, situation. Cardiovascular: Patient's skin is warm and dry. Respiratory: Airway is patent Respiratory effort is even, unlabored, Respiratory pattern is regular, symmetrical. GI: No signs and/or symptoms were reported involving the gastrointestinal system. Abdomen is round non-distended. : No signs and/or symptoms were reported regarding the genitourinary system. Derm: No signs and/or symptoms reported regarding the dermatologic system. Musculoskeletal: Reports pain in anterior aspect of left shoulder, posterior aspect of left shoulder, right leg and left leg since Friday. Pain is 8 out of 10 on a pain scale. Historical: - Allergies: 21:18 Bactrim; tm6 21:18 Levaquin; tm6 - PMHx: 21:18 Depression; Diverticulitis; Hypertension; Hypothyroidism; tm6 - PSHx: 21:18 Left knee replacement; tm6 21:18 Total abdominal hysterectomy; tm6 - Immunization history:: Client reports having NOT received the Covid vaccine. - Infectious Disease History:: Denies. - Social history:: Smoking status: Patient denies any tobacco usage or history of. Patient/guardian denies using alcohol. - Family history:: not pertinent. Screenin:06 [facility] ED Fall Risk Assessment (Adult) History of falling in the last 3 months, tm6 including since admission Yes- single mechanical fall (1 pt) Confusion or Disorientation No (0 pts) Intoxicated or Sedated No (0 pts) Impaired Gait Yes (1 pt) Mobility Assist Device Used Yes (1 pt) Altered Elimination No (0 pt) Score/Fall Risk Level 3 or more points = High Risk Oriented to surroundings, Maintained a safe environment, Educated pt \T\ family on fall prevention, incl call for assistance when getting out of bed. Abuse screen: Denies threats or abuse. Denies injuries from another. Nutritional screening: No deficits noted. Tuberculosis screening: No symptoms or risk factors identified. Assessment: 23:06 Reassessment: see triage assessment. tm6 07/17 01:26 Reassessment: Patient appears in no apparent distress at this time. No changes from vc1 previously documented assessment. Patient and/or family updated on plan of care and expected duration. Pain level reassessed. Patient is alert, oriented x 3, equal unlabored respirations, skin warm/dry/pink. Vital Signs: 07/16 21:17 Pulse 63; Resp 19; Temp 96.8(TE); Pulse Ox 97% on R/A; Weight 100.7 kg; Height 5 ft. 3 tm6 in. ; Pain 8/10; 21:18 BP 148 / 65; MAP 90 mmHg; tm6 23:06 BP 175 / 60; Pulse 59; Resp 20; Pulse Ox 98% on R/A; MAP 93 mmHg; Pain 07/15; tm6 07/17 00:00 BP 182 / 62; Pulse 70; Resp 20; Pulse Ox 97% ; vc1 01:00 BP 150 / 75; Pulse 71; Resp 18; Pulse Ox 98% ; vc1 07/16 21:17 Body Mass Index 39.33 (100.70 kg, 160.02 cm) tm6 07/16 21:17 Pain Scale: Adult tm6 23:06 Pain Scale: Adult tm6 Hobgood Coma Score: 05:34 Eye Response: spontaneous(4). Motor Response: obeys commands(6). Verbal Response: sp4 oriented(5). Total: 15. ED Course: 07/16 20:39 Patient arrived in ED. jj6 20:45 Alireza Sheridan MD is Attending Physician. sp4 21:18 Arm band placed on right wrist. tm6 21:20 Triage completed. tm6 22:38 Humerus Left XRAY In Process Unspecified. EDMS 22:38 Tib Fib Right XRAY In Process Unspecified. EDMS 22:42 Foot Right 3 View XRAY In Process Unspecified. EDMS 22:42 Knee Left 2 View XRAY In Process Unspecified. EDMS 22:42 Shoulder Left 2+ Views In Process Unspecified. EDMS 23:06 Patient has correct armband on for positive identification. Bed in low position. Call tm6 light in reach. Side rails up X 1. Provided Education on: use of call mesa. Client placed on continuous cardiac and pulse oximetry monitoring. NIBP monitoring applied. Pulse ox on. NIBP on. Door closed. Noise minimized. Warm blanket given. 23:08 NEY ESCOBAR, RN is Primary Nurse. dd2 07/17 01:04 García Paulino MD is Referral Physician. sp4 01:50 No provider procedures requiring assistance completed. Patient did not have IV access dd2 during this emergency room visit. Ortho shoe applied to right foot. Sling applied to left arm. Administered Medications: 07/16 23:05 Drug: Methocarbamol PO 750 mg PO once Route: PO; tm6 23:35 Follow up: Response: No adverse reaction dd2 23:05 Drug: Ibuprofen PO 600 mg PO once Route: PO; tm6 23:35 Follow up: Response: No adverse reaction dd2 23:06 Drug: HYDROcodone-acetaminophen PO 5 mg-325 mg 2 tabs PO once Route: PO; tm6 23:36 Follow up: Response: No adverse reaction dd2 23:06 Drug: Ondansetron PO 4 mg PO once Route: PO; tm6 23:36 Follow up: Response: No adverse reaction dd2 07/17 01:50 Drug: HYDROcodone-acetaminophen PO 5 mg-325 mg 1 tabs PO once Route: PO; dd2 01:53 Follow up: Response: Medication administered at discharge. dd2 Medication: 07/16 23:06 VIS not applicable for this client. tm6 Outcome: 07/17 01:08 Discharge ordered by . sp4 01:50 Discharged to home via wheelchair, dd2 01:50 Condition: stable 01:50 Discharge instructions given to patient, family, Instructed on discharge instructions, follow up and referral plans. medication usage, Demonstrated understanding of instructions, follow-up care, medications, Prescriptions given X 2, 01:52 Patient left the ED. dd2 Signatures: Dispatcher [employer] EDMS Jannette [email or web address] Caterina Bynum RN RN vc1 Alireza Sheridan MD MD sp4 Jessica Ibarra RN RN tm6 NEY ESCOBAR RN RN dd2
--- NOTE | 2024-07-17 01:09 | EDPHYS ---
Physician Documentation [facility] Name: Ginger Marquez Age: 68 yrs Sex: Female : 1955 Arrival Date: 07/16/2024 Time: 20:36 Bed 7 Private MD: ED Physician Alireza Sheridan HPI: 07/16 20:45 This 68 yrs old Female presents to ER via Unassigned with complaints of Fall sp4 Injury, Shoulder Injury. 07/17 05:33 68-year-old female presents with complaint of fall. sp4 05:34 Patient reports fall 6 days ago with now pain in the left shoulder also left humerus sp4 left upper arm, also pain bilateral knees and pain in the right foot right lower leg.. Historical: - Allergies: 07/16 21:18 Bactrim; tm6 21:18 Levaquin; tm6 - PMHx: 21:18 Depression; Diverticulitis; Hypertension; Hypothyroidism; tm6 - PSHx: 21:18 Left knee replacement; tm6 21:18 Total abdominal hysterectomy; tm6 - Immunization history:: Client reports having NOT received the Covid vaccine. - Infectious Disease History:: Denies. - Social history:: Smoking status: Patient denies any tobacco usage or history of. Patient/guardian denies using alcohol. - Family history:: not pertinent. ROS: 07/17 05:34 Constitutional: Negative for fever, chills, and weight loss, positive for left shoulder sp4 pain left upper arm pain, positive for bilateral knee pain, positive for right lower leg and right foot pain. All other systems are negative, Exam: 05:34 Constitutional: This is a well developed, well nourished patient who is awake, alert, sp4 and in no acute distress. Head/Face: Normocephalic, atraumatic. Eyes: Pupils equal round and reactive to light, extra-ocular motions intact. Lids and lashes normal. Conjunctiva and sclera are not injected. Cornea within normal limits. Periorbital areas with no swelling, redness, or edema. ENT: Nares patent. No nasal discharge, no septal abnormalities noted. Tympanic membranes are normal and external auditory canals are clear. Oropharynx with no redness, swelling, or masses, exudates, or evidence of obstruction, uvula midline. Mucous membranes moist. Neck: Trachea midline, no thyromegaly or masses palpated, and no cervical lymphadenopathy. Supple, full range of motion without nuchal rigidity, or vertebral point tenderness. Chest/axilla: Normal chest wall appearance and motion. Nontender with no deformity. No lesions are appreciated. Cardiovascular: Regular rate and rhythm with a normal S1 and S2. No gallops, murmurs, or rubs. Normal PMI, no JVD. No pulse deficits. Respiratory: Lungs have equal breath sounds bilaterally, clear to auscultation and percussion. No rales, rhonchi or wheezes noted. No increased work of breathing, no retractions or nasal flaring. Abdomen/GI: Soft, with normal bowel sounds. No distension or tympany. No guarding or rebound. No evidence of tenderness throughout. Back: No spinal tenderness. No costovertebral tenderness. Skin: Warm, dry with normal turgor. Normal color with no rashes, no lesions, and no evidence of cellulitis. MS/ Extremity: Pulses equal, no cyanosis. Neurovascular intact. Full, normal range of motion. Positive pain tenderness left shoulder left upper arm, no deformity, positive pain and tenderness right lateral foot and discoloration of the right lateral foot. Neuro: Awake and alert, GCS 15, oriented to person, place, time, and situation. Cranial nerves II-XII grossly intact. Motor strength 5/5 in all extremities. Sensory grossly intact. Psych: Awake, alert, with orientation to person, place and time. Behavior, mood, and affect are within normal limits Vital Signs: 07/16 21:17 Pulse 63; Resp 19; Temp 96.8(TE); Pulse Ox 97% on R/A; Weight 100.7 kg; Height 5 ft. 3 tm6 in. ; Pain 8/10; 21:18 BP 148 / 65; MAP 90 mmHg; tm6 23:06 BP 175 / 60; Pulse 59; Resp 20; Pulse Ox 98% on R/A; MAP 93 mmHg; Pain 10/10; tm6 07/17 00:00 BP 182 / 62; Pulse 70; Resp 20; Pulse Ox 97% ; vc1 01:00 BP 150 / 75; Pulse 71; Resp 18; Pulse Ox 98% ; vc1 07/16 21:17 Body Mass Index 39.33 (100.70 kg, 160.02 cm) tm6 07/16 21:17 Pain Scale: Adult tm6 23:06 Pain Scale: Adult tm6 Andriy Coma Score: 05:34 Eye Response: spontaneous(4). Motor Response: obeys commands(6). Verbal Response: sp4 oriented(5). Total: 15. Procedures: 05:43 Splinting: Splint applied to right calf, right Achilles and right heel using Ortho 3D sp4 boot, applied by myself. Examined by me, post splint application: neurovascular intact, 2+ distal pulses palpable, brisk capillary refill noted, Patient tolerated well, Patient states she has a walker at home. Advised Ortho boot for the next 6 weeks . MDM: 07/16 20:46 Patient medically screened. sp4 07/17 05:38 Differential diagnosis: abrasion, closed head injury, contusion, fracture, laceration, sp4 multiple trauma, sprain, strain. Data reviewed: vital signs, nurses notes, radiologic studies, plain films. Consideration of Admission/Observation Escalation of care including admission/observation considered. ED course: Ms. Marquez was x-rayed. There is right fifth metatarsal fracture. Left orthopedic boot was applied. Left arm shoulder sling was applied. Advised follow-up with orthopedist. 6 weeks of right Ortho boot advised . 07/16 21:49 Order name: Humerus Left XRAY sp4 07/16 21:49 Order name: Tib Fib Right XRAY sp4 07/16 21:49 Order name: Foot Right 3 View XRAY sp4 07/16 21:50 Order name: Knee Left 2 View XRAY sp4 07/16 22:38 Order name: Shoulder Left 2+ Views EDMS 07/17 01:03 Order name: Sling; Complete Time: 01:50 sp4 07/17 01:04 Order name: Orthopedic shoe: Right Lower leg Ortho boot applied by the MD ; Complete sp4 Time: 01:28 Administered Medications: 07/16 23:05 Drug: Methocarbamol PO 750 mg PO once Route: PO; tm6 23:35 Follow up: Response: No adverse reaction dd2 23:05 Drug: Ibuprofen PO 600 mg PO once Route: PO; tm6 23:35 Follow up: Response: No adverse reaction dd2 23:06 Drug: HYDROcodone-acetaminophen PO 5 mg-325 mg 2 tabs PO once Route: PO; tm6 23:36 Follow up: Response: No adverse reaction dd2 23:06 Drug: Ondansetron PO 4 mg PO once Route: PO; tm6 23:36 Follow up: Response: No adverse reaction dd2 07/17 01:50 Drug: HYDROcodone-acetaminophen PO 5 mg-325 mg 1 tabs PO once Route: PO; dd2 01:53 Follow up: Response: Medication administered at discharge. dd2 Disposition Summary: 07/17/24 01:08 Discharge Ordered Problem: new sp4 Symptoms: have improved sp4 Condition: Stable sp4 Diagnosis - Right fifth metatarsal fracture without displacement, Right and Left Knee sp4 contusion, acute left shoulder contusion, left elbow contusion, acute fall from standing, Followup: sp4 - With: García Paulino MD - When: 10 - 14 days - Reason: Recheck today's complaints Discharge Instructions: - Discharge Summary Sheet sp4 - Metatarsal Fracture sp4 Forms: - Patient Portal Instructions sp4 Prescriptions: - acetaminophen-codeine 300-60 mg Oral tablet - take 1 tablet ORAL route every 8 hours PRN pain; 20 tablet; Refills: 0, Product sp4 Selection Permitted - methocarbamol 750 mg Oral tablet - take 2 tablets ORAL route every 8 hours for 3 days PRN pain; 30 tablet; sp4 Refills: 0, Product Selection Permitted Signatures: Dispatcher [employer] Alireza Angeles MD MD sp4 Jessica Ibarra RN RN tm6 NEY ESCOBAR RN RN dd2 Corrections: (The following items were deleted from the chart) 07/16 22:07 21:48 Shoulder Left 2 View+RAD.RAD.BRZ ordered. EDMS EDMS 22:07 21:49 Elbow Left 3 View+RAD.RAD.BRZ ordered. EDMS EDMS 22:07 21:50 Knee Right 2 View+RAD.RAD.BRZ ordered. EDMS EDMS 22:36 22:36 Shoulder Left W Comparison ordered. EDMS EDMS
[2024-07-17] MEDS ORDERED: HYDROCODONE/APAP 5/325 MG TAB ONE (01:35)
[2024-07-17 06:21] VITALS: TEMP 96.8
[2024-07-17 06:27] VITALS: BP 150/75; O2SAT 98
== END 2024-07-17 01:52 | disposition home or self-care (01) ==
LOC: ER 20:36
DX: S92.354A Nondisplaced fracture of fifth metatarsal bone, right foot, initial encounter for closed fracture (principal); S80.02XA Contusion of left knee, initial encounter; S80.01XA Contusion of right knee, initial encounter; S40.012A Contusion of left shoulder, initial encounter; S50.02XA Contusion of left elbow, initial encounter; W18.30XA Fall on same level, unspecified, initial encounter; Z96.652 Presence of left artificial knee joint
CPT/HCPCS: 73630; 73060; 73030; 73560; 73590; Q0162

== ENCOUNTER 2024-08-10 05:20 | Emergency (ER) | payer OTHER ==
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
[2024-08-10] MEDS ORDERED: MORPHINE 4 MG/ML SYR ONE (06:23)
[2024-08-10] MEDS ORDERED: DICYCLOMINE HCL 20 MG/2 ML AMP IM ONE (06:23)
[2024-08-10] MEDS ORDERED: ONDANSETRON 4 MG/2 ML VIAL ONE (06:23)
[2024-08-10] MEDS ORDERED: FAMOTIDINE 20 MG/2 ML VIAL IV ONE (06:24)
[2024-08-10] MEDS ORDERED: NA CHLORIDE 0.9% 1,000 ML ONE (06:24)
[2024-08-10 06:44] LABS: Absolute Eosinophils 0.1 K/uL (0-0.5); Absolute Lymphocytes (CBC) 0.3 K/uL (0.7-4.9); Absolute Monocytes 0.4 K/uL (0.1-1.3); Absolute Neutrophil 8.4 K/uL (1.8-8.0); Basophils % 0.5 % (0-1.3); Hematocrit 39.1 % (36.0-45.0); Hemoglobin 13.2 g/dL (12.0-15.0); Lymphocytes % 3.6 % (15.3-44.8); MCH 30.8 pg (27.0-35.0); MCHC 33.7 g/dL (32.0-36.0); MCV 91.6 fL (80-100); MPV 8.8 fL (7.6-11.3); Neutrophils % 90.9 % (41.7-73.7); Platelets 269 thou/uL (152-406); RBC Red Blood Cell Count 4.27 M/uL (3.86-4.86); Red Cell Distribution Width 13.7 % (12.1-15.2)
[2024-08-10 07:07] LABS: Albumin 3.1 g/dL (3.4-5.0); Albumin/Globulin Ratio 0.7 (1.1-1.8); Anion Gap 8.4 mEq/L (5.0-15.0); Bilirubin Total 0.6 mg/dL (0.2-1.0); Globulin 4.3 g/dL (2.3-3.5); Potassium 3.4 mEq/L (3.5-5.1); Protein, Total 7.4 g/dL (6.4-8.2)
--- NOTE | 2024-08-10 07:30 | RAD REPORT ---
EXAMINATION: CT ABDOMEN AND PELVIS WITH CONTRAST CLINICAL INDICATION: Abdominal pain TECHNIQUE: CT abdomen and pelvis was performed, after the administration of 100 cc Isovue-300.. Sagit tj and coronal reconstructions were obtained. One or more of the following dose reduction techniques were used: Automated exposure control, adjustment of the mA and kV according to patient si ze, and iterative reconstruction. Unless otherwise specified, incidental findings do not require dedicated imaging follow-up. [id number]. Oral contrast was not given which limits evaluation of bowel and appendix. COMPARISON: November 2023 FINDINGS: Fatty liver. Multiple gallstones. The spleen, pancreas, adrenals and kidneys appear unremarkable. Hysterectomy. No adnexal mass. Diverticula stem from the colon. There is mild to moderate stranding adjacent to the sigmoid colon wi th a thickened wall. No free air. No abscess Small umbilical hernia IMPRESSION: Mild to moderate sigmoid diverticulitis
--- NOTE | 2024-08-10 07:48 | ER ---
Nurse's Notes [facility] Name: Gigner Marquez Age: 69 yrs Sex: Female : 1955 Arrival Date: 08/10/2024 Time: 05:20 Bed 8 Private MD: Zaheer Abel Diagnosis: Uncomplicated diverticulitis Presentation: 08/10 06:13 Chief complaint: Patient states: lower abdominal/pelvic pain and spasms X1 week. lg3 Coronavirus screen: Client denies travel out of the [place] in the last 14 days. At this time, the client does not indicate any symptoms associated with coronavirus-19. Ebola Screen: No symptoms or risks identified at this time. Initial Sepsis Screen: Does the patient meet any 2 criteria? No. Patient's initial sepsis screen is negative. Does the patient have a suspected source of infection? No. Patient's initial sepsis screen is negative. Risk Assessment: Do you want to hurt yourself or someone else? Patient reports no desire to harm self or others. Onset of symptoms is unknown. 06:13 Method Of Arrival: Wheelchair lg3 06:13 Acuity: [place] 3 lg3 Triage Assessment: 06:15 General: Appears in no apparent distress. uncomfortable, Behavior is calm, cooperative. lg3 Pain: Complains of pain in right lower quadrant, left lower quadrant and pelvis. EENT: No deficits noted. No signs and/or symptoms were reported regarding the EENT system. Neuro: No deficits noted. Watson Agitation-Sedation Scale (RASS): 0 - Alert and Calm Level of Consciousness is awake, alert, obeys commands, Oriented to person, place, time, situation. Cardiovascular: No deficits noted. Denies chest pain, shortness of breath, Capillary refill < 3 seconds Clubbing of nail beds is absent JVD is absent Patient's skin is warm and dry. Respiratory: No deficits noted. Airway is patent Respiratory effort is even, unlabored, Respiratory pattern is regular, symmetrical. GI: Abdomen is round non-distended, obese, Reports lower abdominal pain, cramping, nausea. : Reports burning with urination, inability to void, urgency, urinary frequency. Derm: No deficits noted. No signs and/or symptoms reported regarding the dermatologic system. Skin is intact, is healthy with good turgor, Skin is dry, Skin is normal, Skin temperature is warm. Musculoskeletal: No deficits noted. No signs and/or symptoms reported regarding the musculoskeletal system. Circulation, motion, and sensation intact. Range of motion: intact in all extremities. Historical: - Allergies: 06:15 Bactrim; lg3 06:15 Levaquin; lg3 - PMHx: 06:15 Depression; Hypertension; Diverticulitis; Hypothyroidism; lg3 - PSHx: 06:15 Left knee replacement; Total abdominal hysterectomy; lg3 - Immunization history:: Adult Immunizations up to date. - Infectious Disease History:: Denies. - Social history:: Smoking status: Patient denies any tobacco usage or history of. Patient/guardian denies using alcohol, street drugs. Screenin:18 [facility] ED Fall Risk Assessment (Adult) History of falling in the last 3 months, lg3 including since admission No falls in past 3 months (0 pts) Confusion or Disorientation No (0 pts) Intoxicated or Sedated No (0 pts) Impaired Gait No (0 pts) Mobility Assist Device Used Yes (1 pt) Altered Elimination No (0 pt) Score/Fall Risk Level 0 - 2 = Low Risk Oriented to surroundings, Maintained a safe environment, Educated pt \T\ family on fall prevention, incl call for assistance when getting out of bed, Assessed \T\ reinforced patient's understanding of fall precautions. Abuse screen: Denies threats or abuse. Denies injuries from another. Nutritional screening: No deficits noted. Tuberculosis screening: No symptoms or risk factors identified. Assessment: 06:18 General: see triage assessment. lg3 07:40 Reassessment: Patient appears in no apparent distress at this time. Patient and/or ph family updated on plan of care and expected duration. Pain level reassessed. Patient is alert, oriented x 3, equal unlabored respirations, skin warm/dry/pink. 11:15 Reassessment: Pt called stating that she is very itchy after taking the Cipro. kb3 Augmentin called in as recommended by Dr. Hunt. Vital Signs: 06:13 BP 177 / 55; Pulse 72; Resp 17 S; Temp 98.1(O); Pulse Ox 98% on R/A; Weight 99.79 kg lg3 (R); Height 5 ft. 3 in. (R); 06:50 BP 153 / 52; Pulse 70; Resp 18; Temp 98.1; Pulse Ox 98% ; Pain 5/10; bm8 07:50 BP 161 / 55; Pulse 74; Resp 15; Pulse Ox 96% on R/A; ko1 06:13 Body Mass Index 38.97 (99.79 kg, 160.02 cm) lg3 06:50 Pain Scale: Adult bm8 Andriy Coma Score: 06:50 Eye Response: spontaneous(4). Motor Response: obeys commands(6). Verbal Response: bm8 oriented(5). Total: 15. ED Course: 05:26 Patient arrived in ED. gm2 05:26 Zaheer Abel MD is Private Physician. gm2 06:02 Alireza Sheridan MD is Attending Physician. sp4 06:13 Trupti Bolanos RN is Primary Nurse. lg3 06:15 Triage completed. lg3 06:15 Arm band placed on right wrist. lg3 06:18 Patient has correct armband on for positive identification. Placed in gown. Bed in low lg3 position. Call light in reach. Side rails up X 1. Client placed on continuous cardiac and pulse oximetry monitoring. NIBP monitoring applied. Door closed. Noise minimized. Warm blanket given. Pillow given. Family accompanied patient. 06:34 Initial lab(s) drawn, by ED staff, sent to lab. Inserted saline lock: 20 gauge in right lg3 antecubital area, using aseptic technique. Blood collected. Flushed with 10 mL NS. 06:50 Provided Education on:. bm8 06:50 No provider procedures requiring assistance completed. Patient maintains SpO2 bm8 saturation greater than 95% on room air. 07:09 Attending Physician role handed off by Alireza Sheridan MD rt 07:09 Nahum Hunt MD is Attending Physician. rt 08:16 IV discontinued, intact, bleeding controlled, No redness/swelling at site. Pressure ph dressing applied. Administered Medications: 06:34 Drug: Dicyclomine IM 20 mg IM once Route: IM; Site: left deltoid; lg3 07:04 Follow up: Response: No adverse reaction ko1 06:35 Drug: Famotidine IVP 20 mg IVP once; dilute with 10 mL 0.9% NaCl; give over 2 minutes lg3 Route: IVP; Site: right antecubital; 06:50 Follow up: Response: No adverse reaction ko1 06:35 Drug: Ondansetron IVP 4 mg IVP once; over 2 minutes Route: IVP; Site: right antecubital;lg3 06:50 Follow up: Response: No adverse reaction ko1 06:35 Drug: morphine IVP or IV 4 mg IVP once over 4 mins Route: IVP; Infused Over: 4 mins; lg3 Site: right antecubital; 06:50 Follow up: Response: No adverse reaction ko1 06:35 Drug: NS 0.9% IV 1000 ml IV at 1 bolus Per protocol; to be given as a bolus over 60 lg3 minutes Route: IV; Rate: 1 bolus; Site: right antecubital; 07:49 Follow up: Response: No adverse reaction; IV Status: Completed infusion; IV Intake: ko1 1000ml Medication: 06:50 VIS not applicable for this client. bm8 Intake: 07:49 IV: 1000ml; Total: 1000ml. ko1 Outcome: 07:47 Discharge ordered by . rt 08:15 Discharged to home via wheelchair, with significant other, ph 08:15 Condition: good 08:15 Discharge instructions given to patient, significant other, Instructed on discharge instructions, follow up and referral plans. medication usage, Demonstrated understanding of instructions, follow-up care, medications, Prescriptions given X 3, 08:16 Patient left the ED. ph Signatures: Pam Lomeli, RN RN ph Trupti Bolanos, RN RN lg3 Brenda Kwok, [facility] kb3 Chen Moreno, [facility] RN ko1 Nahum Hunt MD MD rt Alireza Sheridan MD MD sp4 Agnes Robles 2 Donnie Rao RN RN bm8
--- NOTE | 2024-08-10 07:48 | EDPHYS ---
Physician Documentation [facility] Name: Ginger Marquez Age: 69 yrs Sex: Female : 1955 Arrival Date: 08/10/2024 Time: 05:20 Bed 8 Private MD: Zaheer Abel ED Physician Nahum Hunt HPI: 08/10 06:02 This 69 yrs old Female presents to ER via Unassigned with complaints of sp4 Abdominal Pain, Back Pain. Historical: - Allergies: 06:15 Bactrim; lg3 06:15 Levaquin; lg3 - PMHx: 06:15 Depression; Hypertension; Diverticulitis; Hypothyroidism; lg3 - PSHx: 06:15 Left knee replacement; Total abdominal hysterectomy; lg3 - Immunization history:: Adult Immunizations up to date. - Infectious Disease History:: Denies. - Social history:: Smoking status: Patient denies any tobacco usage or history of. Patient/guardian denies using alcohol, street drugs. ROS: 08:18 Constitutional: Negative for fever, chills, and weight loss, Cardiovascular: Negative rt for chest pain, palpitations, and edema, Respiratory: Negative for shortness of breath, cough, wheezing, and pleuritic chest pain, MS/Extremity: Negative for injury and deformity, Skin: Negative for injury, rash, and discoloration, Neuro: Negative for headache, weakness, numbness, tingling, and seizure, 08:18 Abdomen/GI: Positive for abdominal pain, Negative for vomiting, Exam: 08:18 Constitutional: This is a well developed, well nourished patient who is awake, alert, rt and in no acute distress. Head/Face: Normocephalic, atraumatic. Chest/axilla: Normal chest wall appearance and motion. Nontender with no deformity. No lesions are appreciated. Cardiovascular: Regular rate and rhythm with a normal S1 and S2. No gallops, murmurs, or rubs. Normal PMI, no JVD. No pulse deficits. Respiratory: Lungs have equal breath sounds bilaterally, clear to auscultation and percussion. No rales, rhonchi or wheezes noted. No increased work of breathing, no retractions or nasal flaring. Skin: Warm, dry with normal turgor. Normal color with no rashes, no lesions, and no evidence of cellulitis. MS/ Extremity: Pulses equal, no cyanosis. Neurovascular intact. Full, normal range of motion. 08:18 Abdomen/GI: tenderness to suprapubic region with no guarding, rebound, Vital Signs: 06:13 BP 177 / 55; Pulse 72; Resp 17 S; Temp 98.1(O); Pulse Ox 98% on R/A; Weight 99.79 kg lg3 (R); Height 5 ft. 3 in. (R); 06:50 BP 153 / 52; Pulse 70; Resp 18; Temp 98.1; Pulse Ox 98% ; Pain 5/10; bm8 07:50 BP 161 / 55; Pulse 74; Resp 15; Pulse Ox 96% on R/A; ko1 06:13 Body Mass Index 38.97 (99.79 kg, 160.02 cm) lg3 06:50 Pain Scale: Adult bm8 Andriy Coma Score: 06:50 Eye Response: spontaneous(4). Motor Response: obeys commands(6). Verbal Response: bm8 oriented(5). Total: 15. MDM: 06:13 Medical Screening Exam initiated sp4 08:18 Differential diagnosis: diverticulitis, uti. Data reviewed: vital signs, nurses notes, rt lab test result(s), radiologic studies. Consideration of Admission/Observation Escalation of care including admission/observation considered. I considered the following discharge prescriptions or medication management in the emergency department Medications were administered in the Emergency Department. See MAR. Independent interpretation of the following test(s) in the Emergency Department CT Scan: My interpretation is no bowel obstruction. Care significantly affected by the following chronic conditions: Hypertension. Counseling: I had a detailed discussion with the patient and/or guardian regarding the historical points, exam findings, and any diagnostic results supporting the discharge/admit diagnosis, lab results, radiology results, the need for outpatient follow up. Response to treatment: the patient's symptoms have markedly improved after treatment. 08/10 06:48 Order name: CBC with Automated Diff; Complete Time: 07:08 EDMS 08/10 07:07 Order name: Comprehensive Metabolic Panel; Complete Time: 07:08 EDMS 08/10 07:07 Order name: Lipase; Complete Time: 07:08 EDMS 08/10 07:30 Order name: CT; Complete Time: 07:36 EDMS 08/10 06:14 Order name: IV Saline Lock; Complete Time: 06:33 sp4 08/10 06:14 Order name: Labs collected and sent; Complete Time: 33 sp4 Administered Medications: 06:34 Drug: Dicyclomine IM 20 mg IM once Route: IM; Site: left deltoid; lg3 07:04 Follow up: Response: No adverse reaction ko1 06:35 Drug: Famotidine IVP 20 mg IVP once; dilute with 10 mL 0.9% NaCl; give over 2 minutes lg3 Route: IVP; Site: right antecubital; 06:50 Follow up: Response: No adverse reaction ko1 06:35 Drug: Ondansetron IVP 4 mg IVP once; over 2 minutes Route: IVP; Site: right antecubital;lg3 06:50 Follow up: Response: No adverse reaction ko1 06:35 Drug: morphine IVP or IV 4 mg IVP once over 4 mins Route: IVP; Infused Over: 4 mins; lg3 Site: right antecubital; 06:50 Follow up: Response: No adverse reaction ko1 06:35 Drug: NS 0.9% IV 1000 ml IV at 1 bolus Per protocol; to be given as a bolus over 60 lg3 minutes Route: IV; Rate: 1 bolus; Site: right antecubital; 07:49 Follow up: Response: No adverse reaction; IV Status: Completed infusion; IV Intake: ko1 1000ml Disposition Summary: 08/10/24 07:47 Discharge Ordered Notes: Location: Home rt Problem: new rt Symptoms: have improved rt Condition: Stable rt Diagnosis - Uncomplicated diverticulitis rt Followup: rt - With: Private Physician - When: 2 - 3 days - Reason: Discharge Instructions: - Discharge Summary Sheet rt - Diverticulitis rt Forms: - Medication Reconciliation Form rt - Antibiotic Education rt - Prescription Opioid Use rt - Patient Portal Instructions rt - Leadership Thank You Letter rt Prescriptions: - ondansetron 4 mg Oral Tablet,disintegrating - take 1 tablet ORAL route every 6 hours as needed for nausea; 18 tablet; rt Refills: 0, Product Selection Permitted - Flagyl 500 mg Oral tablet - take 1 tablet ORAL route every 8 hours for 7 days; 21 tablet; Refills: 0, rt Product Selection Permitted - Cipro 500 mg Oral Tablet - take 1 tablet ORAL route every 12 hours for 7 days; 14 tablet; Refills: 0, rt Product Selection Permitted Signatures: Dispatcher [employer] Trupti Lindquist RN RN lg3 Nahum Hunt MD MD rt Alireza Sheridan MD MD sp4 Chen Moreno RN ko1
[2024-08-10 08:55] VITALS: TEMP 98.1
[2024-08-10 09:06] VITALS: BP 161/55; O2SAT 96
[2024-08-10 09:07] LABS: Blood Morphology Comment NOT SEEN (NOT SEEN); Platelet Estimate ADEQ; White Blood Cell Scan OK (OK)
== END 2024-08-10 08:16 | disposition home or self-care (01) ==
LOC: ER 05:20
DX: K57.32 Diverticulitis of large intestine without perforation or abscess without bleeding (principal)
CPT/HCPCS: 85025; 36415; 83690; 80053; 74177; Q9967; J0500; J2405; J7030

== ENCOUNTER 2025-07-30 18:03 | Emergency (ER) | payer OTHER ==
[2025-07-30] MEDS ORDERED: ASPIRIN 81 MG CHEWABLE TABLET ONE (18:27)
[2025-07-30] MEDS ORDERED: FAMOTIDINE 20 MG/2 ML VIAL IV ONE (18:27)
[2025-07-30 18:33] LABS: Absolute Lymphocytes (CBC) 1.9 K/uL (0.7-4.9); Hematocrit 38.5 % (36.0-45.0); Hemoglobin 12.9 g/dL (12.0-15.0); MCH 30.5 pg (27.0-35.0); MCHC 33.5 g/dL (32.0-36.0); MCV 90.9 fL (80-100); MPV 8.9 fL (7.6-11.3); Nucleated RBC Absolute Count 0.0 (0-0); Nucleated Red Blood Cells % 0.0 % (0-0); RBC Red Blood Cell Count 4.23 M/uL (3.86-4.86); White Blood Count 7.00 thou/uL (4.3-10.9)
[2025-07-30 18:52] LABS: ALT/SGPT 35.0 U/L (13-56); AST/SGOT 71.0 U/L (15-37); Albumin 3.1 g/dL (3.4-5.0); Albumin/Globulin Ratio 0.7 (1.1-1.8); Alkaline Phosphatase 125.0 U/L (45-117); Anion Gap 9.7 mEq/L (5.0-15.0); BUN Blood Urea Nitrogen 15.0 mg/dL (7-18); Bilirubin Indirect, Calculated 0.1 mg/dL (0.2-0.8); Globulin 4.3 g/dL (2.3-3.5); Glucose Level 129.0 mg/dL (74-106); Lipase 14.0 U/L (13-75); Magnesium 1.9 mg/dL (1.6-2.4); Potassium 3.7 mEq/L (3.5-5.1); Troponin High Sensitivity 5.4 pg/mL (<58.9)
[2025-07-30] MEDS ORDERED: MORPHINE 2 MG/ML SYR ONE (20:07)
[2025-07-30] MEDS ORDERED: ONDANSETRON 4 MG/2 ML VIAL ONE (20:07)
--- NOTE | 2025-07-30 20:22 | RAD REPORT ---
EXAM: CTA of the chest, abdomen and pelvis HISTORY: Chest and abdominal pain COMPARISON: February [address] abdomen TECHNIQUE: Multiple contiguous axial images were obtained a CTA of the chest and abdomen with contras t per aortic dissection protocol. Sagittal and coronal 3-D MIP reformats were performed. 100 cc Isovue-370 administered intravenously.Automated exposure control, adjustment of the mA and kV accordi ng to the patient size, and iterative reconstruction. Unless otherwise specified, incidental findings do not require dedicated imaging follow-up. FINDINGS: An aortic dissection not seen. Mild aortic plaque. 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 Calcified plaque celiac artery results in a mild stenosis. LAURITA patent. Calcified plaque proximal left renal artery results in a moderate stenosis. Calcified and noncalcified plaque proximal right renal artery results in a moderate stenosis. 5 mm right lower lobe nodule unchanged is benign. Mild chronic appearing lung opacities. Fatty liver. Small gallstones. Gallbladder sludge. Gallbladder wall not thickened. Spleen, pancreas, adrenals, kidneys and bladder do not demonstrate a significant abnormality No evidence of diverticulitis. Moderate amount stool throughout the colon. Normal appendix Hysterectomy. No adnexal mass Mild diastases rectus abdominis muscles Sclerosis pubic bones consistent with osteitis pubis IMPRESSION: No evidence of an aortic dissection Cholelithiasis and sludge without evidence of cholecystitis
--- NOTE | 2025-07-30 20:28 | RAD REPORT ---
Procedure: Chest Single View HISTORY: Chest pain COMPARISON: 2023 FINDINGS: The lungs appear clear of acute infiltrate. No significant pleural effusion noted. The heart is normal size. IMPRESSION: No acute abnormality is displayed.
--- NOTE | 2025-07-30 21:50 | EDPHYS ---
Physician Documentation [facility] Name: Ginger Marquez Age: 70 yrs Sex: Female : 1955 Arrival Date: 07/30/2025 Time: 18:03 Bed 18 Private MD: ED Physician David Perrin HPI: 07/30 18:12 This 70 yrs old Female presents to ER via Unassigned with complaints of kb Epigastric Pain, Chest Pain, Back Pain. 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 Denies n/v, shortness of breath. . Historical: - Allergies: 18:13 Bactrim; dd2 18:13 Levaquin; dd2 - PMHx: 18:13 Depression; Diverticulitis; Hypertension; Hypothyroidism; dd2 - PSHx: 18:13 Left knee replacement; Total abdominal hysterectomy; dd2 - Immunization history:: Adult Immunizations unknown. - Infectious Disease History:: Denies. - Social history:: Smoking status: Patient denies any tobacco usage or history of. ROS: 18:12 Constitutional: As per HPI kb Exam: 18:12 Constitutional: This is a well developed, well nourished patient who is awake, alert, kb and in no acute distress. Head/Face: Normocephalic, atraumatic. ENT: Moist Mucous membranes Cardiovascular: Regular rate Respiratory: Respirations even and unlabored. No increased work of breathing. Talking in full sentences Abdomen/GI: Soft, non-tender. No distention Skin: Warm, dry with normal turgor. Normal color. MS/ Extremity: Pulses equal, no cyanosis. Neurovascular intact. Full, normal range of motion. Neuro: Awake and alert, GCS 15, oriented to person, place, time, and situation. 18:14 ECG was reviewed by the Attending Physician. kb Vital Signs: 18:11 BP 165 / 59; Pulse 69; Resp 17; Temp 98.3(O); Pulse Ox 99% on R/A; Weight 92.99 kg; dd2 Pain 7/10; 18:25 BP 159 / 61; Pulse 82; Resp 20; Pulse Ox 100% on R/A; kj2 19:20 BP 146 / 56; Pulse 62; Resp 18; Pulse Ox 97% ; kj2 20:20 BP 155 / 54; Pulse 65; Resp 18; Pulse Ox 100% on R/A; kj2 21:15 BP 164 / 56; Pulse 66; Resp 18; Pulse Ox 100% on R/A; kj2 22:05 BP 147 / 57; Pulse 56; Resp 18; Temp 98.1; Pulse Ox 100% on R/A; kj2 18:11 Pain Scale: Adult dd2 MDM: 18:06 Medical Screening Exam initiated kb 18:12 Differential diagnosis: AAA, gastritis, gastroesophageal reflux disease, myocardia kb ischemia or infarction, non-specific abd pain, pancreatitis. Data reviewed: vital signs, nurses notes. 20:36 Consideration of Admission/Observation Escalation of care including kb admission/observation considered. admission considered and recommended. Pt states she believes the pain was due to the gallstones because it started after she ate something fast. States she prefers to go home and will follow up with Dr Abel and Agustín. Will repeat troponin prior to discharge. . Historians other than the Patient: Spouse/Significant Other: spouse. Counseling: I had a detailed discussion with the patient and/or guardian regarding the historical points, exam findings, and any diagnostic results supporting the discharge/admit diagnosis, lab results, radiology results, the need for further work-up and treatment in the hospital. 07/30 18:10 Order name: Basic Metabolic Panel; Complete Time: 18:59 kb 07/30 18:10 Order name: CBC with Diff; Complete Time: 18:35 kb 07/30 18:10 Order name: LFT's; Complete Time: 18:59 kb 07/30 18:10 Order name: Magnesium; Complete Time: 18:59 kb 07/30 18:10 Order name: Troponin HS; Complete Time: 18:59 kb 07/30 18:10 Order name: Lipase; Complete Time: 18:59 kb 07/30 20:36 Order name: Troponin High Sensitivity; Complete Time: 21:49 kb 07/30 18:10 Order name: XRAY Chest (1 view); Complete Time: 20:31 kb 07/30 18:15 Order name: CT Aorta for Dissection; Complete Time: 20:25 kb 07/30 18:10 Order name: Cardiac monitoring; Complete Time: 18:38 kb 07/30 18:10 Order name: EKG - Nurse/Tech; Complete Time: 18:32 kb 07/30 18:10 Order name: IV Saline Lock; Complete Time: 18:32 kb 07/30 18:10 Order name: Labs collected and sent; Complete Time: 18:32 kb 07/30 18:10 Order name: O2 Per Protocol; Complete Time: 18:32 kb 07/30 18:10 Order name: O2 Sat Monitoring; Complete Time: 18:32 kb EC:14 Rate is 69 beats/min. Rhythm is regular. QRS Olin is Normal. NM interval is normal at kb 168 msec. QRS interval is normal at 88 msec. QT interval is normal at 443 msec. Administered Medications: 18:32 Drug: Aspirin PO Chewable Tablet 324 mg PO once; 81 mg tablets x 4 Route: PO; kj2 22:12 Follow up: Response: No adverse reaction kj2 18:32 Drug: Famotidine IVP 20 mg IVP once; dilute with 10 mL 0.9% NaCl; give over 2 minutes kj2 Route: IVP; Site: right antecubital; 22:07 Follow up: Response: No adverse reaction kj2 20:12 Drug: morphine IVP or IV 4 mg IVP once over 4 mins Route: IVP; Infused Over: 4 mins; kj2 Site: right antecubital; 22:07 Follow up: Response: No adverse reaction kj2 20:12 Drug: Ondansetron IVP 4 mg IVP once; over 2 minutes Route: IVP; Site: right antecubital;kj2 22:06 Follow up: Response: No adverse reaction kj2 Disposition: 07/31 07:13 Co-signature as Attending Physician, David Perrin MD I reviewed the patient's care rn provided by the Advanced Practice Provider and agree with the diagnosis and treatment plan. Disposition Summary: 07/30/25 21:50 Discharge Ordered Notes: Location: Home kb Condition: Stable kb Diagnosis - Other cholelithiasis without obstruction kb - Chest pain, unspecified kb Followup: kb - With: Emergency Department - When: As needed - Reason: Worsening of condition Followup: kb - With: Private Physician - When: 2 - 3 days - Reason: Recheck today's complaints, Continuance of care, Re-evaluation by your physician Discharge Instructions: - Discharge Summary Sheet kb - Cholelithiasis, [id number] kb - Nonspecific Chest Pain, Adult, [id number] kb Forms: - Medication Reconciliation Form kb - Antibiotic Education kb - Prescription Opioid Use kb - Patient Portal Instructions kb - Leadership Thank You Letter kb Signatures: Dispatcher [employer] EDMS Agata Grayson FNP-C FNP-David Morgan MD MD rn Jordan, Krystal, RN RN kj2 NEY ESCOBAR RN RN dd2 Corrections: (The following items were deleted from the chart) 07/30 18:16 18:16 Angio Aorta For Dissection+CT.RAD.BRZ ordered. EDMS EDMS 20:36 20:36 Troponin High Sensitivity+C.LAB.BRZ ordered. EDMS EDMS
--- NOTE | 2025-07-30 21:50 | ER ---
Nurse's Notes [facility] Name: Ginger Marquez Age: 70 yrs Sex: Female : 1955 Arrival Date: 07/30/2025 Time: 18:03 Bed 18 Private MD: Diagnosis: Other cholelithiasis without obstruction;Chest pain, unspecified Presentation: 07/30 18:11 Chief complaint: Patient states: UPPER STOMACH PAIN AND CHEST PAIN THAT RADIATES TO THE dd2 MIDDLE BACK THAT BEGAN APPROX 30 MINS AGO. Coronavirus screen: At this time, the client does not indicate any symptoms associated with coronavirus-19. Ebola Screen: No symptoms or risks identified at this time. Initial Sepsis Screen: Does the patient meet any 2 criteria? No. Patient's initial sepsis screen is negative. Does the patient have a suspected source of infection? No. Patient's initial sepsis screen is negative. Risk Assessment: Do you want to hurt yourself or someone else? Patient reports no desire to harm self or others. Onset of symptoms was July 30, 2025 at 17:30. 18:11 Method Of Arrival: Ambulatory dd2 18:11 Acuity: [place] 3 dd2 Triage Assessment: 18:13 General: Appears uncomfortable, Behavior is calm, cooperative, appropriate for age. dd2 Pain: Complains of pain in mid-sternal area and epigastric area Pain radiates to mid back area. Cardiovascular: Reports chest pain. GI: Reports epigastric pain. Historical: - Allergies: 18:13 Bactrim; dd2 18:13 Levaquin; dd2 - PMHx: 18:13 Depression; Diverticulitis; Hypertension; Hypothyroidism; dd2 - PSHx: 18:13 Left knee replacement; Total abdominal hysterectomy; dd2 - Immunization history:: Adult Immunizations unknown. - Infectious Disease History:: Denies. - Social history:: Smoking status: Patient denies any tobacco usage or history of. Screenin:20 [facility] ED Fall Risk Assessment (Adult) History of falling in the last 3 months, kj2 including since admission No falls in past 3 months (0 pts) Confusion or Disorientation No (0 pts) Intoxicated or Sedated No (0 pts) Impaired Gait No (0 pts) Mobility Assist Device Used No (0 pt) Altered Elimination No (0 pt) Score/Fall Risk Level 0 - 2 = Low Risk Maintained a safe environment, Hourly rounding (assess needs \T\ fall precautionary measures) done. Abuse screen: Denies threats or abuse. Denies injuries from another. Nutritional screening: No deficits noted. Tuberculosis screening: No symptoms or risk factors identified. Assessment: 18:20 General: Appears in no apparent distress. Behavior is calm, cooperative. Pain: kj2 Complains of pain in back and mid back area and chest and epigastric area Pain currently is 7 out of 10 on a pain scale. Neuro: Level of Consciousness is awake, alert, obeys commands, Oriented to person, place, time, situation. Cardiovascular: Patient's skin is warm and dry. Chest pain radiates back. Respiratory: Airway is patent Respiratory effort is even, unlabored. GI: No signs and/or symptoms were reported involving the gastrointestinal system. : No signs and/or symptoms were reported regarding the genitourinary system. 19:20 Reassessment: Patient appears in no apparent distress at this time. Patient and/or kj2 family updated on plan of care and expected duration. Pain level reassessed. 20:20 Reassessment: Patient appears in no apparent distress at this time. Patient and/or kj2 family updated on plan of care and expected duration. Pain level reassessed. 21:16 Reassessment: Patient appears in no apparent distress at this time. Patient and/or kj2 family updated on plan of care and expected duration. Pain level reassessed. Patient is alert, oriented x 3, equal unlabored respirations, skin warm/dry/pink. 22:05 Reassessment: Patient appears in no apparent distress at this time. kj2 Vital Signs: 18:11 BP 165 / 59; Pulse 69; Resp 17; Temp 98.3(O); Pulse Ox 99% on R/A; Weight 92.99 kg; dd2 Pain 7/10; 18:25 BP 159 / 61; Pulse 82; Resp 20; Pulse Ox 100% on R/A; kj2 19:20 BP 146 / 56; Pulse 62; Resp 18; Pulse Ox 97% ; kj2 20:20 BP 155 / 54; Pulse 65; Resp 18; Pulse Ox 100% on R/A; kj2 21:15 BP 164 / 56; Pulse 66; Resp 18; Pulse Ox 100% on R/A; kj2 22:05 BP 147 / 57; Pulse 56; Resp 18; Temp 98.1; Pulse Ox 100% on R/A; kj2 18:11 Pain Scale: Adult dd2 ED Course: 18:05 Patient arrived in ED. im 18:06 [facility] Gr[facility]C [facility] kb 18:06 David Perrin MD is Attending Physician. kb 18:08 Cadence Millard, [facility] is Primary Nurse. kj2 18:13 Triage completed. dd2 18:13 Arm band placed on right wrist. EKG completed in triage. Results shown to MD. dd2 18:20 Patient has correct armband on for positive identification. Bed in low position. Call kj2 light in reach. Side rails up X 1. Adult w/ patient. Provided Education on: call light. 18:33 Inserted saline lock: 20 gauge in right antecubital area, using aseptic technique. kj2 Blood collected. Flushed with 10 mL NS. 19:35 XRAY Chest (1 view) In Process Unspecified. EDMS 19:45 CT Aorta for Dissection In Process Unspecified. EDMS 22:05 No provider procedures requiring assistance completed. IV discontinued, intact, kj2 bleeding controlled, No redness/swelling at site. Pressure dressing applied. Administered Medications: 18:32 Drug: Aspirin PO Chewable Tablet 324 mg PO once; 81 mg tablets x 4 Route: PO; kj2 22:12 Follow up: Response: No adverse reaction kj2 18:32 Drug: Famotidine IVP 20 mg IVP once; dilute with 10 mL 0.9% NaCl; give over 2 minutes kj2 Route: IVP; Site: right antecubital; 22:07 Follow up: Response: No adverse reaction kj2 20:12 Drug: morphine IVP or IV 4 mg IVP once over 4 mins Route: IVP; Infused Over: 4 mins; kj2 Site: right antecubital; 22:07 Follow up: Response: No adverse reaction kj2 20:12 Drug: Ondansetron IVP 4 mg IVP once; over 2 minutes Route: IVP; Site: right antecubital;kj2 22:06 Follow up: Response: No adverse reaction kj2 Medication: 18:38 VIS not applicable for this client. kj2 Outcome: 21:50 Discharge ordered by . kb 22:05 Discharged to home ambulatory, with family, kj2 22:05 Condition: stable 22:05 Discharge instructions given to patient, family, Instructed on discharge instructions, follow up and referral plans. Demonstrated understanding of instructions, follow-up care, medications, 22:12 Patient left the ED. kj2 Signatures: Dispatcher [employer] Agata Ang, MATLAB DEVELOPER-C MATLAB DEVELOPER-Natalie Avila Krystal RN RN kj2 NEY ESCOBAR RN RN dd2
[2025-07-30 23:29] VITALS: O2SAT 100
[2025-07-30 23:31] VITALS: BP 147/57; TEMP 98.1
== END 2025-07-30 22:12 | disposition home or self-care (01) ==
LOC: ER 18:03
DX: K80.80 Other cholelithiasis without obstruction (principal)
CPT/HCPCS: 93005; 85025; 80048; 36415; 83735; 80076; 84484 ×2; 83690; 71275; 74175; 71045; 96375; 96374; 99284; Q9967; J2270; J2405